=== PATIENT | male | born 1945 | race Caucasian/White ===

== ENCOUNTER 2017-07-09 19:01 | Inpatient (IN) | payer MEDICARE, MEDICAID ==
--- NOTE | 2017-07-09 19:59 | ED Physician Chart ---
ED Chief Complaint/HPI - Patient Information Date Seen:: 07/09/17 Time Seen:: 19:00 Chief Complaint:: HYPOXEMIA History of Present Illness:: THIS IS A 72 YO SENIOR CARE PATIENT SENT TO ER FOR AN EVALUATION OF HIS SOB AND LOW SATURATION. 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 HE HAS A SEIZURE DISORDER AND HAS HEART DISEASE. Allergies:: Allergies Allergy/AdvReac Type Severity Reaction Status Date / Time No Known Allergies Allergy Verified 07/09/17 19:23 Vitals:: Vital Signs - 8 hr 07/09/17 19:05 Temp 97.6 F HR 82 RR 28 BP 92/64 O2 Sat % 96 Historian:: Medical Records Review:: Nurse's Note Reviewed, Transfer documents Reviewed ED Review of Systems - Review of Systems General/Constitutional: No fever, No chills, No weight loss, Weakness, No diaphoresis, No edema, No loss of appetite Skin: No skin lesions, No rash, No bruising Head: No headache, No light-headedness Eyes: No loss of vision, No pain, No diplopia ENT: No earache, No nasal drainage, No sore throat, No tinnitus Neck: No neck pain, No swelling, No thyromegaly, No stiffness, No mass noted Cardio Vascular: No chest pain, No palpitations, No PND, No orthopnea, No edema Pulmonary: SOB, No cough, No sputum, No wheezing GI: No nausea, No vomiting, No diarrhea, No pain, No melena, No hematochezia, No constipation, No hematemesis G/U: No dysuria, No frequency, No hematuria Musculoskeletal: No bone or joint pain, No back pain, No muscle pain Endocrine: No polyuria, No polydipsia Psychiatric: No prior psych history, No depression, No anxiety, No suicidal ideation Hematopoietic: No bruising, No lymphadenopathy Allergic/Immuno: No urticaria, No angioedema Neurological: No syncope, No focal symptoms, Weakness, No paresthesia, No headache, Seizure, No dizziness, No confusion, No vertigo ED Past Medical History - Past Medical History Obtainable: Yes Past Medical History: HTN, CAD, CVA/TIA, Seizures Family History: None Social History: Non Smoker, No Alcohol, No Drug Use Family Medical History - Family Member Son History Unknown: Yes ED Physical Exam - Physical Examination General/Constitutional: Awake, Well-developed, well-nourished, Alert, No distress, GCS 15, Non-toxic appearing, Ambulatory Head: Atraumatic Eyes: Lids, conjuctiva normal, PERRL, EOMI Skin: Nl inspection, No rash, No skin lesions, No ecchymosis, Well hydrated, No lymphadenopathy ENMT: External ears, nose nl, Nasal exam nl, Lips, teeth, gums nl Neck: Nontender, Full ROM w/o pain, No JVD, No nuchal rigidity, No bruit, No mass, No stridor Respiratory: Nl effort/Exclusion, Clear to Auscultation, No Wheeze/Rhonchi/Rales Cardio Vascular: RRR, No murmur, gallop, rubs, NL S1 S2 GI: No tenderness/rebounding/guarding, No organomegaly, No hernia, Normal BS's, Nondistended, No mass/bruits, No McBurney tenderness : No CVA tenderness Extremities: No tenderness or effusion, Full ROM, normal strength in all extremities, No edema, Normal digits & nails Other Extremities comments:: MUSCLE WASTING OF ALL FOUR EXTREMITIES WITH NO EDEMA Neuro/Psych: Alert/oriented, DTR's symmetric, Normal sensory exam, Judgement/ insight normal, Mood normal, Normal gait, No focal deficits Other Neuro/Psych comments:: RIGHT SIDED WEAKNESS AND UNABLE TO SPEAK WELL Misc: Normal back, No paraspinal tenderness ED Labs/Radiology/EKG Results - Lab Results Results: Last Vital Signs Temp 98.0 F 07/10/17 05:34 Pulse 122 07/10/17 05:34 Resp 26 07/10/17 05:34 BP 96/50 07/10/17 05:34 Pulse Ox 100 07/10/17 05:34 Allergies No Known Allergies Allergy (Verified 07/09/17 19:23) Active Medications Albuterol/Ipratropium (Duoneb Neb) 3 ml HHN [id number] PRN PRN Reason: Shortness of Breath Stop: 09/08/17 06:59 Ceftriaxone Sodium 1 gm/ (Sodium Chloride) 50 mls @ 100 mls/hr IV Q24HR ARMAND Stop: 09/08/17 20:59 Azithromycin 500 mg/ Sodium (Chloride) 250 mls @ 250 mls/hr IV Q24HR ARMAND Stop: 09/08/17 20:59 Norepinephrine Bitartrate 4 mg (/ Dextrose) 254 mls @ 30.48 mls/hr IV TITR PRN ; Protocol; 8 MCG/MIN PRN Reason: BP MAINTENANCE (PER PROTOCOL) Stop: 09/08/17 02:02 Last Titration: 07/10/17 06:45 Dose: 24 mcg/min, 91.44 mls/hr Dextrose/Sodium Chloride (D5-0.9%Ns) 1,000 mls @ 125 mls/hr IV .Q8H ARMAND Stop: 09/08/17 02:14 Last Infusion: 07/10/17 06:00 Dose: 125 mls/hr Heparin Sodium/Dextrose (Heparin Drip) 25,000 units in 250 mls @ 0 mls/hr IV TITR PRN; Protocol; 0 UNITS/HR PRN Reason: PROTOCOL Stop: 09/08/17 02:36 Last Titration: 07/10/17 06:00 Dose: 850 units/hr, 8.5 mls/hr Miscellaneous (Heparin Drip Per Pharmacy) 1 ea PRN ARMAND PRN Reason: Protocol Stop: 09/08/17 00:14 Intake & Output 07/10/17 07/11/17 06:59 06:59 Intake Total 3364.083 Output Total 0 Balance 3364.083 Weight (lbs) 49.895 kg Orders 07/09/17 19:20 CHEST, 1 VIEW [RAD] Stat 07/09/17 19:21 URINALYSIS W/REFLEX Stat 07/09/17 19:45 MRSA SCREEN [facility] [place] Routine 07/09/17 19:48 KEPPRA/LEVETIRACETAM Stat 07/09/17 20:10 BLOOD CULTURE-SANTOSH Stat 07/10/17 02:39 Additional Notes for Nursing ONCE Lab Tests 07/09/17 07/09/17 07/09/17 19:20 19:48 19:48 WBC 8.7 RBC 5.94 H Hgb 16.5 Hct 51.3 MCV 86.3 MCH 27.8 MCHC Differential 32.1 RDW 14.8 Plt Count 123 L MPV 9.3 Neutrophils % Band Neutrophils % 15 H Lymphocytes % Monocytes % Neutrophils (Manual) 72 Lymphocytes 7 L Monocytes 6 Platelet Estimate SLIGHT DECREASED PT INR PTT (Actin FS) Specimen Source arterial Sample Site rr pH 7.52 H pCO2 29.0 L pO2 53.0 L HCO3 26.0 Base Excess 1.6 O2 Saturation 91.0 L Timothy Test yes Vent Rate n/a Inspired O2 21 Tidal Volume n/a PEEP n/a Pressure (ins/psv/peep) n/a Critical Value abroedel Sodium 150 H Potassium 3.1 L Chloride 116 H Carbon Dioxide 24.0 Anion Gap 13.1 BUN 88 H* Creatinine 1.6 H Est GFR ( Amer) TNP Est GFR (Non-Af Amer) TNP BUN/Creatinine Ratio 55.0 Glucose 97 Calcium 10.7 H Total Bilirubin 0.7 AST 26 ALT 18 Alkaline Phosphatase 73 Troponin I Total Protein 8.1 Albumin 3.5 L Globulin 4.6 Albumin/Globulin Ratio 0.8 L TSH 07/09/17 07/09/17 07/09/17 19:48 19:48 21:10 WBC RBC Hgb Hct MCV MCH MCHC Differential RDW Plt Count MPV Neutrophils % Band Neutrophils % Lymphocytes % Monocytes % Neutrophils (Manual) Lymphocytes Monocytes Platelet Estimate PT 11.1 INR 1.07 PTT (Actin FS) 26.9 Specimen Source Sample Site pH pCO2 pO2 HCO3 Base Excess O2 Saturation Timothy Test Vent Rate Inspired O2 Tidal Volume PEEP Pressure (ins/psv/peep) Critical Value Sodium Potassium Chloride Carbon Dioxide Anion Gap BUN Creatinine Est GFR ( Amer) Est GFR (Non-Af Amer) BUN/Creatinine Ratio Glucose Calcium Total Bilirubin AST ALT Alkaline Phosphatase Troponin I 0.03 Total Protein Albumin Globulin Albumin/Globulin Ratio TSH 1.94 07/10/17 07/10/17 00:06 04:10 WBC 6.0 D RBC 5.11 Hgb 14.3 Hct 43.6 D MCV 85.3 MCH 28.0 MCHC Differential 32.8 RDW 14.6 Plt Count 100 L MPV 11.2 Neutrophils % 97.3 H Band Neutrophils % Lymphocytes % 1.6 L Monocytes % 1.0 L Neutrophils (Manual) Lymphocytes Monocytes Platelet Estimate PT INR PTT (Actin FS) Specimen Source arterial Sample Site rr pH 7.48 H pCO2 23.0 L* pO2 88.0 HCO3 21.3 Base Excess -4.7 L O2 Saturation 97.0 Timothy Test positive Vent Rate n/a Inspired O2 100% Tidal Volume n/a PEEP N/A Pressure (ins/psv/peep) N/A Critical Value ABROEDEL Sodium Potassium Chloride Carbon Dioxide Anion Gap BUN Creatinine Est GFR ( Amer) Est GFR (Non-Af Amer) BUN/Creatinine Ratio Glucose Calcium Total Bilirubin AST ALT Alkaline Phosphatase Troponin I Total Protein Albumin Globulin Albumin/Globulin Ratio TSH - Radiology Results Results: CHEST = NAD WITH OLD FIBROTIC AREAS NOTED ED Assessment - Assessment General Assessment: HYPOXEMIA DEHYDRATION ED Septic Shock - . Is Septic Shock (SBP<90, OR Lactate>4 mmol\L) present?: No - <6hrs of presentation: Vital Signs: Vital Signs - 8 hr 07/09/17 19:05 Temp 97.6 F HR 82 RR 28 BP 92/64 O2 Sat % 96 ED Reassessment (Disposition) - Reassessment Reassessment Condition:: Improved - Diagnosis Diagnosis:: HYPOXEMIA DEHYDRATION - Aftercare/Follow up Instructions Aftercare/Follow-Up Instructions:: Counseled pt & family regarding lab results/ diagnosis & need follow up - Patient Disposition Discharge/Transfer:: Acute Care w/in this hosp Admitted to:: Telemetry Admitting Medical Physician:: Caio Castaneda ED Discharge Plan - Patient Disposition Admit/Discharge/Transfer: Acute Care w/in this hosp Condition at Disposition: Improved
[2017-07-09 20:01] LABS: HEMATOCRIT 51.3 % (41.0-60); HEMOGLOBIN 16.5 gm/dL (12-16); MEAN CELL VOLUME 86.3 fl (80-99); MEAN CORPUSCULAR HEMOGLOBIN 27.8 pg (27.0-31.0); MEAN CORPUSCULAR HGB CONC 32.1 pg (28.0-36.0); MEAN PLATELET VOLUME 9.3 fl; PLATELET COUNT 123 Th/cmm (150-400); RED BLOOD COUNT 5.94 Mil/cmm (3.80-5.80); RED CELL DISTRIBUTION WIDTH 14.8 % (11.5-20.0); WHITE BLOOD COUNT 8.7 Th/cmm (4.8-10.8)
[2017-07-09 20:03] LABS: MANUAL DIFF REQUIRED? YES
[2017-07-09 20:10] LABS: ALLEN TEST yes; pH 7.52 (7.35-7.45)
[2017-07-09] MEDS ORDERED: Sodium Chloride 0.9% 1,000 ML IV ONE (20:10)
[2017-07-09 20:17] LABS: ALB/GLOB RATIO 0.8 (1.0-1.8); ALBUMIN 3.5 gm/dL (4.2-5.5); ALKALINE PHOSPHATASE 73 U/L (34-104); ANION GAP 13.1 (7.0-16.0); BILIRUBIN,TOTAL 0.7 mg/dL (0.3-1.0); CALCIUM SERUM 10.7 mg/dL (8.6-10.3); CHLORIDE 116 mEq/L (98-107); CREATININE - SERUM 1.6 mg/dL (0.7-1.3); GLUCOSE 97 mg/dL (70-105); POTASSIUM SERUM 3.1 mEq/L (3.5-5.1); SGOT 26 U/L (13-39); SGPT/ALT 18 U/L (7-52); SODIUM SERUM 150 mEq/L (136-145); TOTAL PROTEIN,SERUM 8.1 gm/dL (6.0-8.3)
[2017-07-09 20:21] LABS: BUN - UREA NITROGEN 88 mg/dL (7-25)
[2017-07-09 20:49] LABS: BAND NEUTROPHILE 15 % (0-10); LYMPHOCYTE 7 % (20-50); MONOCYTE 6 % (2-10); NEUTROPHILS 72 % (40-80)
[2017-07-09 20:50] LABS: PLATELET ESTIMATE SLIGHT DECREASED (NORMAL)
[2017-07-09 21:16] LABS: INR 1.07 (0.5-1.4); PROTHROMBIN TIME (TEST) 11.1 SECONDS (9.5-11.5)
[2017-07-09] MEDS ORDERED: Albuterol/Ipratropium Neb 3 ML AERS HHN PRN (22:02)
[2017-07-09] MEDS ORDERED: Sodium Chloride 0.9% 1,000 ML IV SCH (22:03)
[2017-07-09] MEDS ORDERED: Azithromycin 500 MG in Sodium Chloride 0.9% 250 ML IV SCH (22:15)
[2017-07-09] MEDS ORDERED: Albuterol/Ipratropium Neb 3 ML AERS HHN ONE (23:36)
[2017-07-10] MEDS ORDERED: Sodium Chloride 0.9% 1,000 ML IV ONE (00:09)
[2017-07-10] MEDS: D5-0.9%NS 1,000 ML IV SCH ×2 (01:00→10:38)
[2017-07-10] MEDS ORDERED: SODIUM CHLORIDE 0.9% IV ONE (02:05)
[2017-07-10] MEDS ORDERED: LIDOCAINE IV ONE (02:05)
[2017-07-10] MEDS ORDERED: POTASSIUM CHLORIDE IV ONE (02:05)
[2017-07-10 02:13] LABS: pH 7.48 (7.35-7.45)
[2017-07-10 02:14] LABS: ALLEN TEST positive
[2017-07-10] MEDS ORDERED: KCL 20mEq/100mL Premix 40 MEQ/200 ML PIGGYBACK IV ONE (02:19)
[2017-07-10] MEDS ORDERED: Norepinephrine 4 mg/4mL Vial IV ONE ×3 (02:59→10:18)
[2017-07-10 04:40] VITALS: BP 91/55
[2017-07-10] MEDS: Heparin 25,000 Units In D5W 25,000 UNITS/250 ML BAG IV PRN (04:46)
[2017-07-10 05:06] LABS: LYMPHOCYTE ABSOLUTE 0.1 Th/cmm (1.5-3.0); MANUAL DIFF REQUIRED? YES; MONOCYTE ABSOLUTE 0.1 Th/cmm (0.3-1.0); NEUTROPHILE ABSOLUTE 5.8 Th/cmm (1.8-8.0)
[2017-07-10 05:13] LABS: % LYMPHOCYTES 1.6 % (20.0-50.0); % NEUTROPHILS 97.3 % (40.0-80.0); HEMOGLOBIN 14.3 gm/dL (12-16); MEAN CELL VOLUME 85.3 fl (80-99); MEAN CORPUSCULAR HGB CONC 32.8 pg (28.0-36.0); MEAN PLATELET VOLUME 11.2 fl; PLATELET COUNT 100 Th/cmm (150-400); RED BLOOD COUNT 5.11 Mil/cmm (3.80-5.80); RED CELL DISTRIBUTION WIDTH 14.6 % (11.5-20.0)
[2017-07-10 05:47] LABS: ALB/GLOB RATIO 0.7 (1.0-1.8); ALBUMIN 2.5 gm/dL (4.2-5.5); ALKALINE PHOSPHATASE 262 U/L (34-104); ANION GAP 13.8 (7.0-16.0); BILIRUBIN,TOTAL 1.2 mg/dL (0.3-1.0); CALCIUM SERUM 9.1 mg/dL (8.6-10.3); CHLORIDE 124 mEq/L (98-107); CHOLESTEROL 48 mg/dL (<200); CREATININE - SERUM 1.7 mg/dL (0.7-1.3); GLUCOSE 78 mg/dL (70-105); HDL -HIGH DENSITY LIPOPROTEIN 18 mg/dL (23-92); MAGNESIUM 1.9 mg/dL (1.9-2.7); PHOSPHOROUS 3.1 mg/dL (2.5-5.0); SGOT 477 U/L (13-39); SGPT/ALT 154 U/L (7-52); SODIUM SERUM 153 mEq/L (136-145); TOTAL PROTEIN,SERUM 5.9 gm/dL (6.0-8.3); TRIGLYCERIDES 120 mg/dL (<150); URIC ACID 7.9 mg/dL (4.4-7.6)
[2017-07-10 06:45] LABS: HEMATOCRIT 43.6 % (41.0-60)
[2017-07-10 08:33] LABS: BUN - UREA NITROGEN 85 mg/dL (7-25); POTASSIUM SERUM 2.8 mEq/L (3.5-5.1)
--- NOTE | 2017-07-10 09:40 | Diagnostic Imaging Report ---
CT scan of the chest without intravenous contrast HISTORY: Shortness of breath Total DLP equals 212 CTDI equals 5.1 Axial sections were obtained from a level above the clavicles down to level below the diaphragm. The examination demonstrates bilateral multifocal airspace infiltrate/consolidation within the right lower lobe and left lower lobes predominantly. Additional parenchymal changes also noted in the right upper and right middle lobe areas. Findings most likely related to an inflammatory etiology (pneumonia). Clinical correlation is needed. No significant free pleural fluid is seen. The heart size is normal. Coronary artery calcification noted. No abnormal mediastinal masses. No definite hilar masses. IMPRESSION: 1. Extensive multifocal bilateral infiltrates with more consolidation in the right lower lobe. Findings consistent with pneumonia possibly related to aspiration. Clinical correlation is needed. 2. Coronary artery calcification 3. Inferior vena cava filter
--- NOTE | 2017-07-10 09:41 | Diagnostic Imaging Report ---
Portable chest x-ray HISTORY: Shortness of breath The heart size is normal. There is hazy infiltrate within left lower lobe. More focal infiltrate noted in the right lower lobe. Changes suggest pneumonia. IMPRESSION: 1. Increased infiltrate in the right lower lobe since July 09, 2017. Persistent hazy infiltrate left lower lobe.
[2017-07-10 10:40] LABS: INR 1.22 (0.5-1.4); PROTHROMBIN TIME (TEST) 12.8 SECONDS (9.5-11.5)
--- NOTE | 2017-07-10 10:43 | Diagnostic Imaging Report ---
Portable chest x-ray HISTORY: Pain The heart size is normal. Accentuation of interstitial markings within the right lower lobe. Infiltrate is difficult to exclude. Clinical correlation and follow-up recommended. IMPRESSION: 1. Questionable infiltrate right lower lobe. Clinical correlation and follow-up recommended.
[2017-07-10] MEDS ORDERED: Lactated Ringer 1,000 ML IV SCH (11:23)
[2017-07-10] MEDS ORDERED: Cefepime 1 GM in Sodium Chloride 0.9% 50 ML IV SCH (11:30)
[2017-07-10] MEDS ORDERED: Sodium Bicarbonate 8.4% 50mEq PFS IVP ONE (15:11)
[2017-07-10] MEDS: Albuterol/Ipratropium Neb 3 ML AERS HHN SCH ×3 (16:00→22:55)
--- NOTE | 2017-07-10 17:34 | Consultation ---
Consult Note - Consult Note Service Date: 07/10/17 Referring Physician: Caio Castaneda Consult Note: PHYSICIAN Consultation Note: Date of Admission: 07/09/17 Purpose of Consultation: Sepsis. Chief Complaint: Patient LEONA COTTON was admitted to location Intensive Care Unit with HYPOXEMIA,RESPIRATORY DISTRESS,ARF. History of Present Illness:The patient is a 72-year-old male with a past medical history of CVA, TIA, seizure disorder, carotid disease, hypertension brought in from nursing facility for shortness of breath and hypoxia, on pulse ox. On initial evaluation, the patient's temperature was 97.6 degrees Fahrenheit and WBC count was 8700 with 15% bands. The patient was hypotensive, so fluid boluses were given as well as he was started on high dose of Levophed. The patient was admitted to ICU, initially patient had received Rocephin, Zithromax. The patient also received Solu-Medrol 125 mg IV, 1 dose. Ultimately, antibiotics were changed to vancomycin and cefepime. Cefepime was changed to Zosyn. Meanwhile, chest x-ray showed a right lower lobe infiltrate. The patient was aphasic. Follows command, but unable to give any history. Past Medical History: hypertension, coronary artery disease, CVA, TIA, seizure disorder. Allergies Allergy/AdvReac Type Severity Reaction Status Date / Time No Known Allergies Allergy Verified 07/09/17 19:23 Vital Signs Temp 99.6 F 07/10/17 12:00 Pulse 88 07/10/17 16:00 Resp 21 07/10/17 16:00 BP 116/70 07/10/17 15:00 Pulse Ox 100 07/10/17 16:00 Intake & Output 07/09/17 07/10/17 07/10/17 18:59 06:59 18:59 Intake Total 2364.083 1507.65 Output Total 0 Balance 2364.083 1507.65 Weight (lbs) 49.895 kg Intake: Intake, IV Amount 2364.083 1507.65 Azithromycin 500 mg In 250 Sodium Chloride 0.9% 250 ml @ 250 mls/hr IV Q24HR ARMAND Rx#:[id number] D5-0.9%Ns 1,000 ml @ 125 625 375 mls/hr IV .Q8H ARMAND Rx#: [id number] Heparin 25,000 Units In 10.483 72.25 D5W 25,000 units In 250 ml @ 0 UNITS/HR IV TITR PRN Rx#:[id number] Norepinephrine 4 mg In 228.60 533.4 Dextrose 5% 250 ml @ 8 MCG/MIN 30.48 mls/hr IV TITR PRN Rx#:[id number] Potassium Chloride 40 meq 277 Lidocaine 1% 20mL Vial 70 mg In Sodium Chloride 0.9% 250 ml @ 68 mls/hr IV X1 ONE Rx#:[id number] Vancomycin HCl 1 gm In 250 Sodium Chloride 0.9% 250 ml @ 165 mls/hr IV Q24H [facility] Rx#:[id number] Oral 0 Output: Urine 0 Other: # Bowel Movements 1 Stool Characteristics Soft Brown Laboratory Results - last 24 hr 07/10/17 07/10/17 07/10/17 00:06 04:10 04:10 WBC 6.0 D RBC 5.11 Hgb 14.3 Hct 43.6 D MCV 85.3 MCH 28.0 MCHC Differential 32.8 RDW 14.6 Plt Count 100 L MPV 11.2 Neutrophils % 97.3 H Lymphocytes % 1.6 L Monocytes % 1.0 L PT INR PTT (Actin FS) D-Dimer Specimen Source arterial Sample Site rr pH 7.48 H pCO2 23.0 L* pO2 88.0 HCO3 21.3 Base Excess -4.7 L O2 Saturation 97.0 Timothy Test positive Vent Rate n/a Inspired O2 100% Tidal Volume n/a PEEP N/A Pressure (ins/psv/peep) N/A Critical Value ABROEDEL Sodium 153 H Potassium 2.8 L* Chloride 124 H Carbon Dioxide 18.0 L Anion Gap 13.8 BUN 85 H* Creatinine 1.7 H Est GFR ( Amer) TNP Est GFR (Non-Af Amer) TNP BUN/Creatinine Ratio 50.0 Glucose 78 Whole Bld Lactic Acid Uric Acid 7.9 H Calcium 9.1 Phosphorus 3.1 Magnesium 1.9 Total Bilirubin 1.2 H AST 477 H ALT 154 H Alkaline Phosphatase 262 H B-Natriuretic Peptide Total Protein 5.9 L Albumin 2.5 L Globulin 3.4 Albumin/Globulin Ratio 0.7 L Triglycerides 120 Cholesterol 48 LDL Cholesterol Direct 13 L HDL Cholesterol 18 L TSH 07/10/17 07/10/17 07/10/17 04:10 04:10 04:10 WBC RBC Hgb Hct MCV MCH MCHC Differential RDW Plt Count MPV Neutrophils % Lymphocytes % Monocytes % PT INR PTT (Actin FS) D-Dimer 4700 H Specimen Source Sample Site pH pCO2 pO2 HCO3 Base Excess O2 Saturation Timothy Test Vent Rate Inspired O2 Tidal Volume PEEP Pressure (ins/psv/peep) Critical Value Sodium Potassium Chloride Carbon Dioxide Anion Gap BUN Creatinine Est GFR ( Amer) Est GFR (Non-Af Amer) BUN/Creatinine Ratio Glucose Whole Bld Lactic Acid Uric Acid Calcium Phosphorus Magnesium Total Bilirubin AST ALT Alkaline Phosphatase B-Natriuretic Peptide < 5.0 L Total Protein Albumin Globulin Albumin/Globulin Ratio Triglycerides Cholesterol LDL Cholesterol Direct HDL Cholesterol TSH 2.64 07/10/17 07/10/17 07/10/17 04:10 07:11 10:30 WBC RBC Hgb Hct MCV MCH MCHC Differential RDW Plt Count MPV Neutrophils % Lymphocytes % Monocytes % PT 12.8 H INR 1.22 PTT (Actin FS) 34.9 91.5 H* D-Dimer Specimen Source Sample Site pH pCO2 pO2 HCO3 Base Excess O2 Saturation Timothy Test Vent Rate Inspired O2 Tidal Volume PEEP Pressure (ins/psv/peep) Critical Value Sodium Potassium Chloride Carbon Dioxide Anion Gap BUN Creatinine Est GFR ( Amer) Est GFR (Non-Af Amer) BUN/Creatinine Ratio Glucose Whole Bld Lactic Acid 5.76 H* Uric Acid Calcium Phosphorus Magnesium Total Bilirubin AST ALT Alkaline Phosphatase B-Natriuretic Peptide Total Protein Albumin Globulin Albumin/Globulin Ratio Triglycerides Cholesterol LDL Cholesterol Direct HDL Cholesterol TSH 07/10/17 Unknown WBC RBC Hgb Hct MCV MCH MCHC Differential RDW Plt Count MPV Neutrophils % Lymphocytes % Monocytes % PT INR PTT (Actin FS) D-Dimer Specimen Source Sample Site pH pCO2 pO2 HCO3 Base Excess O2 Saturation Timothy Test Vent Rate Inspired O2 Tidal Volume PEEP Pressure (ins/psv/peep) Critical Value Sodium Potassium Chloride Carbon Dioxide Anion Gap BUN Creatinine Est GFR ( Amer) Est GFR (Non-Af Amer) BUN/Creatinine Ratio Glucose Whole Bld Lactic Acid 3.98 H* Uric Acid Calcium Phosphorus Magnesium Total Bilirubin AST ALT Alkaline Phosphatase B-Natriuretic Peptide Total Protein Albumin Globulin Albumin/Globulin Ratio Triglycerides Cholesterol LDL Cholesterol Direct HDL Cholesterol TSH Home Medication Medication Instructions Recorded Type Acetaminophen [Tylenol] 650 mg PO Q6HR PRN 07/09/17 History Ascorbic Acid [Vitamin C] 500 mg PO DAILY 07/09/17 History Atorvastatin Calcium [Lipitor] 20 mg PO HS 07/09/17 History Dextran 70/Hypromellose/Pf 1 each EACH EYE DAILY 07/09/17 History [Artificial Tears Drops] Docusate Sodium [Colace] 100 mg PO DAILY 07/09/17 History Levetiracetam [Keppra Xr] 750 mg PO Q12HR 07/09/17 History Magnesium Hydroxide [Milk of 30 ml PO HS PRN 07/09/17 History Magnesia] Mirtazapine 7.5 mg PO HS 07/09/17 History Multivitamin with Minerals 1 tab PO DAILY 07/09/17 History [Multivitamins with Minerals] Omeprazole 20 mg PO DAILY 07/09/17 History Sertraline [Zoloft] 25 mg PO DAILY 07/09/17 History Sucralfate [Carafate] 10 ml PO ACHS 07/09/17 History Zolpidem Tartrate [Ambien] 5 mg PO HS PRN 07/09/17 History Current Medications Generic Name Dose Route Start Last Admin Trade Name Freq PRN Reason Stop Dose Admin Albuterol/Ipratropium 3 ml 07/10/17 15:00 07/10/17 16:00 Duoneb Neb HHN 09/08/17 14:59 Not Given Q4HRT ARMAND Norepinephrine Bitartrate 4 mg 254 mls @ 30.48 mls/hr 07/10/17 02:03 15:42 / Dextrose IV 09/08/17 02:02 30 mcg/min TITR PRN 114.3 mls/hr BP MAINTENANCE (PER PROTOCOL) Administration Protocol 8 MCG/MIN Dextrose/Sodium Chloride 1,000 mls @ 125 mls/hr 07/10/17 02:15 07/10/17 10:38 D5-0.9%Ns IV 09/08/17 02:14 125 mls/hr .Q8H ARMAND Administration Heparin Sodium/Dextrose 25,000 units in 250 mls @ 0 mls/hr 07/10/17 02:37 08/24 14:30 Heparin Drip IV 09/08/17 02:36 0 units/hr TITR PRN 0 mls/hr PROTOCOL Titration Protocol 0 UNITS/HR Vancomycin HCl 1 gm/ Sodium 250 mls @ 165 mls/hr 07/10/17 11:30 07/10/17 15: 15 Chloride IV 09/08/17 11:29 Infused Q24H ARMAND Infusion Piperacillin Sod/Tazobactam 50 mls @ 100 mls/hr 07/10/17 13:00 07/10/17 15:24 Sod 2.25 gm/ Sodium Chloride IV 09/08/17 12:59 100 mls/hr Q8HR ARMAND Administration Review of Systems: A 12 point ROS was reviewed with the pertinent positive and negatives noted in the HPI. The patient unable to give any history. CONSTITUTIONAL: The patient had no fever, no chills, no weight loss, generalized weakness, no diaphoresis, no edema, no loss of appetite. HEENT: There is no diplopia, no photophobia, no sore throat. RESPIRATORY: The patient has no cough, but patient has shortness of breath and hypoxia. No wheezing. CARDIOVASCULAR: No chest pain or palpitation. GASTROINTESTINAL: No nausea, no vomiting, no diarrhea, no constipation. GENITOURINARY: No dysuria, no hematuria. NEUROLOGIC: No headache, no dizziness, no focal weakness. Social History Smoking Status Unknown if ever smoked Lives at [facility]. Family Medical History Unknown. Physical Exam: VITAL SIGNS: Shows temperature is 98.4 degrees Fahrenheit, pulse is 88, respiration 21, blood pressure 120/68, on Levophed. GENERAL: The patient is cachectic, not in acute distress. HEENT: Head is normocephalic, atraumatic. Oral cavity moist, pink tongue. Eyes: Pallor is present, no icterus. PERRLA, EOMI. NECK: Supple, no JVD, no carotid bruit. Trachea midline. CHEST: Bilateral breath sounds. No crackles or wheezing. HEART: S1, S2 within normal limits. Regular rhythm. No murmur, no gallop. ABDOMEN: Soft, nontender, nondistended. Bowel sounds present. EXTREMITIES: No cyanosis, no clubbing, no edema. SKIN: The patient's lower extremity skin is mottled. CENTRAL NERVOUS SYSTEM: Alert and awake, follows the command, but unable to communicate. Aphasic. The patient has some weakness on the left side. BACK: The patient has stage II sacral decubitus ulcer with no surrounding erythema. LABORATORY DATA: Current lab shows WBC count 6000, hemoglobin 14.3, hematocrit 43.6, platelets are 100,000, neutrophil 97.3%. INR 1.22 and PTT 91.5, D-dimer is 4700. Sodium is 153, potassium 2.8, chloride 104, bicarbonate is 18, BUN is 85, creatinine 1.7, glucose is 78 and lactic acid is 5.76, AST 477, ALT is 154, alkaline phosphatase is 262. Chest x-ray shows worsening of infiltrate on the right side. CT chest revealed extensive multifocal bilateral infiltrate, more consolidation in the right lower lobe consistent with pneumonia, possibly related to aspiration, coronary artery calcification inferior vena cava filter. IMPRESSION: 1. Severe septic shock with multiorgan failure. 2. Pneumonia, likely aspiration pneumonia versus atypical pneumonia. 3. Cerebrovascular accident. 4. Respiratory insufficiency. 5. Hepatitis. 6. Benign prostatic hypertrophy. 7. Acute renal failure, acute kidney injury. 8. Lactic acidosis. 9. History of hypertension. 10. History of chronic disease. 11. History of seizure disorder. 12. Sacral decubitus ulcer. RECOMMENDATION AND PLAN: We will continue vancomycin and Zosyn, add Levaquin. Check legionella and mycoplasma serologies. Thank you, Dr. Castaneda for involving me in taking care of this patient. I do not give IV fluid support and pressor support. Signed, Jose F Ng M.D. 07/10/[id number]
--- NOTE | 2017-07-10 20:31 | Consultation ---
DATE OF CONSULTATION: REASON FOR CONSULTATION: The patient seen in the ICU for Sena catheter placement. HISTORY OF PRESENT ILLNESS: This is a 72-year-old skilled nursing patient, who was admitted with respiratory failure and history of previous CVA, left-sided paralysis, and seizure disorder. He also has heart disease and failure to thrive. A Sena catheter was unsuccessful by the nurses. This was needed to monitor urine output as the patient did not urinate since admission. He is on Levophed drip for hypotension and sepsis with elevated lactic acid. PAST MEDICAL HISTORY: Documented as having hypertension, coronary artery disease, and stroke as well as seizures. SOCIAL HISTORY: [facility] resident. No other information available. REVIEW OF SYSTEMS: No fever or chills, but weight loss was noted. He has a sacral decubitus as well. No seizures were recorded. No chest pain, but there was shortness of breath. He requires breathing assistance. No vomiting or diarrhea noted. No dysuria or hematuria reported. PREADMISSION MEDICATIONS: Include Keppra, Lipitor, mirtazapine, omeprazole, Zoloft, Carafate, and zolpidem along with vitamins, stool softeners, etc. PHYSICAL EXAMINATION: GENERAL: He is noncommunicative, contracted, lethargic, significantly malnourished. VITAL SIGNS: Temperature 99.6 last recorded, heart rate 88, and blood pressure 114/66 on Levophed support. HEAD AND NECK: Normocephalic. Trachea central. Pupils equal and reactive. No jaundice. Thyroid and lymph nodes not palpable. Carotid bruit absent. CHEST: Loss of muscle mass. Intercostal muscles are fairly atrophic or diminished. LUNGS: Clear to auscultation. No rales. Occasional rhonchi. HEART: Heart sounds normal in sinus rhythm, no murmur. ABDOMEN: Soft, nontender, no organomegaly, mass, or hernia. GENITALIA: Normal male. Meatus exposed and normal. Penis circumcised. EXTREMITIES: Severe contractures of left leg at the hip and knee and difficulty opening up the legs to expose the perineum. Sacral decubitus ulcer. NEUROLOGIC: Unable to test. The patient does have hemiplegia. LABORATORY DATA: White count 6000, hemoglobin 14.3, and platelets 100. PT/INR 1.2. D-dimer elevated to 4700. Heparin drip was started and then stopped. PCO2 elevated to 23. Potassium down to 2.8, sodium up to 153, BUN 85, creatinine 1.7, lactic acid 5.7. Liver functions mildly elevated, AST elevated to 477, ALT to 154, and alkaline phosphatase 262. DIAGNOSTIC DATA: Chest CT showed bilateral infiltrates extensive and coronary artery calcification and vena cava filter. IMPRESSION: Septic shock from pneumonia, needs a urine output monitoring. We will attempt a Sena catheter at the bedside. Ultrasound had showed the bladder at only about 150 mL in it, but the study was inadequate due to the patient's habitus. Examining at the bedside, the patient was found to be full of urine and had urinated a large amount in the bed sheets. I attempted a Sena catheter size 16 coude to help with the monitoring and was able to get it in with minimal resistance. There was hardly any urine in the bladder at this point. IMPRESSION: Septic shock from bilateral pneumonia, possibly aspiration, history of coronary artery disease, history of stroke, failure to thrive, and history of decubitus ulcers. The patient also has severe contractures of lower extremities. History of hyperlipidemia and hypertension as well. JOB# [id number]
[2017-07-10] MEDS ORDERED: Azithromycin 500 mg in 0.9% NS 250 mL IV SCH (21:00)
[2017-07-10] MEDS ORDERED: cefTRIAXone 1 GM in Sodium Chloride 0.9% 50 ML IV SCH (21:00)
[2017-07-10] MEDS: PIPERACILLIN SODIUM IV SCH (22:05)
[2017-07-10] MEDS: TAZOBACT IV SCH (22:05)
[2017-07-10] MEDS: SODIUM CHLORIDE 0.9% IV SCH (22:05)
--- NOTE | 2017-07-11 01:20 | Consultation ---
DATE OF CONSULTATION: 07/10/2017 REFERRING PHYSICIAN: Dr. Castaneda. REASON FOR CONSULTATION: CVA. HISTORY OF PRESENT ILLNESS: The patient is a 72-year-old male with a past medical history of CVA, TIA, seizure disorder, carotid disease, hypertension brought in from nursing facility for shortness of breath and hypoxia, on pulse ox. On initial evaluation, the patient's temperature was 97.6 degrees Fahrenheit and WBC count was 8700 with 15% bands. The patient was hypotensive, so fluid boluses were given as well as he was started on high dose of Levophed. The patient was admitted to ICU, initially patient had received Rocephin, Zithromax. The patient also received Solu-Medrol 125 mg IV, 1 dose. Ultimately, antibiotics were changed to vancomycin and cefepime. Cefepime was changed to Zosyn. Meanwhile, chest x-ray showed a right lower lobe infiltrate. The patient was ___. Follows command, but unable to give any history. PAST MEDICAL HISTORY: As mentioned above, hypertension, coronary artery disease, CVA, TIA, seizure disorder. SOCIAL HISTORY: The patient lives in a shelter. No history of smoking, alcohol or drug use. FAMILY HISTORY: Not available. REVIEW OF SYSTEMS: The patient unable to give any history. The patient had no fever, no chills, no weight loss, generalized weakness, no diaphoresis, no edema, no loss of appetite. HEENT: There is no diplopia, no photophobia, no sore throat. RESPIRATORY: The patient has no cough, but patient has shortness of breath and hypoxia. No wheezing. CARDIOVASCULAR: No chest pain or palpitation. GASTROINTESTINAL: No nausea, no vomiting, no diarrhea, no constipation. GENITOURINARY: No dysuria, no hematuria. NEUROLOGIC: No headache, no dizziness, no focal weakness. PHYSICAL EXAMINATION: VITAL SIGNS: Shows temperature is 98.4 degrees Fahrenheit, pulse is 88, respiration 21, blood pressure 120/68, on Levophed. GENERAL: The patient is cachectic, not in acute distress. HEENT: Head is normocephalic, atraumatic. Oral cavity moist, pink tongue. Eyes: Pallor is present, no icterus. PERRLA, EOMI. NECK: Supple, no JVD, no carotid bruit. Trachea midline. CHEST: Bilateral breath sounds. No crackles or wheezing. HEART: S1, S2 within normal limits. Regular rhythm. No murmur, no gallop. ABDOMEN: Soft, nontender, nondistended. Bowel sounds present. EXTREMITIES: No cyanosis, no clubbing, no edema. SKIN: The patient's lower extremity skin is mottled. CENTRAL NERVOUS SYSTEM: Alert and awake, follows the command, but unable to communicate. Aphasic. The patient has ___ weakness on the left side. BACK: The patient has stage II sacral decubitus ulcer with no surrounding erythema. LABORATORY DATA: Current lab shows WBC count 6000, hemoglobin 14.3, hematocrit 43.6, platelets are 100,000, neutrophil 97.3%. INR 1.22 and PTT 91.5, D-dimer is 4700. Sodium is 153, potassium 2.8, chloride 104, bicarbonate is 18, BUN is 85, creatinine 1.7, glucose is 78 and lactic acid is 5.76, AST 477, ALT is 154, alkaline phosphatase is 262. Chest x-ray shows worsening of infiltrate on the right side. CT chest revealed extensive multifocal bilateral infiltrate, more consolidation in the right lower lobe consistent with pneumonia, possibly related to aspiration, coronary artery calcification inferior vena cava filter. IMPRESSION: 1. Severe septic shock with multiorgan failure. 2. Pneumonia, likely aspiration pneumonia versus atypical pneumonia. 3. Cerebrovascular accident. 4. Respiratory insufficiency. 5. Hepatitis. 6. Benign prostatic hypertrophy. 7. Acute renal failure, acute kidney injury. 8. Lactic acidosis. 9. History of hypertension. 10. History of chronic disease. 11. History of seizure disorder. 12. Sacral decubitus ulcer. RECOMMENDATION AND PLAN: We will continue vancomycin and Zosyn, add Levaquin. Check legionella and mycoplasma serologies. Thank you, Dr. Castaneda for involving me in taking care of this patient. I do not give IV fluid support and pressor support. JOB# [id number]
[2017-07-11] MEDS: Albuterol/Ipratropium Neb 3 ML AERS HHN SCH ×6 (02:04→22:50)
[2017-07-11 02:48] LABS: URINE MICROSCOPIC INDICATED? YES; URINE SOURCE CLEAN C
[2017-07-11] MEDS: D5-0.9%NS 1,000 ML IV SCH (03:23)
--- NOTE | 2017-07-11 04:04 | Consultation ---
DATE OF CONSULTATION: CHIEF COMPLAINT: The patient came in because of hypotension. HISTORY OF PRESENT ILLNESS: This is a 72-year-old male with past medical history of CVA, who was brought in because of hypotension. A few hours prior to admission, the patient was noted to be in respiratory distress. This was associated with hypoxemia. He was placed on 5 liters nasal cannula and his saturation improved to 95%. He was also found to be hypotensive with a blood pressure of 89/66. He was then brought to the Emergency Room. Chest x-ray revealed bilateral healthcare-acquired pneumonia. CT scan of the chest confirmed bilateral infiltrates, more on the right than on the left. White count was 8.7 with a BNP of less than 5. Labs drawn 1 month ago showed a BUN/creatinine of 23/0.67. His labs on admission were sodium of 150, BUN/creatinine of 88/1.6. He had no history of nausea and vomiting, no diarrhea. PAST MEDICAL HISTORY: 1. 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 2. Coronary artery disease. 3. Muscle atrophy. 4. Epilepsy. 5. Parkinson's disease. 6. Depression. 7. DJD. 8. Functional quadriplegia. 9. Essential hypertension. 10. Severe contractures. 11. Severe malnutrition. CURRENT MEDICATIONS: He is currently on albuterol/ipratropium, azithromycin, cefepime, ceftriaxone, methylprednisolone, vancomycin, and Zosyn. ALLERGIES: No known drug allergies. SOCIAL AND FAMILY HISTORY: I was not able to obtain directly from the patient because he is now stuporous on a Ventimask. REVIEW OF SYSTEMS: Again, I was not able to decipher directly from the patient because of his current mental status. PHYSICAL EXAMINATION: GENERAL: The patient is stuporous, on a Ventimask, mild respiratory distress. VITAL SIGNS: His blood pressure is 111/68, pulse 107, and afebrile. SKIN: Very poor turgor, warm, no rash, no jaundice appreciated. HEENT: Head normocephalic, atraumatic. Eyes: Unable to assess extraocular muscles. Pupils are equal, round, reactive to light and accommodates. Anicteric sclerae. Pale conjunctivae. Nose, midline nasal septum. Mouth very dry mucosa. Poor dentition. NECK: Supple, no adenopathy, no thyromegaly, no bruits. Trachea palpated in the midline. CHEST AND CARDIOVASCULAR: S1, S2. No rub, murmur, nor gallop appreciated. Point of maximal impulse fifth intercostal space, left midclavicular line. No abdominal or femoral bruits appreciated. LUNGS: Equal expansion. [id number] use of accessory muscles. No supraclavicular retractions. Scattered rhonchi. No wheezes, no rales appreciated. ABDOMEN: Flat, soft, positive for bowel sounds. No bruits either diastolic or systolic. RECTAL: Lax sphincter tone. GENITOURINARY: Normal appearing male genitalia. MUSCULOSKELETAL: No effusions present in his joints, but unable to assess his range of motion. EXTREMITIES: Severely contracted upper, especially lower extremities with muscle atrophy. NEUROLOGIC: The patient remains stuporous, unable to follow my neuro commands, so I was not able to pursue further my neuro exam. LABORATORY DATA: Did reveal white count 6, hemoglobin 14.3, hematocrit 43.6, platelets 100, and polys 97.3%. D-dimer 4700. Sodium 153, potassium 2.8, chloride 124, bicarbonate is 18, BUN 85, and creatinine 1.7. Lactic acid is 5.76. Uric acid 7.9, total bili 1.2, AST 477, ALT 152, and alkaline phosphatase 252. BNP of less than 5, albumin 2.5. IMPRESSION: 1. Acute kidney injury. The patient came in shock. Physical exam, which revealed dry oral mucosa, poor skin turgor was suggestive of ongoing dehydration. The patient also has not eaten or drank for the last several days. This would have enhanced his dehydration. Thus, his prerenal azotemia could have progressed to acute tubular injury. He also has overwhelming sepsis and the possibility of a urinary tract infection should also be considered due to recent history about 3 weeks ago. We also need to entertain acute interstitial nephritis. 2. Shock secondary to sepsis. 3. Sepsis secondary to bilateral healthcare-acquired pneumonia, possibly aspiration and also recurring complicated urinary tract infection. 4. Severe malnutrition. 5. Shock. 6. Anion gap metabolic acidosis. 7. Status post cerebrovascular accident secondary to subdural hematoma with left hemiplegia. 8. Coronary artery disease. 9. Muscle atrophy. 10. Epilepsy. 11. Parkinson disease. 12. Depression. 13. Degenerative joint disease. 14. Functional quadriplegia. 15. Essential hypertension. 16. Severe contraction. PLAN: 1. Continue with IV fluids D5 NS. The patient requires NS because he is currently on Levophed of 30 mcg per minute. His sodium may increase for now, but the priority is maintaining his blood pressure. 2. Urinalysis. 3. Urine culture and sensitivity. 4. Urine sodium, eosinophils, creatinine, and osmolarity. 5. Abdominal ultrasound. 6. Urine microalbumin to creatinine ratio. 7. Urology consult for possible insertion of Sena catheter. 8. Sodium bicarb. JOB# [id number]
[2017-07-11 04:23] LABS: URINE BILIRUBIN NEGATIVE (NEGATIVE); URINE BLOOD MODERATE (NEGATIVE); URINE GLUCOSE (UA) NEGATIVE (NEGATIVE); URINE KETONE NEGATIVE (NEGATIVE); URINE LEUKOCYTE ESTERASE SMALL (NEGATIVE); URINE NITRATE NEGATIVE (NEGATIVE); URINE PH 5.5 (4.6 - 8.0); URINE PROTEIN TRACE mg/dL (NEGATIVE); URINE UROBILINOGEN 0.2 E.U./dL (0.2 - 1.0)
[2017-07-11 04:30] LABS: URINE CLARITY HAZY (CLEAR); URINE COLOR YELLOW
[2017-07-11 04:31] LABS: URINE BACTERIA MODERATE /hpf (NONE SEEN); URINE EPITHELIAL CELLS FEW /lpf (FEW)
[2017-07-11 04:32] LABS: URINE AMORPHOUS SEDIMENT MODERATE PHOSPHATES (NONE SEEN)
[2017-07-11] MEDS: TAZOBACT IV SCH (05:15)
[2017-07-11] MEDS: PIPERACILLIN SODIUM IV SCH (05:15)
[2017-07-11] MEDS: SODIUM CHLORIDE 0.9% IV SCH (05:15)
[2017-07-11 05:16] LABS: HEMATOCRIT 41.1 % (41.0-60); HEMOGLOBIN 13.5 gm/dL (12-16); MANUAL DIFF REQUIRED? YES; MEAN CELL VOLUME 85.3 fl (80-99); MEAN CORPUSCULAR HEMOGLOBIN 28.1 pg (27.0-31.0); MEAN CORPUSCULAR HGB CONC 32.9 pg (28.0-36.0); MEAN PLATELET VOLUME 9.1 fl; RED BLOOD COUNT 4.82 Mil/cmm (3.80-5.80)
[2017-07-11 05:22] LABS: PLATELET COUNT 69 Th/cmm (150-400); WHITE BLOOD COUNT 29.7 Th/cmm (4.8-10.8)
[2017-07-11 05:32] LABS: ALB/GLOB RATIO 0.7 (1.0-1.8); ALBUMIN 2.4 gm/dL (4.2-5.5); ALKALINE PHOSPHATASE 127 U/L (34-104); BILIRUBIN,TOTAL 0.6 mg/dL (0.3-1.0); BUN - UREA NITROGEN 57 mg/dL (7-25); CALCIUM SERUM 8.5 mg/dL (8.6-10.3); CARBON DIOXIDE 22.7 mEq/L (21.0-31.0); CHLORIDE 125 mEq/L (98-107); CREATININE - SERUM 1.3 mg/dL (0.7-1.3); GLUCOSE 175 mg/dL (70-105); MAGNESIUM 2.1 mg/dL (1.9-2.7); PHOSPHOROUS 2.6 mg/dL (2.5-5.0); SGOT 113 U/L (13-39); SGPT/ALT 101 U/L (7-52); SODIUM SERUM 154 mEq/L (136-145); TOTAL PROTEIN,SERUM 5.7 gm/dL (6.0-8.3)
[2017-07-11 05:58] LABS: POTASSIUM SERUM 2.7 mEq/L (3.5-5.1)
--- NOTE | 2017-07-11 08:24 | Diagnostic Imaging Report ---
Bilateral lower extremity DVT study HISTORY: DVT COMPARISON: None Technique: Longitudinal and transverse sonographic images of the bilateral lower extremity veins were obtained with doppler analysis. FINDINGS: Exam is severely limited due to patient's medical condition and body habitus. The right common femoral and proximal superficial femoral veins were not imaged. The remaining veins of the right lower extremity including the remaining right superficial femoral vein, popliteal vein, posterior tibial vein, and peroneal veins are patent with no evidence of DVT formation. The left side was not able to be imaged due to patient's medical condition. IMPRESSION: Incomplete examination as the left side was not imaged and the right common femoral and proximal superficial veins were also not imaged. No DVT was visualized within the remaining veins of the bilateral lower extremity venous system. Consider repeat examination when clinically feasible.
--- NOTE | 2017-07-11 08:27 | Diagnostic Imaging Report ---
Ultrasound urinary bladder History: Elevated renal function test Comparison: None Technique/procedure: Sonography urinary bladder was performed in multiple planes. Findings: The exam is limited due to patient's medical condition. Echogenic foci are seen along the lower aspect the urinary bladder with urinary bladder wall thickening. Right urinary bladder jet is noted. IMPRESSION: Debris within the urinary bladder with possible clot or other mass lesions. Clinical correlation and follow-up is recommended. Urinary bladder wall thickening with mild irregularity which may be due to chronic infectious inflammatory or less likely neoplastic process. Clinical correlation is recommended.
[2017-07-11 08:38] LABS: BAND NEUTROPHILE 23 % (0-10); LYMPHOCYTE 2 % (20-50); MONOCYTE 2 % (2-10); NEUTROPHILS 73 % (40-80); PLATELET ESTIMATE DECREASED PLATELETS (NORMAL); TOTAL CELLS COUNTED 100
[2017-07-11] MEDS: Levofloxacin 500mg/100mL 500 MG/100 ML BAG IV SCH (08:45)
--- NOTE | 2017-07-11 09:12 | Diagnostic Imaging Report ---
CHEST X-RAY: AP view INDICATION: Pneumonia COMPARISON: 07/10/2017 FINDINGS: Chronic interstitial changes are seen with persistent left basal infiltrate and slight improvement in right basal hazy infiltrate. Bibasal pleural thickening is noted. Heart size is normal. IMPRESSION: Persistent left basal hazy infiltrate and overall slight improvement in right basal hazy infiltrate.
[2017-07-11] MEDS ORDERED: Magnesium Hydroxide (MOM) 30 mL UDC PO PRN (09:13)
--- NOTE | 2017-07-11 10:02 | Diagnostic Imaging Report ---
Ultrasound abdomen HISTORY: Liver failure COMPARISON: The chest performed on 07/10/2016 Technique: Sonography of the abdomen was performed in multiple planes. FINDINGS: Exam is limited due to patient's medical condition. The visualized portions of the pancreas are unremarkable. The visualized portions of the abdominal aorta within normal limits in size. Atherosclerosis is noted. The liver demonstrates normal echogenicity and measures 17.4 cm. No evidence of focal lesions. Distended gallbladder is noted. No evidence of gallstones. The gallbladder wall measures 3 mm. No pericholecystic fluid. The common bile duct measures 8 mm. The right kidney measures 10.5 x 4.4 cm. The left kidney measures 10.7 x 4.8 cm. The renal margins are not well-defined, however, no obvious focal lesions or evidence of hydronephrosis. There is increased echogenicity of both kidneys. The spleen measures 11.9 cm. IMPRESSION: Borderline hepatomegaly. No focal abnormalities identified. Distended gallbladder borderline prominence of the gallbladder wall. No gallstones identified. Please correlate with clinical findings. Common bile duct at the upper limits of normal for patient's age measuring 8 mm. Increased echogenicity kidneys which may be due to underlying medical renal disease. Atherosclerotic vascular disease.
[2017-07-11] MEDS: KCL 20mEq/100mL Premix 20 MEQ/100 ML PIGGYBACK IV SCH ×2 (10:30→12:25)
[2017-07-11 10:35] LABS: URINE MICROSCOPIC INDICATED? YES; URINE SOURCE FOLEY PORT
[2017-07-11 10:38] LABS: URINE BILIRUBIN NEGATIVE (NEGATIVE); URINE BLOOD SMALL (NEGATIVE); URINE GLUCOSE (UA) NEGATIVE (NEGATIVE); URINE KETONE NEGATIVE (NEGATIVE); URINE LEUKOCYTE ESTERASE TRACE (NEGATIVE); URINE NITRATE NEGATIVE (NEGATIVE); URINE PH 5.5 (4.6 - 8.0); URINE PROTEIN TRACE mg/dL (NEGATIVE); URINE UROBILINOGEN 0.2 E.U./dL (0.2 - 1.0)
[2017-07-11 10:42] LABS: URINE CLARITY HAZY (CLEAR); URINE COLOR YELLOW
[2017-07-11 11:10] LABS: URINE BACTERIA FEW /hpf (NONE SEEN); URINE EPITHELIAL CELLS FEW /lpf (FEW); URINE RBC 0-2 /hpf (0-5)
[2017-07-11 11:34] LABS: EOSINOPHIL SMEAR SOURCE URINE; EOSINOPHILS SMEAR COUNT NONE SEEN (NONE SEEN)
[2017-07-11] MEDS: metroNIDAZOLE 500mg/NS 100mL 500 MG/100 ML BAG IV SCH ×2 (12:26→20:42)
[2017-07-11] MEDS: Polyvinyl Alcohol Ophth Soln 15 mL Bottle EACH EYE SCH (12:54)
--- NOTE | 2017-07-11 13:51 | Infectious Disease Prog Note ---
Infectious Disease Subjective - Review of Systems Service Date: 07/11/17 Subjective: There is no new change, no fever. more alert today. communicating now. Infectious Disease Objective - Results Result Diagrams: 07/11/17 04:20 07/11/17 04:20 Recent Labs: Laboratory Last Values WBC 29.7 Th/cmm (4.8-10.8) H* D 07/11/17 04:20 RBC 4.82 Mil/cmm (3.80-5.80) 07/11/17 04:20 Hgb 13.5 gm/dL (12-16) 07/11/17 04:20 Hct 41.1 % (41.0-60) 07/11/17 04:20 MCV 85.3 fl (80-99) 07/11/17 04:20 MCH 28.1 pg (27.0-31.0) 07/11/17 04:20 MCHC Differential 32.9 pg (28.0-36.0) 07/11/17 04:20 RDW 15.0 % (11.5-20.0) 07/11/17 04:20 Plt Count 69 Th/cmm (150-400) L D 07/11/17 04:20 MPV 9.1 fl 07/11/17 04:20 Neutrophils % 97.3 % (40.0-80.0) H 07/10/17 04:10 Band Neutrophils % 23 % (0-10) H 07/11/17 04:20 Lymphocytes % 1.6 % (20.0-50.0) L 07/10/17 04:10 Monocytes % 1.0 % (2.0-10.0) L 07/10/17 04:10 Neutrophils (Manual) 73 % (40-80) 07/11/17 04:20 Lymphocytes 2 % (20-50) L 07/11/17 04:20 Monocytes 2 % (2-10) 07/11/17 04:20 Platelet Estimate DECREASED PLATELETS (NORMAL) 07/11/17 04:20 Eos Smear Source URINE 07/11/17 07:45 Eos Smear Total Cells NONE SEEN (NONE SEEN) 07/11/17 07:45 PT 12.8 SECONDS (9.5-11.5) H 07/10/17 10:30 INR 1.22 (0.5-1.4) 07/10/17 10:30 PTT (Actin FS) 39.5 SECONDS (26.0-38.0) H 07/11/17 08:35 D-Dimer 4700 ng/mL (100-400) H 07/10/17 04:10 Specimen Source arterial 07/10/17 00:06 Sample Site rr 07/10/17 00:06 pH 7.48 (7.35-7.45) H 07/10/17 00:06 pCO2 23.0 mmHg (35.0-45.0) L* 07/10/17 00:06 pO2 88.0 mmHg (80.0-100.0) 07/10/17 00:06 HCO3 21.3 mEq/L (20.0-26.0) 07/10/17 00:06 Base Excess -4.7 mEq/L (-3.0-3.0) L 07/10/17 00:06 O2 Saturation 97.0 % (92.0-100.0) 07/10/17 00:06 Timothy Test positive 07/10/17 00:06 Vent Rate n/a 07/10/17 00:06 Inspired O2 100% 07/10/17 00:06 Tidal Volume n/a 07/10/17 00:06 PEEP N/A 07/10/17 00:06 Pressure (ins/psv/peep) N/A 07/10/17 00:06 Critical Value ABROEDEL 07/10/17 00:06 Sodium 154 mEq/L (136-145) H 07/11/17 04:20 Potassium 2.7 mEq/L (3.5-5.1) L* 07/11/17 04:20 Chloride 125 mEq/L (98-107) H 07/11/17 04:20 Carbon Dioxide 22.7 mEq/L (21.0-31.0) 07/11/17 04:20 Anion Gap 9.0 (7.0-16.0) 07/11/17 04:20 BUN 57 mg/dL (7-25) H 07/11/17 04:20 Creatinine 1.3 mg/dL (0.7-1.3) 07/11/17 04:20 Est GFR ( Amer) TNP 07/11/17 04:20 Est GFR (Non-Af Amer) TNP 07/11/17 04:20 BUN/Creatinine Ratio 43.8 07/11/17 04:20 Glucose 175 mg/dL (70-105) H 07/11/17 04:20 Whole Bld Lactic Acid 1.75 mmol/L (0.60-1.99) 07/11/17 04:20 Uric Acid 6.0 mg/dL (4.4-7.6) 07/11/17 04:20 Calcium 8.5 mg/dL (8.6-10.3) L 07/11/17 04:20 Phosphorus 2.6 mg/dL (2.5-5.0) 07/11/17 04:20 Magnesium 2.0 mg/dL (1.9-2.7) 07/11/17 04:20 Total Bilirubin 0.6 mg/dL (0.3-1.0) 07/11/17 04:20 AST 113 U/L (13-39) H 07/11/17 04:20 ALT 101 U/L (7-52) H 07/11/17 04:20 Alkaline Phosphatase 127 U/L (34-104) H 07/11/17 04:20 Troponin I 0.03 ng/mL (0.01-0.05) 07/09/17 19:48 B-Natriuretic Peptide < 5.0 pg/mL (5.0-100.0) L 07/10/17 04:10 Total Protein 5.7 gm/dL (6.0-8.3) L 07/11/17 04:20 Albumin 2.4 gm/dL (4.2-5.5) L 07/11/17 04:20 Globulin 3.3 gm/dL 07/11/17 04:20 Albumin/Globulin Ratio 0.7 (1.0-1.8) L 07/11/17 04:20 Triglycerides 120 mg/dL (<150) 07/10/17 04:10 Cholesterol 48 mg/dL (<200) 07/10/17 04:10 LDL Cholesterol Direct 13 mg/dL (75-193) L 07/10/17 04:10 HDL Cholesterol 18 mg/dL (23-92) L 07/10/17 04:10 TSH 2.64 uIU/ml (0.34-5.60) 07/10/17 04:10 Urine Source ANSARI PORT 07/11/17 07:45 Urine Color YELLOW 07/11/17 07:45 Urine Clarity HAZY (CLEAR) 07/11/17 07:45 Urine pH 5.5 (4.6 - 8.0) 07/11/17 07:45 Ur Specific [place] 1.010 (1.005-1.030) 07/11/17 07:45 Urine Protein TRACE mg/dL (NEGATIVE) 07/11/17 07:45 Urine Glucose (UA) NEGATIVE mg/dL (NEGATIVE) 07/11/17 07:45 Urine Ketones NEGATIVE mg/dL (NEGATIVE) 07/11/17 07:45 Urine Blood SMALL (NEGATIVE) H 07/11/17 07:45 Urine Nitrate NEGATIVE (NEGATIVE) 07/11/17 07:45 Urine Bilirubin NEGATIVE (NEGATIVE) 07/11/17 07:45 Urine Urobilinogen 0.2 E.U./dL (0.2 - 1.0) 07/11/17 07:45 Ur Leukocyte Esterase TRACE (NEGATIVE) H 07/11/17 07:45 Urine RBC 0-2 /hpf (0-5) H 07/11/17 07:45 Urine WBC 2-5 /hpf (0-5) 07/11/17 07:45 Ur Epithelial Cells FEW /lpf (FEW) 07/11/17 07:45 Amorphous Sediment MODERATE PHOSPHATES (NONE SEEN) 07/11/17 02:35 Urine Bacteria FEW /hpf (NONE SEEN) 07/11/17 07:45 Fine Granular Casts 5-10 /lpf (NONE SEEN) H 07/11/17 02:35 Ur Random Sodium 88 mmol/L 07/11/17 07:45 Urine Creatinine 34.0 mg/dl (39.0-259.0) L 07/11/17 07:45 - Physical Exam Vitals and I&O: Vital Signs Temp 98.5 F 07/11/17 12:00 Pulse 87 07/11/17 12:45 Resp 18 07/11/17 12:15 BP 94/65 07/11/17 12:45 Pulse Ox 99 07/11/17 12:15 Intake & Output 07/10/17 07/11/17 07/11/17 18:59 06:59 18:59 Intake Total 2811.65 558.00 449.833 Output Total 2320 Balance 2811.65 -1762.00 449.833 Weight (lbs) 50.037 kg Intake: Intake, IV Amount 2811.65 558.00 449.833 D5-0.9%Ns 1,000 ml @ 125 1375 mls/hr IV .Q8H [facility] Rx#: [id number] Heparin 25,000 Units In 72.25 D5W 25,000 units In 250 ml @ 0 UNITS/HR IV TITR PRN Rx#:[id number] KCL 20mEq/100mL Premix 20 95.833 meq In 100 ml @ 50 mls/ hr IV Q2H [facility] Rx#: [id number] Levofloxacin 500mg/100mL 100 500 mg In 100 ml @ 100 mls/hr IV Q24HR [facility] Rx#: [id number] Norepinephrine 4 mg In 787.4 508.00 254 Dextrose 5% 250 ml @ 8 MCG/MIN 30.48 mls/hr IV TITR PRN Rx#:[id number] Piperacillin Sodium/ 50 Tazobact 4.57 gm In Sodium Chloride 0.9% 50 ml @ 100 mls/hr IV Q8HR [facility] Rx#:[id number] Potassium Chloride 40 meq 277 Lidocaine 1% 20mL Vial 70 mg In Sodium Chloride 0.9% 250 ml @ 68 mls/hr IV X1 [facility] Rx#:[id number] Vancomycin HCl 1 gm In 250 Sodium Chloride 0.9% 250 ml @ 165 mls/hr IV Q24H [facility] Rx#:[id number] Output: Urine 2320 Other: # Bowel Movements 1 Active Medications: Current Medications Acetaminophen (Tylenol) 650 mg PO Q6HR PRN PRN Reason: Pain or Fever >101 Stop: 09/09/17 09:12 Albuterol/Ipratropium (Duoneb Neb) 3 ml HHN Q4HRT [facility] Stop: 09/08/17 14:59 Last Admin: 07/11/17 12:15 Dose: 3 ml Artificial Tears (Artificial Tears Ophth Soln) 1 drop EACH EYE DAILY [facility] Stop: 09/09/17 10:59 Last Admin: 07/11/17 12:54 Dose: 1 drop Atorvastatin Calcium (Lipitor) 20 mg PO HS [facility] Stop: 09/09/17 20:59 Norepinephrine Bitartrate 4 mg (/ Dextrose) 254 mls @ 30.48 mls/hr IV TITR PRN ; Protocol; 8 MCG/MIN PRN Reason: BP MAINTENANCE (PER PROTOCOL) Stop: 09/08/17 02:02 Last Admin: 07/11/17 12:28 Dose: 7 mcg/min, 26.67 mls/hr Heparin Sodium/Dextrose (Heparin Drip) 25,000 units in 250 mls @ 0 mls/hr IV TITR PRN; Protocol; 0 UNITS/HR PRN Reason: PROTOCOL Stop: 09/08/17 02:36 Last Titration: 07/10/17 14:30 Dose: 0 units/hr, 0 mls/hr Vancomycin HCl 1 gm/ Sodium (Chloride) 250 mls @ 165 mls/hr IV Q24H [facility] Stop: 09/08/17 11:29 Last Admin: 07/11/17 10:50 Dose: 165 mls/hr Levofloxacin (Levaquin Pb) 500 mg in 100 mls @ 100 mls/hr IV Q24HR [facility] Stop: 09/09/17 07:59 Last Infusion: 07/11/17 09:45 Dose: Infused Piperacillin Sod/Tazobactam (Sod 4.5 gm/ Sodium Chloride) 50 mls @ 100 mls/hr IV Q8HR [facility] Stop: 09/08/17 17:37 Last Admin: 07/11/17 12:10 Dose: 100 mls/hr Potassium Chloride (Potassium Chloride) 20 meq in 100 mls @ 50 mls/hr IV Q2H [facility] Stop: 07/11/17 13:59 Last Admin: 07/11/17 12:25 Dose: 50 mls/hr Potassium Chloride 10 meq/ (Dextrose) 1,005 mls @ 125 mls/hr IV .Q8H3M [facility] Stop: 09/09/17 09:14 Last Admin: 07/11/17 10:00 Dose: 125 mls/hr Metronidazole (Flagyl) 500 mg in 100 mls @ 100 mls/hr IV Q8HR [facility] Stop: 09/09/17 12:59 Last Admin: 07/11/17 12:26 Dose: 100 mls/hr Levetiracetam (Keppra) 750 mg PO Q12HR [facility] Stop: 09/09/17 09:59 Last Admin: 07/11/17 10:00 Dose: Not Given Magnesium Hydroxide (Milk Of Magnesia) 30 ml PO HS PRN PRN Reason: Constipation Stop: 09/09/17 09:12 Mirtazapine (Remeron) 7.5 mg PO HS [facility] Stop: 09/09/17 20:59 Pantoprazole Sodium (Protonix) 40 mg IVP DAILY [facility] Stop: 09/09/17 09:59 Last Admin: 07/11/17 12:54 Dose: 40 mg Sertraline HCl (Zoloft) 25 mg PO DAILY [facility] PRN Reason: Protocol Stop: 09/09/17 09:14 Sucralfate (Carafate) 1 gm PO ACHS [facility] Stop: 09/09/17 11:29 Last Admin: 07/11/17 11:10 Dose: Not Given General: no acute distress, well developed, well nourished HEENT: atraumatic, normocephalic, PERRLA, EOMI Neck: supple, no thyromegaly Cardiovascular: S1S2, regular Lungs: clear to auscultation bilaterally, clear to percussion Abdomen: soft, no tender, no distended, no rebound Extremities: no cyanosis, no clubbing, no edema Neurological: awake, alert, other (confused. Communicates well.) Skin: intact Infectious Disease Assmt/Plan - Assessment Assessment: 1. Severe septic shock with multiorgan failure. Improving. although WBC count went very high, will check CBC again. 2. Pneumonia, likely aspiration pneumonia versus atypical pneumonia. 3. Cerebrovascular accident. 4. Respiratory insufficiency. 5. Hepatitis. 6. Benign prostatic hypertrophy. 7. Acute renal failure, acute kidney injury. 8. Lactic acidosis. 9. History of hypertension. 10. History of chronic disease. 11. History of seizure disorder. 12. Sacral decubitus ulcer. - Plan Plan: Will continue zosyn and levaquin.
--- NOTE | 2017-07-11 14:38 | General Progress Note ---
Subjective - Review of Systems Service Date: 07/11/17 Subjective: more alert, verbal today, comfortable Objective - Results Result Diagrams: 07/11/17 04:20 07/11/17 04:20 Recent Labs: Laboratory Last Values WBC 29.7 Th/cmm (4.8-10.8) H* D 07/11/17 04:20 RBC 4.82 Mil/cmm (3.80-5.80) 07/11/17 04:20 Hgb 13.5 gm/dL (12-16) 07/11/17 04:20 Hct 41.1 % (41.0-60) 07/11/17 04:20 MCV 85.3 fl (80-99) 07/11/17 04:20 MCH 28.1 pg (27.0-31.0) 07/11/17 04:20 MCHC Differential 32.9 pg (28.0-36.0) 07/11/17 04:20 RDW 15.0 % (11.5-20.0) 07/11/17 04:20 Plt Count 69 Th/cmm (150-400) L D 07/11/17 04:20 MPV 9.1 fl 07/11/17 04:20 Neutrophils % 97.3 % (40.0-80.0) H 07/10/17 04:10 Band Neutrophils % 23 % (0-10) H 07/11/17 04:20 Lymphocytes % 1.6 % (20.0-50.0) L 07/10/17 04:10 Monocytes % 1.0 % (2.0-10.0) L 07/10/17 04:10 Neutrophils (Manual) 73 % (40-80) 07/11/17 04:20 Lymphocytes 2 % (20-50) L 07/11/17 04:20 Monocytes 2 % (2-10) 07/11/17 04:20 Platelet Estimate DECREASED PLATELETS (NORMAL) 07/11/17 04:20 Eos Smear Source URINE 07/11/17 07:45 Eos Smear Total Cells NONE SEEN (NONE SEEN) 07/11/17 07:45 PT 12.8 SECONDS (9.5-11.5) H 07/10/17 10:30 INR 1.22 (0.5-1.4) 07/10/17 10:30 PTT (Actin FS) 39.5 SECONDS (26.0-38.0) H 07/11/17 08:35 D-Dimer 4700 ng/mL (100-400) H 07/10/17 04:10 Specimen Source arterial 07/10/17 00:06 Sample Site rr 07/10/17 00:06 pH 7.48 (7.35-7.45) H 07/10/17 00:06 pCO2 23.0 mmHg (35.0-45.0) L* 07/10/17 00:06 pO2 88.0 mmHg (80.0-100.0) 07/10/17 00:06 HCO3 21.3 mEq/L (20.0-26.0) 07/10/17 00:06 Base Excess -4.7 mEq/L (-3.0-3.0) L 07/10/17 00:06 O2 Saturation 97.0 % (92.0-100.0) 07/10/17 00:06 Timothy Test positive 07/10/17 00:06 Vent Rate n/a 07/10/17 00:06 Inspired O2 100% 07/10/17 00:06 Tidal Volume n/a 07/10/17 00:06 PEEP N/A 07/10/17 00:06 Pressure (ins/psv/peep) N/A 07/10/17 00:06 Critical Value ABROEDEL 07/10/17 00:06 Sodium 154 mEq/L (136-145) H 07/11/17 04:20 Potassium 2.7 mEq/L (3.5-5.1) L* 07/11/17 04:20 Chloride 125 mEq/L (98-107) H 07/11/17 04:20 Carbon Dioxide 22.7 mEq/L (21.0-31.0) 07/11/17 04:20 Anion Gap 9.0 (7.0-16.0) 07/11/17 04:20 BUN 57 mg/dL (7-25) H 07/11/17 04:20 Creatinine 1.3 mg/dL (0.7-1.3) 07/11/17 04:20 Est GFR ( Amer) TNP 07/11/17 04:20 Est GFR (Non-Af Amer) TNP 07/11/17 04:20 BUN/Creatinine Ratio 43.8 07/11/17 04:20 Glucose 175 mg/dL (70-105) H 07/11/17 04:20 Whole Bld Lactic Acid 1.75 mmol/L (0.60-1.99) 07/11/17 04:20 Uric Acid 6.0 mg/dL (4.4-7.6) 07/11/17 04:20 Calcium 8.5 mg/dL (8.6-10.3) L 07/11/17 04:20 Phosphorus 2.6 mg/dL (2.5-5.0) 07/11/17 04:20 Magnesium 2.0 mg/dL (1.9-2.7) 07/11/17 04:20 Total Bilirubin 0.6 mg/dL (0.3-1.0) 07/11/17 04:20 AST 113 U/L (13-39) H 07/11/17 04:20 ALT 101 U/L (7-52) H 07/11/17 04:20 Alkaline Phosphatase 127 U/L (34-104) H 07/11/17 04:20 Troponin I 0.03 ng/mL (0.01-0.05) 07/09/17 19:48 B-Natriuretic Peptide < 5.0 pg/mL (5.0-100.0) L 07/10/17 04:10 Total Protein 5.7 gm/dL (6.0-8.3) L 07/11/17 04:20 Albumin 2.4 gm/dL (4.2-5.5) L 07/11/17 04:20 Globulin 3.3 gm/dL 07/11/17 04:20 Albumin/Globulin Ratio 0.7 (1.0-1.8) L 07/11/17 04:20 Triglycerides 120 mg/dL (<150) 07/10/17 04:10 Cholesterol 48 mg/dL (<200) 07/10/17 04:10 LDL Cholesterol Direct 13 mg/dL (75-193) L 07/10/17 04:10 HDL Cholesterol 18 mg/dL (23-92) L 07/10/17 04:10 TSH 2.64 uIU/ml (0.34-5.60) 07/10/17 04:10 Urine Source ANSARI PORT 07/11/17 07:45 Urine Color YELLOW 07/11/17 07:45 Urine Clarity HAZY (CLEAR) 07/11/17 07:45 Urine pH 5.5 (4.6 - 8.0) 07/11/17 07:45 Ur Specific [place] 1.010 (1.005-1.030) 07/11/17 07:45 Urine Protein TRACE mg/dL (NEGATIVE) 07/11/17 07:45 Urine Glucose (UA) NEGATIVE mg/dL (NEGATIVE) 07/11/17 07:45 Urine Ketones NEGATIVE mg/dL (NEGATIVE) 07/11/17 07:45 Urine Blood SMALL (NEGATIVE) H 07/11/17 07:45 Urine Nitrate NEGATIVE (NEGATIVE) 07/11/17 07:45 Urine Bilirubin NEGATIVE (NEGATIVE) 07/11/17 07:45 Urine Urobilinogen 0.2 E.U./dL (0.2 - 1.0) 07/11/17 07:45 Ur Leukocyte Esterase TRACE (NEGATIVE) H 07/11/17 07:45 Urine RBC 0-2 /hpf (0-5) H 07/11/17 07:45 Urine WBC 2-5 /hpf (0-5) 07/11/17 07:45 Ur Epithelial Cells FEW /lpf (FEW) 07/11/17 07:45 Amorphous Sediment MODERATE PHOSPHATES (NONE SEEN) 07/11/17 02:35 Urine Bacteria FEW /hpf (NONE SEEN) 07/11/17 07:45 Fine Granular Casts 5-10 /lpf (NONE SEEN) H 07/11/17 02:35 Ur Random Sodium 88 mmol/L 07/11/17 07:45 Urine Creatinine 34.0 mg/dl (39.0-259.0) L 07/11/17 07:45 - Physical Exam Vitals and I&O: Vital Signs Temp 98.5 F 07/11/17 14:00 Pulse 81 07/11/17 14:15 Resp 13 07/11/17 14:00 BP 91/54 07/11/17 14:15 Pulse Ox 98 07/11/17 14:00 Intake & Output 07/10/17 07/11/17 07/11/17 18:59 06:59 18:59 Intake Total 2811.65 558.00 849.833 Output Total 2320 Balance 2811.65 -1762.00 849.833 Weight (lbs) 50.037 kg Intake: Intake, IV Amount 2811.65 558.00 849.833 D5-0.9%Ns 1,000 ml @ 125 1375 mls/hr IV .Q8H [facility] Rx#: [id number] Heparin 25,000 Units In 72.25 D5W 25,000 units In 250 ml @ 0 UNITS/HR IV TITR PRN Rx#:[id number] KCL 20mEq/100mL Premix 20 95.833 meq In 100 ml @ 50 mls/ hr IV Q2H [facility] Rx#: [id number] Levofloxacin 500mg/100mL 100 500 mg In 100 ml @ 100 mls/hr IV Q24HR [facility] Rx#: [id number] Norepinephrine 4 mg In 787.4 508.00 254 Dextrose 5% 250 ml @ 8 MCG/MIN 30.48 mls/hr IV TITR PRN Rx#:[id number] Piperacillin Sodium/ 50 Tazobact 4.5 gm In Sodium Chloride 0.9% 50 ml @ 100 mls/hr IV Q8HR [facility] Rx #:[id number] Piperacillin Sodium/ 50 Tazobact 4.57 gm In Sodium Chloride 0.9% 50 ml @ 100 mls/hr IV Q8HR [facility] Rx#:[id number] Potassium Chloride 40 meq 277 Lidocaine 1% 20mL Vial 70 mg In Sodium Chloride 0.9% 250 ml @ 68 mls/hr IV X1 [facility] Rx#:[id number] Vancomycin HCl 1 gm In 250 250 Sodium Chloride 0.9% 250 ml @ 165 mls/hr IV Q24H [facility] Rx#:[id number] metroNIDAZOLE 500mg/NS 100 100mL 500 mg In 100 ml @ 100 mls/hr IV Q8HR [facility] Rx #:[id number] Output: Urine 2320 Other: # Bowel Movements 1 Active Medications: Current Medications Acetaminophen (Tylenol) 650 mg PO Q6HR PRN PRN Reason: Pain or Fever >101 Stop: 09/09/17 09:12 Albuterol/Ipratropium (Duoneb Neb) 3 ml HHN Q4HRT [facility] Stop: 09/08/17 14:59 Last Admin: 07/11/17 12:15 Dose: 3 ml Artificial Tears (Artificial Tears Ophth Soln) 1 drop EACH EYE DAILY [facility] Stop: 09/09/17 10:59 Last Admin: 07/11/17 12:54 Dose: 1 drop Atorvastatin Calcium (Lipitor) 20 mg PO HS [facility] Stop: 09/09/17 20:59 Norepinephrine Bitartrate 4 mg (/ Dextrose) 254 mls @ 30.48 mls/hr IV TITR PRN ; Protocol; 8 MCG/MIN PRN Reason: BP MAINTENANCE (PER PROTOCOL) Stop: 09/08/17 02:02 Last Admin: 07/11/17 12:28 Dose: 7 mcg/min, 26.67 mls/hr Heparin Sodium/Dextrose (Heparin Drip) 25,000 units in 250 mls @ 0 mls/hr IV TITR PRN; Protocol; 0 UNITS/HR PRN Reason: PROTOCOL Stop: 09/08/17 02:36 Last Titration: 07/10/17 14:30 Dose: 0 units/hr, 0 mls/hr Vancomycin HCl 1 gm/ Sodium (Chloride) 250 mls @ 165 mls/hr IV Q24H [facility] Stop: 09/08/17 11:29 Last Infusion: 07/11/17 12:25 Dose: Infused Levofloxacin (Levaquin Pb) 500 mg in 100 mls @ 100 mls/hr IV Q24HR [facility] Stop: 09/09/17 07:59 Last Infusion: 07/11/17 09:45 Dose: Infused Piperacillin Sod/Tazobactam (Sod 4.5 gm/ Sodium Chloride) 50 mls @ 100 mls/hr IV Q8HR [facility] Stop: 09/08/17 17:37 Last Infusion: 07/11/17 12:40 Dose: Infused Potassium Chloride 10 meq/ (Dextrose) 1,005 mls @ 125 mls/hr IV .Q8H3M [facility] Stop: 09/09/17 09:14 Last Admin: 07/11/17 10:00 Dose: 125 mls/hr Metronidazole (Flagyl) 500 mg in 100 mls @ 100 mls/hr IV Q8HR [facility] Stop: 09/09/17 12:59 Last Infusion: 07/11/17 13:30 Dose: Infused Levetiracetam (Keppra) 750 mg PO Q12HR [facility] Stop: 09/09/17 09:59 Last Admin: 07/11/17 10:00 Dose: Not Given Magnesium Hydroxide (Milk Of Magnesia) 30 ml PO HS PRN PRN Reason: Constipation Stop: 09/09/17 09:12 Mirtazapine (Remeron) 7.5 mg PO HS [facility] Stop: 09/09/17 20:59 Pantoprazole Sodium (Protonix) 40 mg IVP DAILY [facility] Stop: 09/09/17 09:59 Last Admin: 07/11/17 12:54 Dose: 40 mg Sertraline HCl (Zoloft) 25 mg PO DAILY [facility] PRN Reason: Protocol Stop: 09/09/17 09:14 Sucralfate (Carafate) 1 gm PO ACHS [facility] Stop: 09/09/17 11:29 Last Admin: 07/11/17 11:10 Dose: Not Given General: Alert, Mild distress HEENT: Atraumatic, EOMI Neck: Supple, +2 carotid pulse wo bruit Cardiovascular: Regular rate, Normal S1, Normal S2 Lungs: Other (scattered rhonchi) Abdomen: Bowel sounds, Soft Extremities: no Edema Neurological: Sensation intact Skin: no Rash Psych/Mental Status: Mood NL Assessment/Plan - Assessment Assessment: CRHISTIAN S/P CVA Left Hemiparesis CAD Shock 2/2 Sepsis Sepsis: HAP Severe Malnutrition Severe Contractures - Plan Plan: Lab - Result Diagrams 07/11/17 04:20 07/11/17 04:20 Current Medications Acetaminophen (Tylenol) 650 mg PO Q6HR PRN PRN Reason: Pain or Fever >101 Stop: 09/09/17 09:12 Albuterol/Ipratropium (Duoneb Neb) 3 ml HHN Q4HRT [facility] Stop: 09/08/17 14:59 Last Admin: 07/11/17 12:15 Dose: 3 ml Artificial Tears (Artificial Tears Ophth Soln) 1 drop EACH EYE DAILY [facility] Stop: 09/09/17 10:59 Last Admin: 07/11/17 12:54 Dose: 1 drop Atorvastatin Calcium (Lipitor) 20 mg PO HS [facility] Stop: 09/09/17 20:59 Norepinephrine Bitartrate 4 mg (/ Dextrose) 254 mls @ 30.48 mls/hr IV TITR PRN ; Protocol; 8 MCG/MIN PRN Reason: BP MAINTENANCE (PER PROTOCOL) Stop: 09/08/17 02:02 Last Admin: 07/11/17 12:28 Dose: 7 mcg/min, 26.67 mls/hr Heparin Sodium/Dextrose (Heparin Drip) 25,000 units in 250 mls @ 0 mls/hr IV TITR PRN; Protocol; 0 UNITS/HR PRN Reason: PROTOCOL Stop: 09/08/17 02:36 Last Titration: 07/10/17 14:30 Dose: 0 units/hr, 0 mls/hr Vancomycin HCl 1 gm/ Sodium (Chloride) 250 mls @ 165 mls/hr IV Q24H [facility] Stop: 09/08/17 11:29 Last Infusion: 07/11/17 12:25 Dose: Infused Levofloxacin (Levaquin Pb) 500 mg in 100 mls @ 100 mls/hr IV Q24HR [facility] Stop: 09/09/17 07:59 Last Infusion: 07/11/17 09:45 Dose: Infused Piperacillin Sod/Tazobactam (Sod 4.5 gm/ Sodium Chloride) 50 mls @ 100 mls/hr IV Q8HR [facility] Stop: 09/08/17 17:37 Last Infusion: 07/11/17 12:40 Dose: Infused Potassium Chloride 10 meq/ (Dextrose) 1,005 mls @ 125 mls/hr IV .Q8H3M [facility] Stop: 09/09/17 09:14 Last Admin: 07/11/17 10:00 Dose: 125 mls/hr Metronidazole (Flagyl) 500 mg in 100 mls @ 100 mls/hr IV Q8HR [facility] Stop: 09/09/17 12:59 Last Infusion: 07/11/17 13:30 Dose: Infused Levetiracetam (Keppra) 750 mg PO Q12HR [facility] Stop: 09/09/17 09:59 Last Admin: 07/11/17 10:00 Dose: Not Given Magnesium Hydroxide (Milk Of Magnesia) 30 ml PO HS PRN PRN Reason: Constipation Stop: 09/09/17 09:12 Mirtazapine (Remeron) 7.5 mg PO HS [facility] Stop: 09/09/17 20:59 Pantoprazole Sodium (Protonix) 40 mg IVP DAILY [facility] Stop: 09/09/17 09:59 Last Admin: 07/11/17 12:54 Dose: 40 mg Sertraline HCl (Zoloft) 25 mg PO DAILY [facility] PRN Reason: Protocol Stop: 09/09/17 09:14 Sucralfate (Carafate) 1 gm PO ACHS [facility] Stop: 09/09/17 11:29 Last Admin: 03/05/18 11:10 Dose: Not Given Lab - Result Diagrams 07/11/17 04:20 07/11/17 04:20 Kidney fnc improved w/ BUN/CR of 57/1.3 replace K continue hydration sudden rise in WBC? on Levo 10 meq CXR still w/ b/l infiltrates continue ABx
[2017-07-11 15:05] LABS: HEMATOCRIT 38.2 % (41.0-60); HEMOGLOBIN 12.6 gm/dL (12-16); MANUAL DIFF REQUIRED? YES; MEAN CORPUSCULAR HEMOGLOBIN 28.1 pg (27.0-31.0); MEAN CORPUSCULAR HGB CONC 33.1 pg (28.0-36.0); MEAN PLATELET VOLUME 8.8 fl; RED CELL DISTRIBUTION WIDTH 15.4 % (11.5-20.0)
[2017-07-11 15:42] LABS: PLATELET COUNT 53 Th/cmm (150-400); WHITE BLOOD COUNT 22.2 Th/cmm (4.8-10.8)
[2017-07-11 16:02] LABS: BAND NEUTROPHILE 15 % (0-10); BASOPHIL 0 % (0-3); EOSINOPHIL 0 % (0-5); LYMPHOCYTE 2 % (20-50); MONOCYTE 2 % (2-10); NEUTROPHILS 81 % (40-80); TOTAL CELLS COUNTED 100
--- NOTE | 2017-07-11 17:55 | Consultation ---
DATE OF CONSULTATION: 07/10/[address] Castaneda. Thank you very much for this consultation. HISTORY OF PRESENT ILLNESS: This is a 72-year-old male, nursing facility, presented with shortness of breath, congestion, and hypoxemia. The patient has a history of CVA, left-sided hemiplegia, and has a history of seizure disorders. Part of his labs was an elevated D-dimer, he was placed on heparin, and a venous Doppler was not diagnostic. A CT chest shows multi-infiltrates in the lungs and the patient was admitted for treatment and management. The patient is unable to give any history. REVIEW OF SYSTEMS: Unable to obtain because of the patient's condition. PHYSICAL EXAMINATION: GENERAL: The patient is arousable, in some distress, shortness of breath. VITAL SIGNS: Temperature is 99.8, pulse is 112, respirations are 18, blood pressure is 111/68, and saturation is 98% on Ventimask 50%. HEENT: Atraumatic and normocephalic. Pupils are reactive to light and accommodation. Ears, nose and throat are normal. NECK: Supple. No JVD. CHEST: Diffuse rhonchi bilaterally. HEART: Regular rate and rhythm. ABDOMEN: Soft. EXTREMITIES: No edema. LABORATORY DATA: WBC 6.0, hemoglobin 14.3, hematocrit 43.6, platelets 100. D-dimer is 4700. ABGs; pH 7.48, pCO2 23, pO2 80, bicarb 21, saturation is ____%. Sodium is ____, potassium 3.8, BUN 85, creatinine 1.7. Elevated SGOT and SGPT. IMPRESSION: 1. This is a 72-year-old male with respiratory failure. 2. Sepsis. 3. Pneumonia, doubt pulmonary embolism, most likely hypoxemia secondary to aspiration pneumonia. PLAN: 1. Agree with antibiotics. 2. Zosyn and vancomycin. 3. Nebulizer treatment. 4. Oxygen supplementation. 5. Discontinue the heparin and order a V/Q scan. We will follow the patient with you. Thank you very much for this consultation. JOB# [id number]
[2017-07-11] MEDS: Atorvastatin Calcium 10 MG TAB PO SCH (20:47)
--- NOTE | 2017-07-11 23:16 | Progress Notes ---
DATE: UROLOGY PROGRESS NOTE SUBJECTIVE: The patient has steadily improved after I saw him yesterday and the Sena was placed. He has put out about 500 mL in the last 12 hours and has become more awake and alert even as far as sleeping pill and is tolerating a mechanical diet. OBJECTIVE: VITAL SIGNS: On exam, temperature 98.5, heart rate 87, blood pressure 115/69, although he still requires 10 mcg of Levophed and has not been able to wean off. He has remained afebrile for more than 24 hours. ABDOMEN: Soft, nondistended and nontender. Sena catheter, no blood. CARDIOVASCULAR: Heart sounds, sinus rhythm, no murmur. EXTREMITIES: No edema. LABORATORY DATA: White count 22.2, improved from 29.7; hemoglobin 12.6; platelets continues to be low at 53. Sodium 154, potassium 2.7, chloride 125, BUN 57, creatinine 1.3. Liver functions also abnormal and enzymes are elevated. Bilirubin is normal. Urinalysis obtained from the Sena is completely normal. Blood cultures have been negative so far. IMPRESSION: 1. Urinary retention versus incontinence unclear at this point. We will maintain Snea catheter for close monitoring of intake and output. 2. Respiratory failure with pneumonia and septic shock, improved, but still on Levophed. 3. History of stroke, no change. 4. Sacral decubitus, stable. 5. Malnutrition. 6. Contracture of lower extremities unchanged. 7. History of hyperlipidemia, stable. JOB# [id number]
[2017-07-12] MEDS: Albuterol/Ipratropium Neb 3 ML AERS HHN SCH ×6 (02:01→23:31)
[2017-07-12] MEDS: metroNIDAZOLE 500mg/NS 100mL 500 MG/100 ML BAG IV SCH ×3 (04:38→21:07)
[2017-07-12 05:34] LABS: HEMATOCRIT 37.2 % (41.0-60); HEMOGLOBIN 12.5 gm/dL (12-16); LYMPHOCYTE ABSOLUTE 0.3 Th/cmm (1.5-3.0); MEAN CELL VOLUME 84.5 fl (80-99); MEAN CORPUSCULAR HEMOGLOBIN 28.4 pg (27.0-31.0); MEAN CORPUSCULAR HGB CONC 33.7 pg (28.0-36.0); MONOCYTE ABSOLUTE 0.4 Th/cmm (0.3-1.0); NEUTROPHILE ABSOLUTE 14.7 Th/cmm (1.8-8.0); PLATELET COUNT 50 Th/cmm (150-400); RED BLOOD COUNT 4.41 Mil/cmm (3.80-5.80); RED CELL DISTRIBUTION WIDTH 15.1 % (11.5-20.0)
[2017-07-12 05:46] LABS: ALB/GLOB RATIO 0.8 (1.0-1.8); ALBUMIN 2.4 gm/dL (4.2-5.5); ALKALINE PHOSPHATASE 105 U/L (34-104); ANION GAP 7.9 (7.0-16.0); BILIRUBIN,TOTAL 0.8 mg/dL (0.3-1.0); BUN - UREA NITROGEN 39 mg/dL (7-25); CALCIUM SERUM 8.5 mg/dL (8.6-10.3); CARBON DIOXIDE 20.9 mEq/L (21.0-31.0); CHLORIDE 124 mEq/L (98-107); GLUCOSE 113 mg/dL (70-105); SGOT 52 U/L (13-39); SGPT/ALT 74 U/L (7-52); SODIUM SERUM 150 mEq/L (136-145); TOTAL PROTEIN,SERUM 5.6 gm/dL (6.0-8.3)
[2017-07-12 05:50] LABS: POTASSIUM SERUM 2.8 mEq/L (3.5-5.1)
[2017-07-12 05:51] LABS: % LYMPHOCYTES 2.1 % (20.0-50.0); % NEUTROPHILS 95.3 % (40.0-80.0); WHITE BLOOD COUNT 15.4 Th/cmm (4.8-10.8)
[2017-07-12 05:52] LABS: % EOSINOPHILS 0.1 % (0.0-5.0); % MONOCYTES 2.5 % (2.0-10.0)
[2017-07-12] MEDS: Levofloxacin 500mg/100mL 500 MG/100 ML BAG IV SCH (07:50)
--- NOTE | 2017-07-12 08:38 | Diagnostic Imaging Report ---
Portable chest x-ray HISTORY: Pneumonia Compared to prior exam of July 11, 2017, no change with persistent bilateral predominantly lower lobe infiltrates. IMPRESSION: 1. No significant change in the pulmonary status.
--- NOTE | 2017-07-12 08:48 | Diagnostic Imaging Report ---
Radionuclide perfusion/ventilation lung scan HISTORY: Shortness of breath 5.3 mCi technetium macroaggregated albumin was used in the perfusion portion of the exam. 34.0 mCi technetium DTPA aerosol was used in the ventilation portion of the exam. The exam demonstrates uniform activity throughout both lungs on ventilation and perfusion images. No focal defects. Specifically, no segmental defects. No perfusion/ventilation mismatches. IMPRESSION: Negative examination (low probability of pulmonary embolism)
[2017-07-12] MEDS: Polyvinyl Alcohol Ophth Soln 15 mL Bottle EACH EYE SCH (08:54)
[2017-07-12] MEDS: KCL 20mEq/100mL Premix 20 MEQ/100 ML PIGGYBACK IV SCH ×2 (08:55→11:20)
[2017-07-12] MEDS: D5W w/20 mEq KCL 1,000 ML IV SCH (10:10)
--- NOTE | 2017-07-12 19:16 | General Progress Note ---
Subjective - Review of Systems Service Date: 07/12/17 Subjective: more alert, verbal today, comfortable Objective - Results Result Diagrams: 07/12/17 04:40 07/12/17 04:40 Recent Labs: Laboratory Last Values WBC 15.4 Th/cmm (4.8-10.8) H D 07/12/17 04:40 RBC 4.41 Mil/cmm (3.80-5.80) 07/12/17 04:40 Hgb 12.5 gm/dL (12-16) 07/12/17 04:40 Hct 37.2 % (41.0-60) L 07/12/17 04:40 MCV 84.5 fl (80-99) 07/12/17 04:40 MCH 28.4 pg (27.0-31.0) 07/12/17 04:40 MCHC Differential 33.7 pg (28.0-36.0) 07/12/17 04:40 RDW 15.1 % (11.5-20.0) 07/12/17 04:40 Plt Count 50 Th/cmm (150-400) L 07/12/17 04:40 MPV 9.0 fl 07/12/17 04:40 Neutrophils % 95.3 % (40.0-80.0) H 07/12/17 04:40 Band Neutrophils % 15 % (0-10) H 07/11/17 14:14 Lymphocytes % 2.1 % (20.0-50.0) L 07/12/17 04:40 Monocytes % 2.5 % (2.0-10.0) 07/12/17 04:40 Eosinophils % 0.1 % (0.0-5.0) 07/12/17 04:40 Basophils % 0.0 % (0.0-2.0) 07/12/17 04:40 Neutrophils (Manual) 81 % (40-80) H 07/11/17 14:14 Lymphocytes 2 % (20-50) L 07/11/17 14:14 Monocytes 2 % (2-10) 07/11/17 14:14 Eosinophils 0 % (0-5) 07/11/17 14:14 Basophils 0 % (0-3) 07/11/17 14:14 Platelet Estimate DECREASED PLATELETS (NORMAL) 07/11/17 04:20 Eos Smear Source URINE 07/11/17 07:45 Eos Smear Total Cells NONE SEEN (NONE SEEN) 07/11/17 07:45 PT 12.8 SECONDS (9.5-11.5) H 07/10/17 10:30 INR 1.22 (0.5-1.4) 07/10/17 10:30 PTT (Actin FS) 34.9 SECONDS (26.0-38.0) 07/12/17 04:40 D-Dimer 4700 ng/mL (100-400) H 07/10/17 04:10 Specimen Source arterial 07/10/17 00:06 Sample Site rr 07/10/17 00:06 pH 7.48 (7.35-7.45) H 07/10/17 00:06 pCO2 23.0 mmHg (35.0-45.0) L* 07/10/17 00:06 pO2 88.0 mmHg (80.0-100.0) 07/10/17 00:06 HCO3 21.3 mEq/L (20.0-26.0) 07/10/17 00:06 Base Excess -4.7 mEq/L (-3.0-3.0) L 07/10/17 00:06 O2 Saturation 97.0 % (92.0-100.0) 07/10/17 00:06 Timothy Test positive 07/10/17 00:06 Vent Rate n/a 07/10/17 00:06 Inspired O2 100% 07/10/17 00:06 Tidal Volume n/a 07/10/17 00:06 PEEP N/A 07/10/17 00:06 Pressure (ins/psv/peep) N/A 07/10/17 00:06 Critical Value ABROEDEL 07/10/17 00:06 Sodium 150 mEq/L (136-145) H 07/12/17 04:40 Potassium 2.8 mEq/L (3.5-5.1) L* 07/12/17 04:40 Chloride 124 mEq/L (98-107) H 07/12/17 04:40 Carbon Dioxide 20.9 mEq/L (21.0-31.0) L 07/12/17 04:40 Anion Gap 7.9 (7.0-16.0) 07/12/17 04:40 BUN 39 mg/dL (7-25) H 07/12/17 04:40 Creatinine 1.0 mg/dL (0.7-1.3) 07/12/17 04:40 Est GFR ( Amer) TNP 07/12/17 04:40 Est GFR (Non-Af Amer) TNP 07/12/17 04:40 BUN/Creatinine Ratio 39.0 07/12/17 04:40 Glucose 113 mg/dL (70-105) H 07/12/17 04:40 Whole Bld Lactic Acid 2.18 mmol/L (0.60-1.99) H* 07/12/17 08:20 Uric Acid 6.0 mg/dL (4.4-7.6) 07/11/17 04:20 Calcium 8.5 mg/dL (8.6-10.3) L 07/12/17 04:40 Phosphorus 2.6 mg/dL (2.5-5.0) 07/11/17 04:20 Magnesium 2.0 mg/dL (1.9-2.7) 07/11/17 04:20 Total Bilirubin 0.8 mg/dL (0.3-1.0) 07/12/17 04:40 AST 52 U/L (13-39) H 07/12/17 04:40 ALT 74 U/L (7-52) H 07/12/17 04:40 Alkaline Phosphatase 105 U/L (34-104) H 07/12/17 04:40 Troponin I 0.03 ng/mL (0.01-0.05) 07/09/17 19:48 B-Natriuretic Peptide < 5.0 pg/mL (5.0-100.0) L 07/10/17 04:10 Total Protein 5.6 gm/dL (6.0-8.3) L 07/12/17 04:40 Albumin 2.4 gm/dL (4.2-5.5) L 07/12/17 04:40 Globulin 3.2 gm/dL 07/12/17 04:40 Albumin/Globulin Ratio 0.8 (1.0-1.8) L 07/12/17 04:40 Triglycerides 120 mg/dL (<150) 07/10/17 04:10 Cholesterol 48 mg/dL (<200) 07/10/17 04:10 LDL Cholesterol Direct 13 mg/dL (75-193) L 07/10/17 04:10 HDL Cholesterol 18 mg/dL (23-92) L 07/10/17 04:10 TSH 2.64 uIU/ml (0.34-5.60) 07/10/17 04:10 Urine Source ANSARI PORT 07/11/17 07:45 Urine Color YELLOW 07/11/17 07:45 Urine Clarity HAZY (CLEAR) 07/11/17 07:45 Urine pH 5.5 (4.6 - 8.0) 07/11/17 07:45 Ur Specific [place] 1.010 (1.005-1.030) 07/11/17 07:45 Urine Protein TRACE mg/dL (NEGATIVE) 07/11/17 07:45 Urine Glucose (UA) NEGATIVE mg/dL (NEGATIVE) 07/11/17 07:45 Urine Ketones NEGATIVE mg/dL (NEGATIVE) 07/11/17 07:45 Urine Blood SMALL (NEGATIVE) H 07/11/17 07:45 Urine Nitrate NEGATIVE (NEGATIVE) 07/11/17 07:45 Urine Bilirubin NEGATIVE (NEGATIVE) 07/11/17 07:45 Urine Urobilinogen 0.2 E.U./dL (0.2 - 1.0) 07/11/17 07:45 Ur Leukocyte Esterase TRACE (NEGATIVE) H 07/11/17 07:45 Urine RBC 0-2 /hpf (0-5) H 07/11/17 07:45 Urine WBC 2-5 /hpf (0-5) 07/11/17 07:45 Ur Epithelial Cells FEW /lpf (FEW) 07/11/17 07:45 Amorphous Sediment MODERATE PHOSPHATES (NONE SEEN) 07/11/17 02:35 Urine Bacteria FEW /hpf (NONE SEEN) 07/11/17 07:45 Fine Granular Casts 5-10 /lpf (NONE SEEN) H 07/11/17 02:35 Ur Random Sodium 88 mmol/L 07/11/17 07:45 Urine Creatinine 34.0 mg/dl (39.0-259.0) L 07/11/17 07:45 Random Vancomycin 22.3 ug/mL (5.0-40.0) 07/11/17 16:13 Levetiracetam 69.5 ug/mL (10.0-40.0) H 03/03/18 19:48 - Physical Exam Vitals and I&O: Vital Signs Temp 98.7 F 07/12/17 19:00 Pulse 85 07/12/17 19:00 Resp 30 07/12/17 19:00 BP 99/58 07/12/17 19:00 Pulse Ox 90 07/12/17 19:00 Intake & Output 07/12/17 07/12/17 07/13/17 06:59 18:59 06:59 Intake Total 2123.696 1358.148 Output Total 700 1100 Balance 1423.696 258.148 Weight (lbs) 51.256 kg 51.086 kg Intake: Intake, IV Amount 1973.696 978.148 Cefepime 1 gm In Dextrose 100 50 5% 50 ml @ 100 mls/hr IV Q8HR [facility] Rx#:[id number] KCL 20mEq/100mL Premix 20 100 meq In 100 ml @ 50 mls/ hr IV Q2H [facility] Rx#: [id number] Levofloxacin 500mg/100mL 100 500 mg In 100 ml @ 100 mls/hr IV Q24HR [facility] Rx#: [id number] Norepinephrine 4 mg In 360.363 107.315 Dextrose 5% 250 ml @ 8 MCG/MIN 30.48 mls/hr IV TITR PRN Rx#:[id number] Potassium Chloride 10 meq 1063.333 In Dextrose 5% 1,000 ml @ 125 mls/hr IV .Q8H3M [facility] Rx#:[id number] metroNIDAZOLE 500mg/NS 200 100 100mL 500 mg In 100 ml @ 100 mls/hr IV Q8HR [facility] Rx #:[id number] Oral 150 380 Output: Urine 700 1100 Other: # Bowel Movements 1 1 Stool Characteristics Soft Soft Brown Liquid Brown Active Medications: Current Medications Acetaminophen (Tylenol) 650 mg PO Q6HR PRN PRN Reason: Pain or Fever >101 Stop: 09/09/17 09:12 Last Admin: 07/12/17 15:35 Dose: 650 mg Albuterol/Ipratropium (Duoneb Neb) 3 ml HHN Q4HRT [facility] Stop: 09/08/17 14:59 Last Admin: 07/12/17 16:06 Dose: 3 ml Artificial Tears (Artificial Tears Ophth Soln) 1 drop EACH EYE DAILY [facility] Stop: 09/09/17 10:59 Last Admin: 07/12/17 08:54 Dose: 1 drop Atorvastatin Calcium (Lipitor) 20 mg PO HS [facility] Stop: 09/09/17 20:59 Last Admin: 07/11/17 20:47 Dose: 20 mg Norepinephrine Bitartrate 4 mg (/ Dextrose) 254 mls @ 30.48 mls/hr IV TITR PRN ; Protocol; 8 MCG/MIN PRN Reason: BP MAINTENANCE (PER PROTOCOL) Stop: 09/08/17 02:02 Last Admin: 07/12/17 11:38 Dose: 5 mcg/min, 19.05 mls/hr Levofloxacin (Levaquin Pb) 500 mg in 100 mls @ 100 mls/hr IV Q24HR [facility] Stop: 09/09/17 07:59 Last Infusion: 07/12/17 08:50 Dose: Infused Metronidazole (Flagyl) 500 mg in 100 mls @ 100 mls/hr IV Q8HR [facility] Stop: 09/09/17 12:59 Last Infusion: 07/12/17 13:15 Dose: Infused Cefepime HCl 1 gm/ Dextrose 50 mls @ 100 mls/hr IV Q8HR [facility] Stop: 09/09/17 20:59 Last Infusion: 07/12/17 13:23 Dose: Infused Potassium Chloride/Dextrose (D5w W/20 Meq Kcl) 1,000 mls @ 125 mls/hr IV .Q8H [facility] Stop: 09/10/17 09:14 Last Admin: 07/12/17 10:10 Dose: 125 mls/hr Vancomycin HCl 1 gm/ Sodium (Chloride) 250 mls @ 165 mls/hr IV Q12H [facility] Stop: 09/10/17 20:59 Levetiracetam (Keppra) 750 mg PO Q12HR [facility] Stop: 09/09/17 09:59 Last Admin: 07/12/17 08:54 Dose: 750 mg Magnesium Hydroxide (Milk Of Magnesia) 30 ml PO HS PRN PRN Reason: Constipation Stop: 09/09/17 09:12 Mirtazapine (Remeron) 7.5 mg PO HS [facility] Stop: 09/09/17 20:59 Miscellaneous (Vancomycin Iv Per Pharmacy) 1 ea MC DAILY [facility] Stop: 09/09/17 15:59 Pantoprazole Sodium (Protonix) 40 mg IVP DAILY [facility] Stop: 09/09/17 09:59 Last Admin: 07/12/17 08:54 Dose: 40 mg Sertraline HCl (Zoloft) 25 mg PO DAILY [facility] PRN Reason: Protocol Stop: 09/09/17 09:14 Sucralfate (Carafate) 1 gm PO ACHS [facility] Stop: 09/09/17 11:29 Last Admin: 07/12/17 16:24 Dose: 1 gm Zolpidem Tartrate (Ambien) 5 mg PO HS PRN PRN Reason: Insomnia Stop: 09/09/17 20:59 Last Admin: 07/11/17 20:48 Dose: 5 mg General: Alert, Mild distress HEENT: Atraumatic, EOMI Neck: Supple, +2 carotid pulse wo bruit Cardiovascular: Regular rate, Normal S1, Normal S2 Lungs: Other (scattered rhonchi) Abdomen: Bowel sounds, Soft Extremities: no Edema Neurological: Sensation intact Skin: no Rash Psych/Mental Status: Mood NL Assessment/Plan - Assessment Assessment: CHRISTIAN S/P CVA Left Hemiparesis CAD Shock 2/2 Sepsis Sepsis: HAP Severe Malnutrition Severe Contractures - Plan Plan: Lab - Result Diagrams 07/11/17 04:20 07/11/17 04:20 Current Medications Acetaminophen (Tylenol) 650 mg PO Q6HR PRN PRN Reason: Pain or Fever >101 Stop: 09/09/17 09:12 Albuterol/Ipratropium (Duoneb Neb) 3 ml HHN Q4HRT [facility] Stop: 09/08/17 14:59 Last Admin: 07/11/17 12:15 Dose: 3 ml Artificial Tears (Artificial Tears Ophth Soln) 1 drop EACH EYE DAILY [facility] Stop: 09/09/17 10:59 Last Admin: 07/11/17 12:54 Dose: 1 drop Atorvastatin Calcium (Lipitor) 20 mg PO HS [facility] Stop: 09/09/17 20:59 Norepinephrine Bitartrate 4 mg (/ Dextrose) 254 mls @ 30.48 mls/hr IV TITR PRN ; Protocol; 8 MCG/MIN PRN Reason: BP MAINTENANCE (PER PROTOCOL) Stop: 09/08/17 02:02 Last Admin: 07/11/17 12:28 Dose: 7 mcg/min, 26.67 mls/hr Heparin Sodium/Dextrose (Heparin Drip) 25,000 units in 250 mls @ 0 mls/hr IV TITR PRN; Protocol; 0 UNITS/HR PRN Reason: PROTOCOL Stop: 09/08/17 02:36 Last Titration: 07/10/17 14:30 Dose: 0 units/hr, 0 mls/hr Vancomycin HCl 1 gm/ Sodium (Chloride) 250 mls @ 165 mls/hr IV Q24H [facility] Stop: 09/08/17 11:29 Last Infusion: 07/11/17 12:25 Dose: Infused Levofloxacin (Levaquin Pb) 500 mg in 100 mls @ 100 mls/hr IV Q24HR [facility] Stop: 09/09/17 07:59 Last Infusion: 07/11/17 09:45 Dose: Infused Piperacillin Sod/Tazobactam (Sod 4.5 gm/ Sodium Chloride) 50 mls @ 100 mls/hr IV Q8HR [facility] Stop: 09/08/17 17:37 Last Infusion: 07/11/17 12:40 Dose: Infused Potassium Chloride 10 meq/ (Dextrose) 1,005 mls @ 125 mls/hr IV .Q8H3M [facility] Stop: 09/09/17 09:14 Last Admin: 07/11/17 10:00 Dose: 125 mls/hr Metronidazole (Flagyl) 500 mg in 100 mls @ 100 mls/hr IV Q8HR [facility] Stop: 09/09/17 12:59 Last Infusion: 07/11/17 13:30 Dose: Infused Levetiracetam (Keppra) 750 mg PO Q12HR [facility] Stop: 09/09/17 09:59 Last Admin: 07/11/17 10:00 Dose: Not Given Magnesium Hydroxide (Milk Of Magnesia) 30 ml PO HS PRN PRN Reason: Constipation Stop: 09/09/17 09:12 Mirtazapine (Remeron) 7.5 mg PO HS [facility] Stop: 09/09/17 20:59 Pantoprazole Sodium (Protonix) 40 mg IVP DAILY [facility] Stop: 09/09/17 09:59 Last Admin: 07/11/17 12:54 Dose: 40 mg Sertraline HCl (Zoloft) 25 mg PO DAILY [facility] PRN Reason: Protocol Stop: 09/09/17 09:14 Sucralfate (Carafate) 1 gm PO ACHS [facility] Stop: 09/09/17 11:29 Last Admin: 07/11/17 11:10 Dose: Not Given Lab - Result Diagrams 07/12/17 04:40 07/12/17 04:40 Kidney fnc improved w/ BUN/CR of 39/1 replace K continue hydration sudden improvement in WBC on Levo 10 meq CXR still w/ b/l infiltrates continue ABx Nutritional Asmnt/Malnutr-PDOC - Dietary Evaluation Malnutrition Findings (Please click <Entered> for more info): Nutritional Asmnt/Malnutrition Start: 07/11/17 14: 59 Text: Status: Complete Freq: Document 07/11/17 15:00 LCHENG (Rec: 07/11/17 15:15 LCHENG [email or web address]) Nutritional Asmnt/Malnutrition Patient General Information Nutritional Screening High Risk Diagnosis hypoxemia, respiratory disress , ARF Pertinent Medical Hx/Surgical Hx CVA, paralysis, seizure, heart disease Subjective Information Consult received on Ashish score 12. Pt seen resting in bed at time of visit, awake, on O2 mask. RN reported pt was choking on [facility] soft chopped diet, tolerating thin liquid. Current Diet Order/ Nutrition Support [facility] soft chopped, cardiac diet Pertinent Medications levaquin, remeron, protonix, piperacillin, vancomycin Pertinent Labs 3/5 Na 154, K 2.7, Cl 125, BUN 57, Cr 1.3, Glucose 175, Ca 8 .5 Nutritional Hx/Data Height 1.73 m Height (Calculated Centimeters) 172.7 Current Weight (lbs) 49.895 kg Weight (Calculated Kilograms) 49.9 Weight (Calculated Grams) 72909.2 [place] Body Weight 154 Body Mass Index (BMI) 16.7 Weight Status Underweight GI Symptoms GI Symptoms None Last BM 3/5 Difficult in: Chewing Skin Integrity/Comment: reddeded to back discoloered to right let/thigh , right hand/forearm, right upper extremity, right upper extremity and head pressure area to cyccyx/sacral and right hip Estimated Nutritional Goals Calories/Kcals/Kg 25-30 based on IBW 70kg Kcals Calculated 9025-7172 Protein g/k-1.2 monitor renal labs Protein Calculated 70-84 Fluid: ml 1750-2100ml Nutritional Problem 2. Problem Problem altered nutrition related lab values Etiology imbalanced electrolytes/fluid, CHRISTIAN, endocrine dysfunction Signs/Symptoms: Na 154, K 2.7, Cl 125, BUN 57, Glucose 175 1. Problem Problem chewing difficulty Etiology weakness Signs/Symptoms: pt choking on [facility] soft chopped diet Intervention/Recommendation Comments 1. Modify diet to [facility] soft ground cardiac diet. If PO intake low, will consider nutrition supplement. RN notified. 2. Monitor PO intake, wt, labs and skin integrity 3. F/U as high risk in 2-3 days, 07/13-07/14 Expected Outcomes/Goals Expected Outcomes/Goals 1. PO intake to meet at least 75% of nutritional needs. 2. Wt stability, skin to remain intact, labs to approach WNL.
[2017-07-12] MEDS: Atorvastatin Calcium 10 MG TAB PO SCH (21:27)
--- NOTE | 2017-07-12 21:58 | Progress Notes ---
DATE: UROLOGY FOLLOWUP SUBJECTIVE: The patient remains in ICU, but improved some more with breathing treatment and a Ventimask oxygen. He will receive BiPAP breathing after the treatment is done today. He is tolerating his diet, but eats very slowly with the help of feeding certified nursing assistant. Sena catheter is draining well and there has not been any bleeding or pain from it. OBJECTIVE: GENERAL: He is communicable. VITAL SIGNS: Temperature 98.7, heart rate 91, blood pressure 82/51. ABDOMEN: Soft, nondistended and nontender. Bladder is decompressed. Sena catheter, there is no blood. EXTREMITIES: Contracted, but no edema. LABORATORY DATA: White count is down to 15.4, much improved. Hemoglobin stable at 12.5, creatinine improved to 1.0. Lactic acid is still elevated to 2.1. Sodium elevated to 150 and potassium down to 2.8 indicating significant electrolyte imbalance and mildly elevated liver enzymes. His urine culture was negative as are the blood cultures. IMPRESSION: 1. Urinary retention with a Sena. We can give him a trial of voiding once he improves and gets a little stronger. 2. Bilateral pneumonia. Recent chest x-ray continues to show lower lobe infiltrates requiring ongoing breathing treatment and antibiotics. 3. Septic shock, improved. Past history of stroke. No change. Decubitus and contractures and malnutrition about the same. Recommend Sena catheter care. Avoid contamination and continue frequent irrigations. JOB# [id number]
[2017-07-12] MEDS ORDERED: KCL 20mEq/100mL Premix 20 MEQ/100 ML PIGGYBACK IV ONE (23:21)
[2017-07-13] MEDS: Albuterol/Ipratropium Neb 3 ML AERS HHN SCH ×6 (03:19→22:10)
[2017-07-13] MEDS: metroNIDAZOLE 500mg/NS 100mL 500 MG/100 ML BAG IV SCH ×3 (04:10→20:10)
[2017-07-13 05:18] LABS: HEMATOCRIT 37.1 % (41.0-60); HEMOGLOBIN 12.5 gm/dL (12-16); MANUAL DIFF REQUIRED? YES; MEAN CELL VOLUME 84.6 fl (80-99); MEAN CORPUSCULAR HEMOGLOBIN 28.5 pg (27.0-31.0); MEAN CORPUSCULAR HGB CONC 33.7 pg (28.0-36.0); MEAN PLATELET VOLUME 10.4 fl; PLATELET COUNT 33 Th/cmm (150-400); RED BLOOD COUNT 4.38 Mil/cmm (3.80-5.80); RED CELL DISTRIBUTION WIDTH 14.7 % (11.5-20.0)
[2017-07-13 05:25] LABS: WHITE BLOOD COUNT 14.3 Th/cmm (4.8-10.8)
[2017-07-13 05:31] LABS: ALB/GLOB RATIO 0.7 (1.0-1.8); ALBUMIN 2.2 gm/dL (4.2-5.5); ALKALINE PHOSPHATASE 90 U/L (34-104); ANION GAP 10.4 (7.0-16.0); BILIRUBIN,TOTAL 1.2 mg/dL (0.3-1.0); BUN - UREA NITROGEN 26 mg/dL (7-25); CALCIUM SERUM 8.4 mg/dL (8.6-10.3); CARBON DIOXIDE 18.3 mEq/L (21.0-31.0); CHLORIDE 119 mEq/L (98-107); CREATININE - SERUM 0.9 mg/dL (0.7-1.3); GLUCOSE 76 mg/dL (70-105); MAGNESIUM 1.6 mg/dL (1.9-2.7); SGOT 30 U/L (13-39); SGPT/ALT 50 U/L (7-52); SODIUM SERUM 145 mEq/L (136-145); TOTAL PROTEIN,SERUM 5.2 gm/dL (6.0-8.3)
[2017-07-13 05:39] LABS: POTASSIUM SERUM 2.7 mEq/L (3.5-5.1)
[2017-07-13 06:17] LABS: BAND NEUTROPHILE 12 % (0-10); LYMPHOCYTE 1 % (20-50); MONOCYTE 2 % (2-10); NEUTROPHILS 85 % (40-80); PLATELET ESTIMATE DECREASED PLATELETS (NORMAL); TOTAL CELLS COUNTED 100
[2017-07-13 07:52] LABS: INR 2.03 (0.5-1.4); PROTHROMBIN TIME (TEST) 21.9 SECONDS (9.5-11.5)
[2017-07-13] MEDS: D5W w/20 mEq KCL 1,000 ML IV SCH (07:57)
[2017-07-13] MEDS: Levofloxacin 500mg/100mL 500 MG/100 ML BAG IV SCH (08:10)
--- NOTE | 2017-07-13 08:20 | Diagnostic Imaging Report ---
Portable chest x-ray HISTORY: Shortness of breath Compared with prior exam of July 12, 2017, there appears to be an increase infiltrate within the left lower lobe. Persistent infiltrate also noted in the right lower lobe. Heart size remains normal. IMPRESSION: 1. Increased infiltrate left lower lobe persistent infiltrate in the right lower lobe.
[2017-07-13] MEDS ORDERED: KCL 20mEq/100mL Premix 20 MEQ/100 ML PIGGYBACK IV ONE (08:23)
[2017-07-13 09:21] LABS: ALLEN TEST YES
[2017-07-13] MEDS: Polyvinyl Alcohol Ophth Soln 15 mL Bottle EACH EYE SCH (09:30)
[2017-07-13] MEDS ORDERED: Mag Sulfate 2gm/50mL Premix 2 GM/50 ML BAG IV ONE (10:00)
--- NOTE | 2017-07-13 13:42 | Infectious Disease Prog Note ---
Infectious Disease Subjective - Review of Systems Service Date: 07/13/17 Subjective: There is no new change, no fever. more alert today. communicating now. on bipap. Infectious Disease Objective - Results Result Diagrams: 07/13/17 04:15 07/13/17 04:15 Recent Labs: Laboratory Last Values WBC 14.3 Th/cmm (4.8-10.8) H 07/13/17 04:15 RBC 4.38 Mil/cmm (3.80-5.80) 07/13/17 04:15 Hgb 12.5 gm/dL (12-16) 07/13/17 04:15 Hct 37.1 % (41.0-60) L 07/13/17 04:15 MCV 84.6 fl (80-99) 07/13/17 04:15 MCH 28.5 pg (27.0-31.0) 07/13/17 04:15 MCHC Differential 33.7 pg (28.0-36.0) 07/13/17 04:15 RDW 14.7 % (11.5-20.0) 07/13/17 04:15 Plt Count 33 Th/cmm (150-400) L 07/13/17 04:15 MPV 10.4 fl 07/13/17 04:15 Neutrophils % 95.3 % (40.0-80.0) H 07/12/17 04:40 Band Neutrophils % 12 % (0-10) H 07/13/17 04:15 Lymphocytes % 2.1 % (20.0-50.0) L 07/12/17 04:40 Monocytes % 2.5 % (2.0-10.0) 07/12/17 04:40 Eosinophils % 0.1 % (0.0-5.0) 07/12/17 04:40 Basophils % 0.0 % (0.0-2.0) 07/12/17 04:40 Neutrophils (Manual) 85 % (40-80) H 07/13/17 04:15 Lymphocytes 1 % (20-50) L 07/13/17 04:15 Monocytes 2 % (2-10) 07/13/17 04:15 Eosinophils 0 % (0-5) 07/11/17 14:14 Basophils 0 % (0-3) 07/11/17 14:14 Platelet Estimate DECREASED PLATELETS (NORMAL) 07/13/17 04:15 Eos Smear Source URINE 07/11/17 07:45 Eos Smear Total Cells NONE SEEN (NONE SEEN) 07/11/17 07:45 PT 21.9 SECONDS (9.5-11.5) H 07/13/17 04:15 INR 2.03 (0.5-1.4) H 07/13/17 04:15 PTT (Actin FS) 50.3 SECONDS (26.0-38.0) H 07/13/17 04:15 D-Dimer 4700 ng/mL (100-400) H 07/10/17 04:10 Specimen Source Arterial 07/13/17 09:10 Sample Site Right Radial 07/13/17 09:10 pH 7.50 (7.35-7.45) H 07/13/17 09:10 pCO2 26.0 mmHg (35.0-45.0) L 07/13/17 09:10 pO2 72.0 mmHg (80.0-100.0) L 07/13/17 09:10 HCO3 23.7 mEq/L (20.0-26.0) 07/13/17 09:10 Base Excess -1.6 mEq/L (-3.0-3.0) 07/13/17 09:10 O2 Saturation 96.0 % (92.0-100.0) 07/13/17 09:10 Timothy Test YES 07/13/17 09:10 Vent Rate NA 07/13/17 09:10 Inspired O2 70 07/13/17 09:10 Tidal Volume 12 07/13/17 09:10 PEEP NA 07/13/17 09:10 Pressure (ins/psv/peep) 6 07/13/17 09:10 Critical Value E.ROD 07/13/17 09:10 Sodium 145 mEq/L (136-145) 07/13/17 04:15 Potassium 2.7 mEq/L (3.5-5.1) L* 07/13/17 04:15 Chloride 119 mEq/L (98-107) H 07/13/17 04:15 Carbon Dioxide 18.3 mEq/L (21.0-31.0) L 07/13/17 04:15 Anion Gap 10.4 (7.0-16.0) 07/13/17 04:15 BUN 26 mg/dL (7-25) H 07/13/17 04:15 Creatinine 0.9 mg/dL (0.7-1.3) 07/13/17 04:15 Est GFR ( Amer) TNP 07/13/17 04:15 Est GFR (Non-Af Amer) TNP 07/13/17 04:15 BUN/Creatinine Ratio 28.9 07/13/17 04:15 Glucose 76 mg/dL (70-105) 07/13/17 04:15 Whole Bld Lactic Acid 2.18 mmol/L (0.60-1.99) H* 07/12/17 08:20 Uric Acid 6.0 mg/dL (4.4-7.6) 07/11/17 04:20 Calcium 8.4 mg/dL (8.6-10.3) L 07/13/17 04:15 Phosphorus 2.6 mg/dL (2.5-5.0) 07/11/17 04:20 Magnesium 1.6 mg/dL (1.9-2.7) L 07/13/17 04:15 Total Bilirubin 1.2 mg/dL (0.3-1.0) H 07/13/17 04:15 AST 30 U/L (13-39) 07/13/17 04:15 ALT 50 U/L (7-52) 07/13/17 04:15 Alkaline Phosphatase 90 U/L (34-104) 07/13/17 04:15 Troponin I 0.03 ng/mL (0.01-0.05) 07/09/17 19:48 B-Natriuretic Peptide 431.0 pg/mL (5.0-100.0) H 07/13/17 04:15 Total Protein 5.2 gm/dL (6.0-8.3) L 07/13/17 04:15 Albumin 2.2 gm/dL (4.2-5.5) L 07/13/17 04:15 Globulin 3.0 gm/dL 07/13/17 04:15 Albumin/Globulin Ratio 0.7 (1.0-1.8) L 07/13/17 04:15 Triglycerides 120 mg/dL (<150) 07/10/17 04:10 Cholesterol 48 mg/dL (<200) 07/10/17 04:10 LDL Cholesterol Direct 13 mg/dL (75-193) L 07/10/17 04:10 HDL Cholesterol 18 mg/dL (23-92) L 07/10/17 04:10 TSH 2.64 uIU/ml (0.34-5.60) 07/10/17 04:10 Urine Source ANSARI PORT 07/11/17 07:45 Urine Color YELLOW 07/11/17 07:45 Urine Clarity HAZY (CLEAR) 07/11/17 07:45 Urine pH 5.5 (4.6 - 8.0) 07/11/17 07:45 Ur Specific Roy 1.010 (1.005-1.030) 07/11/17 07:45 Urine Protein TRACE mg/dL (NEGATIVE) 07/11/17 07:45 Urine Glucose (UA) NEGATIVE mg/dL (NEGATIVE) 07/11/17 07:45 Urine Ketones NEGATIVE mg/dL (NEGATIVE) 07/11/17 07:45 Urine Blood SMALL (NEGATIVE) H 07/11/17 07:45 Urine Nitrate NEGATIVE (NEGATIVE) 07/11/17 07:45 Urine Bilirubin NEGATIVE (NEGATIVE) 07/11/17 07:45 Urine Urobilinogen 0.2 E.U./dL (0.2 - 1.0) 07/11/17 07:45 Ur Leukocyte Esterase TRACE (NEGATIVE) H 07/11/17 07:45 Urine RBC 0-2 /hpf (0-5) H 07/11/17 07:45 Urine WBC 2-5 /hpf (0-5) 07/11/17 07:45 Ur Epithelial Cells FEW /lpf (FEW) 07/11/17 07:45 Amorphous Sediment MODERATE PHOSPHATES (NONE SEEN) 07/11/17 02:35 Urine Bacteria FEW /hpf (NONE SEEN) 07/11/17 07:45 Fine Granular Casts 5-10 /lpf (NONE SEEN) H 07/11/17 02:35 Urine Osmolality 404 mOsmol/kg 07/11/17 02:35 Ur Random Sodium 88 mmol/L 07/11/17 07:45 Urine Creatinine 34.0 mg/dl (39.0-259.0) L 07/11/17 07:45 Vancomycin Trough 23.3 ug/mL (10-20) H 07/13/17 08:00 Random Vancomycin 22.3 ug/mL (5.0-40.0) 07/11/17 16:13 Levetiracetam 69.5 ug/mL (10.0-40.0) H 07/09/17 19:48 Ur L.pneumophila Ag Negative (Negative) 07/11/17 02:35 - Physical Exam Vitals and I&O: Vital Signs Temp 98.7 F 07/13/17 04:00 Pulse 100 07/13/17 07:00 Resp 28 07/13/17 11:57 BP 100/56 07/13/17 07:00 Pulse Ox 94 07/13/17 11:57 Intake & Output 07/12/17 07/13/17 07/13/17 18:59 06:59 18:59 Intake Total 2358.148 504 Output Total 1100 950 Balance 1258.148 -446 Weight (lbs) 51.086 kg 50.712 kg Intake: Intake, IV Amount 1978.148 404 Cefepime 1 gm In Dextrose 50 50 5% 50 ml @ 100 mls/hr IV Q8HR [facility] Rx#:[id number] D5W w/20 mEq KCL 1,000 ml 1000 @ 125 mls/hr IV .Q8H [facility] Rx#:[id number] KCL 20mEq/100mL Premix 20 100 meq In 100 ml @ 50 mls/ hr IV Q2H [facility] Rx#: [id number] Levofloxacin 500mg/100mL 100 500 mg In 100 ml @ 100 mls/hr IV Q24HR [facility] Rx#: [id number] Norepinephrine 4 mg In 107.315 254 Dextrose 5% 250 ml @ 8 MCG/MIN 30.48 mls/hr IV TITR PRN Rx#:[id number] metroNIDAZOLE 500mg/NS 100 100 100mL 500 mg In 100 ml @ 100 mls/hr IV Q8HR [facility] Rx #:[id number] Oral 380 100 Output: Urine 1100 950 Other: # Bowel Movements 1 1 Stool Characteristics Soft Liquid Brown Active Medications: Current Medications Acetaminophen (Tylenol) 650 mg PO Q6HR PRN PRN Reason: Pain or Fever >101 Stop: 09/09/17 09:12 Last Admin: 07/12/17 15:35 Dose: 650 mg Albuterol/Ipratropium (Duoneb Neb) 3 ml HHN Q4HRT [facility] Stop: 09/08/17 14:59 Last Admin: 07/13/17 11:57 Dose: 3 ml Artificial Tears (Artificial Tears Ophth Soln) 1 drop EACH EYE DAILY ARMAND Stop: 09/09/17 10:59 Last Admin: 07/13/17 09:30 Dose: 1 drop Atorvastatin Calcium (Lipitor) 20 mg PO HS [facility] Stop: 09/09/17 20:59 Last Admin: 07/12/17 21:27 Dose: 20 mg Levofloxacin (Levaquin Pb) 500 mg in 100 mls @ 100 mls/hr IV Q24HR [facility] Stop: 09/09/17 07:59 Last Admin: 07/13/17 08:10 Dose: 100 mls/hr Metronidazole (Flagyl) 500 mg in 100 mls @ 100 mls/hr IV Q8HR [facility] Stop: 09/09/17 12:59 Last Admin: 07/13/17 04:10 Dose: 100 mls/hr Cefepime HCl 1 gm/ Dextrose 50 mls @ 100 mls/hr IV Q8HR [facility] Stop: 09/09/17 20:59 Last Admin: 07/13/17 05:19 Dose: 100 mls/hr Norepinephrine Bitartrate 4 mg (/ Sodium Chloride) 254 mls @ 0 mls/hr IV TITR PRN; Protocol; 0 MCG/MIN PRN Reason: BP MAINTENANCE (PER PROTOCOL) Stop: 09/11/17 09:59 Last Admin: 07/13/17 11:36 Dose: 7 mcg/min, 26.67 mls/hr Potassium Chloride 40 meq/ (Dextrose) 1,020 mls @ 70 mls/hr IV .[id number] [facility] Stop: 09/11/17 08:29 Last Admin: 07/13/17 11:38 Dose: 70 mls/hr Levetiracetam (Keppra) 750 mg PO Q12HR [facility] Stop: 09/09/17 09:59 Last Admin: 07/13/17 09:30 Dose: 750 mg Magnesium Hydroxide (Milk Of Magnesia) 30 ml PO HS PRN PRN Reason: Constipation Stop: 09/09/17 09:12 Mirtazapine (Remeron) 7.5 mg PO HS [facility] Stop: 09/09/17 20:59 Pantoprazole Sodium (Protonix) 40 mg IVP DAILY [facility] Stop: 09/09/17 09:59 Last Admin: 07/13/17 09:30 Dose: 40 mg Sertraline HCl (Zoloft) 25 mg PO DAILY ARMAND PRN Reason: Protocol Stop: 09/09/17 09:14 Sucralfate (Carafate) 1 gm PO ACHS ARMAND Stop: 09/09/17 11:29 Last Admin: 07/13/17 11:32 Dose: 1 gm Zolpidem Tartrate (Ambien) 5 mg PO HS PRN PRN Reason: Insomnia Stop: 09/09/17 20:59 Last Admin: 07/11/17 20:48 Dose: 5 mg General: no acute distress, well developed, well nourished HEENT: atraumatic, normocephalic, PERRLA, EOMI Neck: supple, no thyromegaly, no lymphadenopathy Cardiovascular: S1S2, regular Lungs: clear to percussion, crackles Abdomen: soft, no tender, no distended, no mass Extremities: no cyanosis, no clubbing, no edema Neurological: awake, alert Skin: intact Infectious Disease Assmt/Plan - Assessment Assessment: 1. Severe septic shock with multiorgan failure. Improving. although WBC count went very high, will check CBC again. 2. Pneumonia, likely aspiration pneumonia versus atypical pneumonia. 3. Cerebrovascular accident. 4. Respiratory insufficiency. 5. Hepatitis. 6. Benign prostatic hypertrophy. 7. Acute renal failure, acute kidney injury. 8. Lactic acidosis. 9. History of hypertension. 10. History of chronic disease. 11. History of seizure disorder. 12. Sacral decubitus ulcer. - Plan Plan: Will continue cefepime and flagyl. and levaquin. buhmi starr. Nutritional Asmnt/Malnutr-PDOC - Dietary Evaluation Malnutrition Findings (Please click <Entered> for more info): Nutritional Asmnt/Malnutrition Start: 07/11/17 14: 59 Text: Status: Complete Freq: Document 07/11/17 15:00 RODNEY (Rec: 07/11/17 15:15 RODNEY LANGLEY-ZENOBIA) Nutritional Asmnt/Malnutrition Patient General Information Nutritional Screening High Risk Diagnosis hypoxemia, respiratory disress , ARF Pertinent Medical Hx/Surgical Hx CVA, paralysis, seizure, heart disease Subjective Information Consult received on Ashish score 12. Pt seen resting in bed at time of visit, awake, on O2 mask. RN reported pt was choking on [facility] soft chopped diet, tolerating thin liquid. Current Diet Order/ Nutrition Support [facility] soft chopped, cardiac diet Pertinent Medications levaquin, remeron, protonix, piperacillin, vancomycin Pertinent Labs 07/11 Na 154, K 2.7, Cl 125, BUN 57, Cr 1.3, Glucose 175, Ca 8 .5 Nutritional Hx/Data Height 1.73 m Height (Calculated Centimeters) 172.7 Current Weight (lbs) 49.895 kg Weight (Calculated Kilograms) 49.9 Weight (Calculated Grams) 01359.2 [place] Body Weight 154 Body Mass Index (BMI) 16.7 Weight Status Underweight GI Symptoms GI Symptoms None Last BM 3 Difficult in: Chewing Skin Integrity/Comment: reddeded to back discoloered to right let/thigh , right hand/forearm, right upper extremity, right upper extremity and head pressure area to cyccyx/sacral and right hip Estimated Nutritional Goals Calories/Kcals/Kg 25-30 based on IBW 70kg Kcals Calculated 6129-9346 Protein g/k-1.2 monitor renal labs Protein Calculated 70-84 Fluid: ml 1750-2100ml Nutritional Problem 2. Problem Problem altered nutrition related lab values Etiology imbalanced electrolytes/fluid, CHRISTIAN, endocrine dysfunction Signs/Symptoms: Na 154, K 2.7, Cl 125, BUN 57, Glucose 175 1. Problem Problem chewing difficulty Etiology weakness Signs/Symptoms: pt choking on [facility] soft chopped diet Intervention/Recommendation Comments 1. Modify diet to [facility] soft ground cardiac diet. If PO intake low, will consider nutrition supplement. RN notified. 2. Monitor PO intake, wt, labs and skin integrity 3. F/U as high risk in 2-3 days, 07/13-07/14 Expected Outcomes/Goals Expected Outcomes/Goals 1. PO intake to meet at least 75% of nutritional needs. 2. Wt stability, skin to remain intact, labs to approach WNL.
--- NOTE | 2017-07-13 14:13 | Diagnostic Imaging Report ---
CHEST X-RAY: AP view INDICATION: Right PICC line placement COMPARISON: Chest x-ray 07/13/2017 FINDINGS: Right upper extremity PICC line is in place with tip in SVC. Bilateral infiltrates are seen greatest in the right lung base. Heart size is normal. IMPRESSION: Interval new right upper extremity PICC line placement with tip in the SVC Bilateral pulmonary infiltrates, greatest within the right lung base.
--- NOTE | 2017-07-13 14:43 | General Progress Note ---
Subjective - Review of Systems Service Date: 07/13/17 Subjective: eyes barely open, on BIPAP Objective - Results Result Diagrams: 07/13/17 04:15 07/13/17 04:15 Recent Labs: Laboratory Last Values WBC 14.3 Th/cmm (4.8-10.8) H 07/13/17 04:15 RBC 4.38 Mil/cmm (3.80-5.80) 07/13/17 04:15 Hgb 12.5 gm/dL (12-16) 07/13/17 04:15 Hct 37.1 % (41.0-60) L 07/13/17 04:15 MCV 84.6 fl (80-99) 07/13/17 04:15 MCH 28.5 pg (27.0-31.0) 07/13/17 04:15 MCHC Differential 33.7 pg (28.0-36.0) 07/13/17 04:15 RDW 14.7 % (11.5-20.0) 07/13/17 04:15 Plt Count 33 Th/cmm (150-400) L 07/13/17 04:15 MPV 10.4 fl 07/13/17 04:15 Neutrophils % 95.3 % (40.0-80.0) H 07/12/17 04:40 Band Neutrophils % 12 % (0-10) H 07/13/17 04:15 Lymphocytes % 2.1 % (20.0-50.0) L 07/12/17 04:40 Monocytes % 2.5 % (2.0-10.0) 07/12/17 04:40 Eosinophils % 0.1 % (0.0-5.0) 07/12/17 04:40 Basophils % 0.0 % (0.0-2.0) 07/12/17 04:40 Neutrophils (Manual) 85 % (40-80) H 07/13/17 04:15 Lymphocytes 1 % (20-50) L 07/13/17 04:15 Monocytes 2 % (2-10) 07/13/17 04:15 Eosinophils 0 % (0-5) 07/11/17 14:14 Basophils 0 % (0-3) 07/11/17 14:14 Platelet Estimate DECREASED PLATELETS (NORMAL) 07/13/17 04:15 Eos Smear Source URINE 07/11/17 07:45 Eos Smear Total Cells NONE SEEN (NONE SEEN) 07/11/17 07:45 PT 21.9 SECONDS (9.5-11.5) H 07/13/17 04:15 INR 2.03 (0.5-1.4) H 07/13/17 04:15 PTT (Actin FS) 50.3 SECONDS (26.0-38.0) H 07/13/17 04:15 D-Dimer 4700 ng/mL (100-400) H 07/10/17 04:10 Specimen Source Arterial 07/13/17 09:10 Sample Site Right Radial 07/13/17 09:10 pH 7.50 (7.35-7.45) H 07/13/17 09:10 pCO2 26.0 mmHg (35.0-45.0) L 07/13/17 09:10 pO2 72.0 mmHg (80.0-100.0) L 07/13/17 09:10 HCO3 23.7 mEq/L (20.0-26.0) 07/13/17 09:10 Base Excess -1.6 mEq/L (-3.0-3.0) 07/13/17 09:10 O2 Saturation 96.0 % (92.0-100.0) 07/13/17 09:10 Timothy Test YES 07/13/17 09:10 Vent Rate NA 07/13/17 09:10 Inspired O2 70 07/13/17 09:10 Tidal Volume 12 07/13/17 09:10 PEEP NA 07/13/17 09:10 Pressure (ins/psv/peep) 6 07/13/17 09:10 Critical Value E.ROD 07/13/17 09:10 Sodium 145 mEq/L (136-145) 07/13/17 04:15 Potassium 2.7 mEq/L (3.5-5.1) L* 07/13/17 04:15 Chloride 119 mEq/L (98-107) H 07/13/17 04:15 Carbon Dioxide 18.3 mEq/L (21.0-31.0) L 07/13/17 04:15 Anion Gap 10.4 (7.0-16.0) 07/13/17 04:15 BUN 26 mg/dL (7-25) H 07/13/17 04:15 Creatinine 0.9 mg/dL (0.7-1.3) 07/13/17 04:15 Est GFR ( Amer) TNP 07/13/17 04:15 Est GFR (Non-Af Amer) TNP 07/13/17 04:15 BUN/Creatinine Ratio 28.9 07/13/17 04:15 Glucose 76 mg/dL (70-105) 07/13/17 04:15 Whole Bld Lactic Acid 2.18 mmol/L (0.60-1.99) H* 07/12/17 08:20 Uric Acid 6.0 mg/dL (4.4-7.6) 07/11/17 04:20 Calcium 8.4 mg/dL (8.6-10.3) L 07/13/17 04:15 Phosphorus 2.6 mg/dL (2.5-5.0) 07/11/17 04:20 Magnesium 1.6 mg/dL (1.9-2.7) L 07/13/17 04:15 Total Bilirubin 1.2 mg/dL (0.3-1.0) H 07/13/17 04:15 AST 30 U/L (13-39) 07/13/17 04:15 ALT 50 U/L (7-52) 07/13/17 04:15 Alkaline Phosphatase 90 U/L (34-104) 07/13/17 04:15 Troponin I 0.03 ng/mL (0.01-0.05) 07/09/17 19:48 B-Natriuretic Peptide 431.0 pg/mL (5.0-100.0) H 07/13/17 04:15 Total Protein 5.2 gm/dL (6.0-8.3) L 07/13/17 04:15 Albumin 2.2 gm/dL (4.2-5.5) L 07/13/17 04:15 Globulin 3.0 gm/dL 07/13/17 04:15 Albumin/Globulin Ratio 0.7 (1.0-1.8) L 07/13/17 04:15 Triglycerides 120 mg/dL (<150) 07/10/17 04:10 Cholesterol 48 mg/dL (<200) 07/10/17 04:10 LDL Cholesterol Direct 13 mg/dL (75-193) L 07/10/17 04:10 HDL Cholesterol 18 mg/dL (23-92) L 07/10/17 04:10 TSH 2.64 uIU/ml (0.34-5.60) 07/10/17 04:10 Urine Source ANSARI PORT 07/11/17 07:45 Urine Color YELLOW 07/11/17 07:45 Urine Clarity HAZY (CLEAR) 07/11/17 07:45 Urine pH 5.5 (4.6 - 8.0) 07/11/17 07:45 Ur Specific [place] 1.010 (1.005-1.030) 07/11/17 07:45 Urine Protein TRACE mg/dL (NEGATIVE) 07/11/17 07:45 Urine Glucose (UA) NEGATIVE mg/dL (NEGATIVE) 07/11/17 07:45 Urine Ketones NEGATIVE mg/dL (NEGATIVE) 07/11/17 07:45 Urine Blood SMALL (NEGATIVE) H 07/11/17 07:45 Urine Nitrate NEGATIVE (NEGATIVE) 07/11/17 07:45 Urine Bilirubin NEGATIVE (NEGATIVE) 07/11/17 07:45 Urine Urobilinogen 0.2 E.U./dL (0.2 - 1.0) 07/11/17 07:45 Ur Leukocyte Esterase TRACE (NEGATIVE) H 07/11/17 07:45 Urine RBC 0-2 /hpf (0-5) H 07/11/17 07:45 Urine WBC 2-5 /hpf (0-5) 07/11/17 07:45 Ur Epithelial Cells FEW /lpf (FEW) 07/11/17 07:45 Amorphous Sediment MODERATE PHOSPHATES (NONE SEEN) 07/11/17 02:35 Urine Bacteria FEW /hpf (NONE SEEN) 07/11/17 07:45 Fine Granular Casts 5-10 /lpf (NONE SEEN) H 07/11/17 02:35 Urine Osmolality 404 mOsmol/kg 07/11/17 02:35 Ur Random Sodium 88 mmol/L 07/11/17 07:45 Urine Creatinine 34.0 mg/dl (39.0-259.0) L 07/11/17 07:45 Vancomycin Trough 23.3 ug/mL (10-20) H 07/13/17 08:00 Random Vancomycin 22.3 ug/mL (5.0-40.0) 07/11/17 16:13 Levetiracetam 69.5 ug/mL (10.0-40.0) H 07/09/17 19:48 Ur L.pneumophila Ag Negative (Negative) 07/11/17 02:35 - Physical Exam Vitals and I&O: Vital Signs Temp 98.2 F 07/13/17 14:00 Pulse 83 07/13/17 14:00 Resp 31 07/13/17 14:00 BP 92/63 07/13/17 14:00 Pulse Ox 94 07/13/17 14:00 Intake & Output 07/12/17 07/13/17 07/13/17 18:59 06:59 18:59 Intake Total 2358.148 654 200 Output Total 1100 950 Balance 1258.148 -296 200 Weight (lbs) 51.086 kg 50.712 kg Intake: Intake, IV Amount 1978.148 554 200 Cefepime 1 gm In Dextrose 50 100 5% 50 ml @ 100 mls/hr IV Q8HR [facility] Rx#:[id number] D5W w/20 mEq KCL 1,000 ml 1000 @ 125 mls/hr IV .Q8H [facility] Rx#:[id number] KCL 20mEq/100mL Premix 20 100 meq In 100 ml @ 50 mls/ hr IV Q2H [facility] Rx#: [id number] Levofloxacin 500mg/100mL 100 100 500 mg In 100 ml @ 100 mls/hr IV Q24HR [facility] Rx#: [id number] Norepinephrine 4 mg In 107.315 254 Dextrose 5% 250 ml @ 8 MCG/MIN 30.48 mls/hr IV TITR PRN Rx#:[id number] metroNIDAZOLE 500mg/NS 100 200 100 100mL 500 mg In 100 ml @ 100 mls/hr IV Q8HR [facility] Rx #:[id number] Oral 380 100 Output: Urine 1100 950 Other: # Bowel Movements 1 1 Stool Characteristics Soft Liquid Brown Active Medications: Current Medications Acetaminophen (Tylenol) 650 mg PO Q6HR PRN PRN Reason: Pain or Fever >101 Stop: 09/09/17 09:12 Last Admin: 07/12/17 15:35 Dose: 650 mg Albuterol/Ipratropium (Duoneb Neb) 3 ml HHN Q4HRT [facility] Stop: 09/08/17 14:59 Last Admin: 07/13/17 11:57 Dose: 3 ml Artificial Tears (Artificial Tears Ophth Soln) 1 drop EACH EYE DAILY [facility] Stop: 09/09/17 10:59 Last Admin: 07/13/17 09:30 Dose: 1 drop Atorvastatin Calcium (Lipitor) 20 mg PO HS [facility] Stop: 09/09/17 20:59 Last Admin: 07/12/17 21:27 Dose: 20 mg Levofloxacin (Levaquin Pb) 500 mg in 100 mls @ 100 mls/hr IV Q24HR [facility] Stop: 09/09/17 07:59 Last Infusion: 07/13/17 09:10 Dose: Infused Metronidazole (Flagyl) 500 mg in 100 mls @ 100 mls/hr IV Q8HR [facility] Stop: 09/09/17 12:59 Last Infusion: 07/13/17 14:00 Dose: Infused Cefepime HCl 1 gm/ Dextrose 50 mls @ 100 mls/hr IV Q8HR [facility] Stop: 09/09/17 20:59 Last Admin: 07/13/17 14:00 Dose: 100 mls/hr Norepinephrine Bitartrate 4 mg (/ Sodium Chloride) 254 mls @ 0 mls/hr IV TITR PRN; Protocol; 0 MCG/MIN PRN Reason: BP MAINTENANCE (PER PROTOCOL) Stop: 09/11/17 09:59 Last Admin: 07/13/17 11:36 Dose: 7 mcg/min, 26.67 mls/hr Potassium Chloride 40 meq/ (Dextrose) 1,020 mls @ 70 mls/hr IV .[id number] [facility] Stop: 09/11/17 08:29 Last Admin: 07/13/17 11:38 Dose: 70 mls/hr Levetiracetam (Keppra) 750 mg PO Q12HR [facility] Stop: 09/09/17 09:59 Last Admin: 07/13/17 09:30 Dose: 750 mg Magnesium Hydroxide (Milk Of Magnesia) 30 ml PO HS PRN PRN Reason: Constipation Stop: 09/09/17 09:12 Mirtazapine (Remeron) 7.5 mg PO HS [facility] Stop: 09/09/17 20:59 Pantoprazole Sodium (Protonix) 40 mg IVP DAILY [facility] Stop: 09/09/17 09:59 Last Admin: 07/13/17 09:30 Dose: 40 mg Sertraline HCl (Zoloft) 25 mg PO DAILY [facility] PRN Reason: Protocol Stop: 09/09/17 09:14 Sucralfate (Carafate) 1 gm PO ACHS [facility] Stop: 09/09/17 11:29 Last Admin: 07/13/17 11:32 Dose: 1 gm Zolpidem Tartrate (Ambien) 5 mg PO HS PRN PRN Reason: Insomnia Stop: 09/09/17 20:59 Last Admin: 07/11/17 20:48 Dose: 5 mg General: Mild distress HEENT: Atraumatic, EOMI Neck: Supple, +2 carotid pulse wo bruit Cardiovascular: Regular rate, Normal S1, Normal S2 Lungs: Other (scattered rhonchi) Abdomen: Bowel sounds, Soft Extremities: Other (severely contracted), no Edema Neurological: Sensation intact Skin: no Rash Psych/Mental Status: Mood NL Assessment/Plan - Assessment Assessment: CHRISTIAN S/P CVA Left Hemiparesis CAD Shock 2/2 Sepsis Sepsis: HAP Severe Malnutrition Severe Contractures - Plan Plan: Lab - Result Diagrams 07/11/17 04:20 07/11/17 04:20 Current Medications Acetaminophen (Tylenol) 650 mg PO Q6HR PRN PRN Reason: Pain or Fever >101 Stop: 09/09/17 09:12 Albuterol/Ipratropium (Duoneb Neb) 3 ml HHN Q4HRT [facility] Stop: 09/08/17 14:59 Last Admin: 07/11/17 12:15 Dose: 3 ml Artificial Tears (Artificial Tears Ophth Soln) 1 drop EACH EYE DAILY [facility] Stop: 09/09/17 10:59 Last Admin: 07/11/17 12:54 Dose: 1 drop Atorvastatin Calcium (Lipitor) 20 mg PO HS [facility] Stop: 09/09/17 20:59 Norepinephrine Bitartrate 4 mg (/ Dextrose) 254 mls @ 30.48 mls/hr IV TITR PRN ; Protocol; 8 MCG/MIN PRN Reason: BP MAINTENANCE (PER PROTOCOL) Stop: 09/08/17 02:02 Last Admin: 07/11/17 12:28 Dose: 7 mcg/min, 26.67 mls/hr Heparin Sodium/Dextrose (Heparin Drip) 25,000 units in 250 mls @ 0 mls/hr IV TITR PRN; Protocol; 0 UNITS/HR PRN Reason: PROTOCOL Stop: 09/08/17 02:36 Last Titration: 07/10/17 14:30 Dose: 0 units/hr, 0 mls/hr Vancomycin HCl 1 gm/ Sodium (Chloride) 250 mls @ 165 mls/hr IV Q24H [facility] Stop: 09/08/17 11:29 Last Infusion: 07/11/17 12:25 Dose: Infused Levofloxacin (Levaquin Pb) 500 mg in 100 mls @ 100 mls/hr IV Q24HR [facility] Stop: 09/09/17 07:59 Last Infusion: 07/11/17 09:45 Dose: Infused Piperacillin Sod/Tazobactam (Sod 4.5 gm/ Sodium Chloride) 50 mls @ 100 mls/hr IV Q8HR [facility] Stop: 09/08/17 17:37 Last Infusion: 07/11/17 12:40 Dose: Infused Potassium Chloride 10 meq/ (Dextrose) 1,005 mls @ 125 mls/hr IV .Q8H3M [facility] Stop: 09/09/17 09:14 Last Admin: 07/11/17 10:00 Dose: 125 mls/hr Metronidazole (Flagyl) 500 mg in 100 mls @ 100 mls/hr IV Q8HR [facility] Stop: 09/09/17 12:59 Last Infusion: 07/11/17 13:30 Dose: Infused Levetiracetam (Keppra) 750 mg PO Q12HR [facility] Stop: 09/09/17 09:59 Last Admin: 07/11/17 10:00 Dose: Not Given Magnesium Hydroxide (Milk Of Magnesia) 30 ml PO HS PRN PRN Reason: Constipation Stop: 09/09/17 09:12 Mirtazapine (Remeron) 7.5 mg PO HS [facility] Stop: 09/09/17 20:59 Pantoprazole Sodium (Protonix) 40 mg IVP DAILY [facility] Stop: 09/09/17 09:59 Last Admin: 07/11/17 12:54 Dose: 40 mg Sertraline HCl (Zoloft) 25 mg PO DAILY [facility] PRN Reason: Protocol Stop: 09/09/17 09:14 Sucralfate (Carafate) 1 gm PO ACHS [facility] Stop: 09/09/17 11:29 Last Admin: 07/11/17 11:10 Dose: Not Given Lab - Result Diagrams 07/13/17 04:15 07/13/17 04:15 Kidney fnc improved w/ BUN/CR of 26/0.9 replace K, MG continue hydration D5W @ 70 ml/hr + Kcl 40 meq/hr sudden improvement in WBC on Levo 7 meq CXR still w/ b/l infiltrates continue ABx thrombocytopenia 2/2 sepsis, DIC, meds Nutritional Asmnt/Malnutr-PDOC - Dietary Evaluation Malnutrition Findings (Please click <Entered> for more info): Nutritional Asmnt/Malnutrition Start: 07/11/17 14: 59 Text: Status: Complete Freq: Document 07/11/17 15:00 HEN (Rec: 07/11/17 15:15 LCHENG [email or web address]) Nutritional Asmnt/Malnutrition Patient General Information Nutritional Screening High Risk Diagnosis hypoxemia, respiratory disress , ARF Pertinent Medical Hx/Surgical Hx CVA, paralysis, seizure, heart disease Subjective Information Consult received on Ashish score 12. Pt seen resting in bed at time of visit, awake, on O2 mask. RN reported pt was choking on [facility] soft chopped diet, tolerating thin liquid. Current Diet Order/ Nutrition Support [facility] soft chopped, cardiac diet Pertinent Medications levaquin, remeron, protonix, piperacillin, vancomycin Pertinent Labs 3/5 Na 154, K 2.7, Cl 125, BUN 57, Cr 1.3, Glucose 175, Ca 8 .5 Nutritional Hx/Data Height 1.73 m Height (Calculated Centimeters) 172.7 Current Weight (lbs) 49.895 kg Weight (Calculated Kilograms) 49.9 Weight (Calculated Grams) 46741.2 [place] Body Weight 154 Body Mass Index (BMI) 16.7 Weight Status Underweight GI Symptoms GI Symptoms None Last BM 3/5 Difficult in: Chewing Skin Integrity/Comment: reddeded to back discoloered to right let/thigh , right hand/forearm, right upper extremity, right upper extremity and head pressure area to cyccyx/sacral and right hip Estimated Nutritional Goals Calories/Kcals/Kg 25-30 based on IBW 70kg Kcals Calculated 7349-6247 Protein g/k-1.2 monitor renal labs Protein Calculated 70-84 Fluid: ml 1750-2100ml Nutritional Problem 2. Problem Problem altered nutrition related lab values Etiology imbalanced electrolytes/fluid, CHRISTIAN, endocrine dysfunction Signs/Symptoms: Na 154, K 2.7, Cl 125, BUN 57, Glucose 175 1. Problem Problem chewing difficulty Etiology weakness Signs/Symptoms: pt choking on [facility] soft chopped diet Intervention/Recommendation Comments 1. Modify diet to [facility] soft ground cardiac diet. If PO intake low, will consider nutrition supplement. RN notified. 2. Monitor PO intake, wt, labs and skin integrity 3. F/U as high risk in 2-3 days, 07/13-07/14 Expected Outcomes/Goals Expected Outcomes/Goals 1. PO intake to meet at least 75% of nutritional needs. 2. Wt stability, skin to remain intact, labs to approach WNL.
[2017-07-13] MEDS: Atorvastatin Calcium 10 MG TAB PO SCH (20:23)
--- NOTE | 2017-07-14 01:21 | Progress Notes ---
DATE: UROLOGY FOLLOWUP The patient remains in the ICU on 8 mcg of dopamine, but mentally has improved and pulmonary status has also improved. He is making plenty of urine 2 liters recorded and there is no blood. PHYSICAL EXAMINATION: VITAL SIGNS: On exam, he is on BiPAP on FIO2 of 70%, saturating quite well. Blood pressure 105/75, temperature 99, heart rate 102, respirations 31. ABDOMEN: Soft, nontender and nondistended. EXTREMITIES: Contracted with hemiplegia. Sena catheter, no blood. No edema. LABORATORY DATA: Platelets 33. Vancomycin was stopped to help with the count. White count 14.3, creatinine 0.9. Potassium 2.7, being replaced. Chest x-ray showed PICC line in satisfactory position and bilateral infiltrates, slightly improved. IMPRESSION: Septic shock secondary to bilateral pneumonia, now off the ventilator and improving slowly. He is getting antibiotics with a PICC line. Altered level of consciousness, improved, now answer simple questions. History of contractures and stroke, chronic, no change. His intake remains poor. He has significant malnutrition as well. JOB# [id number]
[2017-07-14] MEDS: Albuterol/Ipratropium Neb 3 ML AERS HHN SCH ×6 (03:10→22:23)
[2017-07-14 04:54] LABS: HEMATOCRIT 35.7 % (41.0-60); MANUAL DIFF REQUIRED? YES; MEAN CELL VOLUME 83.7 fl (80-99); MEAN CORPUSCULAR HEMOGLOBIN 28.2 pg (27.0-31.0); MEAN CORPUSCULAR HGB CONC 33.7 pg (28.0-36.0); MEAN PLATELET VOLUME 9.5 fl; PLATELET COUNT 51 Th/cmm (150-400); RED BLOOD COUNT 4.27 Mil/cmm (3.80-5.80); RED CELL DISTRIBUTION WIDTH 14.7 % (11.5-20.0)
[2017-07-14] MEDS: metroNIDAZOLE 500mg/NS 100mL 500 MG/100 ML BAG IV SCH ×3 (04:55→21:31)
[2017-07-14 05:05] LABS: WHITE BLOOD COUNT 12.4 Th/cmm (4.8-10.8)
[2017-07-14 05:09] LABS: ALB/GLOB RATIO 0.7 (1.0-1.8); ALBUMIN 2.1 gm/dL (4.2-5.5); ALKALINE PHOSPHATASE 71 U/L (34-104); ANION GAP 10.6 (7.0-16.0); BILIRUBIN,TOTAL 1.1 mg/dL (0.3-1.0); BUN - UREA NITROGEN 30 mg/dL (7-25); CALCIUM SERUM 8.5 mg/dL (8.6-10.3); CARBON DIOXIDE 19.4 mEq/L (21.0-31.0); CHLORIDE 118 mEq/L (98-107); CREATININE - SERUM 1.1 mg/dL (0.7-1.3); GLUCOSE 142 mg/dL (70-105); MAGNESIUM 1.9 mg/dL (1.9-2.7); SGOT 23 U/L (13-39); SGPT/ALT 38 U/L (7-52); SODIUM SERUM 145 mEq/L (136-145); TOTAL PROTEIN,SERUM 5.2 gm/dL (6.0-8.3)
[2017-07-14 06:57] LABS: BAND NEUTROPHILE 9 % (0-10); LYMPHOCYTE 2 % (20-50); NEUTROPHILS 89 % (40-80); TOTAL CELLS COUNTED 100
[2017-07-14 06:58] LABS: PLATELET ESTIMATE DECREASED PLATELETS (NORMAL)
--- NOTE | 2017-07-14 09:13 | Diagnostic Imaging Report ---
CHEST X-RAY: AP view INDICATION: Shortness of breath COMPARISON: 07/13/2017 FINDINGS: Right-sided PICC line is stable. Congestive changes seen with persistent bibasal infiltrates right greater left. No effusions. Heart size is normal. IMPRESSION: Congestive changes persist and bibasal infiltrates, right greater than left.
[2017-07-14] MEDS: Polyvinyl Alcohol Ophth Soln 15 mL Bottle EACH EYE SCH (09:34)
[2017-07-14 09:56] LABS: pH 7.45 (7.35-7.45)
[2017-07-14 09:57] LABS: ALLEN TEST YES
[2017-07-14] MEDS: Levofloxacin 500mg/100mL 500 MG/100 ML BAG IV SCH (10:00)
[2017-07-14] MEDS ORDERED: Sodium Bicarbonate 8.4% 50mEq PFS IVP ONE (10:22)
[2017-07-14] MEDS: KCL 20mEq/100mL Premix 20 MEQ/100 ML PIGGYBACK IV SCH ×2 (10:28→12:28)
--- NOTE | 2017-07-14 13:06 | General Progress Note ---
Subjective - Review of Systems Service Date: 07/14/17 Subjective: eyes barely open, on BIPAP Objective - Results Result Diagrams: 07/14/17 04:20 07/14/17 04:20 Recent Labs: Laboratory Last Values WBC 12.4 Th/cmm (4.8-10.8) H 07/14/17 04:20 RBC 4.27 Mil/cmm (3.80-5.80) 07/14/17 04:20 Hgb 12.0 gm/dL (12-16) 07/14/17 04:20 Hct 35.7 % (41.0-60) L 07/14/17 04:20 MCV 83.7 fl (80-99) 07/14/17 04:20 MCH 28.2 pg (27.0-31.0) 07/14/17 04:20 MCHC Differential 33.7 pg (28.0-36.0) 07/14/17 04:20 RDW 14.7 % (11.5-20.0) 07/14/17 04:20 Plt Count 51 Th/cmm (150-400) L 07/14/17 04:20 MPV 9.5 fl 07/14/17 04:20 Neutrophils % 95.3 % (40.0-80.0) H 07/12/17 04:40 Band Neutrophils % 9 % (0-10) 07/14/17 04:20 Lymphocytes % 2.1 % (20.0-50.0) L 07/12/17 04:40 Monocytes % 2.5 % (2.0-10.0) 07/12/17 04:40 Eosinophils % 0.1 % (0.0-5.0) 07/12/17 04:40 Basophils % 0.0 % (0.0-2.0) 07/12/17 04:40 Neutrophils (Manual) 89 % (40-80) H 07/14/17 04:20 Lymphocytes 2 % (20-50) L 07/14/17 04:20 Monocytes 2 % (2-10) 07/13/17 04:15 Eosinophils 0 % (0-5) 07/11/17 14:14 Basophils 0 % (0-3) 07/11/17 14:14 Platelet Estimate DECREASED PLATELETS (NORMAL) 07/14/17 04:20 Eos Smear Source URINE 07/11/17 07:45 Eos Smear Total Cells NONE SEEN (NONE SEEN) 07/11/17 07:45 PT 21.9 SECONDS (9.5-11.5) H 07/13/17 04:15 INR 2.03 (0.5-1.4) H 07/13/17 04:15 PTT (Actin FS) 47.0 SECONDS (26.0-38.0) H 07/14/17 04:20 D-Dimer 4700 ng/mL (100-400) H 07/10/17 04:10 Specimen Source Arterial 07/14/17 09:40 Sample Site Right Radial 07/14/17 09:40 pH 7.45 (7.35-7.45) 07/14/17 09:40 pCO2 26.0 mmHg (35.0-45.0) L 07/14/17 09:40 pO2 83.0 mmHg (80.0-100.0) 07/14/17 09:40 HCO3 21.4 mEq/L (20.0-26.0) 07/14/17 09:40 Base Excess -4.5 mEq/L (-3.0-3.0) L 07/14/17 09:40 O2 Saturation 97.0 % (92.0-100.0) 07/14/17 09:40 Timothy Test YES 07/14/17 09:40 Vent Rate 12 07/14/17 09:40 Inspired O2 50 07/14/17 09:40 Tidal Volume NA 07/14/17 09:40 PEEP NA 07/14/17 09:40 Pressure (ins/psv/peep) 6 07/14/17 09:40 Critical Value E.ROD 07/14/17 09:40 Sodium 145 mEq/L (136-145) 07/14/17 04:20 Potassium 3.0 mEq/L (3.5-5.1) L 07/14/17 04:20 Chloride 118 mEq/L (98-107) H 07/14/17 04:20 Carbon Dioxide 19.4 mEq/L (21.0-31.0) L 07/14/17 04:20 Anion Gap 10.6 (7.0-16.0) 07/14/17 04:20 BUN 30 mg/dL (7-25) H 07/14/17 04:20 Creatinine 1.1 mg/dL (0.7-1.3) 07/14/17 04:20 Est GFR ( Amer) TNP 07/14/17 04:20 Est GFR (Non-Af Amer) TNP 07/14/17 04:20 BUN/Creatinine Ratio 27.3 07/14/17 04:20 Glucose 142 mg/dL (70-105) H 07/14/17 04:20 Whole Bld Lactic Acid 2.18 mmol/L (0.60-1.99) H* 07/12/17 08:20 Uric Acid 6.0 mg/dL (4.4-7.6) 07/11/17 04:20 Calcium 8.5 mg/dL (8.6-10.3) L 07/14/17 04:20 Phosphorus 2.6 mg/dL (2.5-5.0) 07/11/17 04:20 Magnesium 1.9 mg/dL (1.9-2.7) 07/14/17 04:20 Total Bilirubin 1.1 mg/dL (0.3-1.0) H 07/14/17 04:20 AST 23 U/L (13-39) 07/14/17 04:20 ALT 38 U/L (7-52) 07/14/17 04:20 Alkaline Phosphatase 71 U/L (34-104) 07/14/17 04:20 Troponin I 0.03 ng/mL (0.01-0.05) 07/09/17 19:48 B-Natriuretic Peptide 431.0 pg/mL (5.0-100.0) H 07/13/17 04:15 Total Protein 5.2 gm/dL (6.0-8.3) L 07/14/17 04:20 Albumin 2.1 gm/dL (4.2-5.5) L 07/14/17 04:20 Globulin 3.1 gm/dL 07/14/17 04:20 Albumin/Globulin Ratio 0.7 (1.0-1.8) L 07/14/17 04:20 Triglycerides 120 mg/dL (<150) 07/10/17 04:10 Cholesterol 48 mg/dL (<200) 07/10/17 04:10 LDL Cholesterol Direct 13 mg/dL (75-193) L 07/10/17 04:10 HDL Cholesterol 18 mg/dL (23-92) L 07/10/17 04:10 TSH 2.64 uIU/ml (0.34-5.60) 07/10/17 04:10 Urine Source ANSARI PORT 07/11/17 07:45 Urine Color YELLOW 07/11/17 07:45 Urine Clarity HAZY (CLEAR) 07/11/17 07:45 Urine pH 5.5 (4.6 - 8.0) 07/11/17 07:45 Ur Specific [place] 1.010 (1.005-1.030) 07/11/17 07:45 Urine Protein TRACE mg/dL (NEGATIVE) 07/11/17 07:45 Urine Glucose (UA) NEGATIVE mg/dL (NEGATIVE) 07/11/17 07:45 Urine Ketones NEGATIVE mg/dL (NEGATIVE) 07/11/17 07:45 Urine Blood SMALL (NEGATIVE) H 07/11/17 07:45 Urine Nitrate NEGATIVE (NEGATIVE) 07/11/17 07:45 Urine Bilirubin NEGATIVE (NEGATIVE) 07/11/17 07:45 Urine Urobilinogen 0.2 E.U./dL (0.2 - 1.0) 07/11/17 07:45 Ur Leukocyte Esterase TRACE (NEGATIVE) H 07/11/17 07:45 Urine RBC 0-2 /hpf (0-5) H 07/11/17 07:45 Urine WBC 2-5 /hpf (0-5) 07/11/17 07:45 Ur Epithelial Cells FEW /lpf (FEW) 07/11/17 07:45 Amorphous Sediment MODERATE PHOSPHATES (NONE SEEN) 07/11/17 02:35 Urine Bacteria FEW /hpf (NONE SEEN) 07/11/17 07:45 Fine Granular Casts 5-10 /lpf (NONE SEEN) H 07/11/17 02:35 Urine Osmolality 404 mOsmol/kg 07/11/17 02:35 Ur Random Sodium 88 mmol/L 07/11/17 07:45 Urine Creatinine 34.0 mg/dl (39.0-259.0) L 07/11/17 07:45 Vancomycin Trough 23.3 ug/mL (10-20) H 07/13/17 08:00 Random Vancomycin 22.3 ug/mL (5.0-40.0) 07/11/17 16:13 Levetiracetam 69.5 ug/mL (10.0-40.0) H 07/09/17 19:48 Ur L.pneumophila Ag Negative (Negative) 07/11/17 02:35 - Physical Exam Vitals and I&O: Vital Signs Temp 97.6 F 07/14/17 08:00 Pulse 96 07/14/17 11:30 Resp 26 07/14/17 11:00 BP 122/72 07/14/17 11:30 Pulse Ox 97 07/14/17 11:00 Intake & Output 07/13/17 07/14/17 07/14/17 18:59 06:59 18:59 Intake Total 187.016 5719.000 354 Output Total 800 Balance -848.064 4453.000 354 Weight (lbs) 55.962 kg Intake: Intake, IV Amount 556.192 9067.000 354 Cefepime 1 gm In Dextrose 50 100 5% 50 ml @ 100 mls/hr IV Q8HR [facility] Rx#:[id number] KCL 20mEq/100mL Premix 20 100 meq In 100 ml @ 50 mls/ hr IV Q2H [facility] Rx#: [id number] Levofloxacin 500mg/100mL 100 500 mg In 100 ml @ 100 mls/hr IV Q24HR [facility] Rx#: [id number] Norepinephrine 4 mg In 190.246 254.000 254 Sodium Chloride 0.9% 250 ml @ 0 MCG/MIN IV TITR PRN Rx#:[id number] Potassium Chloride 40 meq 1020 In Dextrose 5% 1,000 ml @ 70 mls/hr IV .[id number] [facility] Rx#:[id number] metroNIDAZOLE 500mg/NS 100 200 100mL 500 mg In 100 ml @ 100 mls/hr IV Q8HR [facility] Rx #:[id number] Oral 150 Output: Urine 800 Other: # Bowel Movements 2 Stool Characteristics Soft Liquid Liquid Brown Brown Green Green Active Medications: Current Medications Acetaminophen (Tylenol) 650 mg PO Q6HR PRN PRN Reason: Pain or Fever >101 Stop: 09/09/17 09:12 Last Admin: 07/13/17 20:23 Dose: 650 mg Albuterol/Ipratropium (Duoneb Neb) 3 ml HHN Q4HRT [facility] Stop: 09/08/17 14:59 Last Admin: 07/14/17 08:13 Dose: 3 ml Artificial Tears (Artificial Tears Ophth Soln) 1 drop EACH EYE DAILY [facility] Stop: 09/09/17 10:59 Last Admin: 07/14/17 09:34 Dose: 1 drop Atorvastatin Calcium (Lipitor) 20 mg PO HS [facility] Stop: 09/09/17 20:59 Last Admin: 07/13/17 20:23 Dose: 20 mg Levofloxacin (Levaquin Pb) 500 mg in 100 mls @ 100 mls/hr IV Q24HR [facility] Stop: 09/09/17 07:59 Last Infusion: 07/13/17 09:10 Dose: Infused Metronidazole (Flagyl) 500 mg in 100 mls @ 100 mls/hr IV Q8HR [facility] Stop: 09/09/17 12:59 Last Infusion: 07/14/17 05:55 Dose: Infused Cefepime HCl 1 gm/ Dextrose 50 mls @ 100 mls/hr IV Q8HR [facility] Stop: 09/09/17 20:59 Last Infusion: 07/14/17 04:43 Dose: Infused Norepinephrine Bitartrate 4 mg (/ Sodium Chloride) 254 mls @ 0 mls/hr IV TITR PRN; Protocol; 0 MCG/MIN PRN Reason: BP MAINTENANCE (PER PROTOCOL) Stop: 09/11/17 09:59 Last Admin: 07/14/17 11:32 Dose: 8 mcg/min, 30.48 mls/hr Potassium Chloride (Potassium Chloride) 20 meq in 100 mls @ 50 mls/hr IV Q2H [facility] Stop: 07/14/17 13:14 Last Admin: 07/14/17 12:28 Dose: 50 mls/hr Potassium Chloride 40 meq/ (Dextrose) 1,020 mls @ 30 mls/hr IV .Q24H [facility] Stop: 09/12/17 13:01 Levetiracetam (Keppra) 750 mg PO Q12HR [facility] Stop: 09/09/17 09:59 Last Admin: 07/14/17 09:34 Dose: 750 mg Magnesium Hydroxide (Milk Of Magnesia) 30 ml PO HS PRN PRN Reason: Constipation Stop: 09/09/17 09:12 Methylprednisolone Sodium Succinate (Solu-Medrol) 40 mg IV Q6HR [facility] Stop: 09/11/17 17:59 Last Admin: 07/14/17 06:09 Dose: 40 mg Mirtazapine (Remeron) 7.5 mg PO HS [facility] Stop: 09/09/17 20:59 Pantoprazole Sodium (Protonix) 40 mg IVP DAILY [facility] Stop: 09/09/17 09:59 Last Admin: 07/14/17 09:34 Dose: 40 mg Sertraline HCl (Zoloft) 25 mg PO DAILY [facility] PRN Reason: Protocol Stop: 09/09/17 09:14 Last Admin: 07/14/17 09:33 Dose: 25 mg Sucralfate (Carafate) 1 gm PO ACHS [facility] Stop: 09/09/17 11:29 Last Admin: 07/14/17 09:34 Dose: 1 gm Zolpidem Tartrate (Ambien) 5 mg PO HS PRN PRN Reason: Insomnia Stop: 09/09/17 20:59 Last Admin: 07/11/17 20:48 Dose: 5 mg General: Mild distress HEENT: Atraumatic, EOMI Neck: Supple, +2 carotid pulse wo bruit Cardiovascular: Regular rate, Normal S1, Normal S2 Lungs: Other (scattered rhonchi) Abdomen: Bowel sounds, Soft Extremities: Other (severely contracted), no Edema Neurological: Sensation intact Skin: no Rash Psych/Mental Status: Mood NL Assessment/Plan - Assessment Assessment: CHRISTIAN S/P CVA Left Hemiparesis CAD Shock 2/2 Sepsis Sepsis: HAP Severe Malnutrition Severe Contractures acute decomp CHF - Plan Plan: Lab - Result Diagrams 07/11/17 04:20 07/11/17 04:20 Current Medications Acetaminophen (Tylenol) 650 mg PO Q6HR PRN PRN Reason: Pain or Fever >101 Stop: 09/09/17 09:12 Albuterol/Ipratropium (Duoneb Neb) 3 ml HHN Q4HRT [facility] Stop: 09/08/17 14:59 Last Admin: 07/11/17 12:15 Dose: 3 ml Artificial Tears (Artificial Tears Ophth Soln) 1 drop EACH EYE DAILY [facility] Stop: 09/09/17 10:59 Last Admin: 07/11/17 12:54 Dose: 1 drop Atorvastatin Calcium (Lipitor) 20 mg PO HS [facility] Stop: 09/09/17 20:59 Norepinephrine Bitartrate 4 mg (/ Dextrose) 254 mls @ 30.48 mls/hr IV TITR PRN ; Protocol; 8 MCG/MIN PRN Reason: BP MAINTENANCE (PER PROTOCOL) Stop: 09/08/17 02:02 Last Admin: 07/11/17 12:28 Dose: 7 mcg/min, 26.67 mls/hr Heparin Sodium/Dextrose (Heparin Drip) 25,000 units in 250 mls @ 0 mls/hr IV TITR PRN; Protocol; 0 UNITS/HR PRN Reason: PROTOCOL Stop: 09/08/17 02:36 Last Titration: 07/10/17 14:30 Dose: 0 units/hr, 0 mls/hr Vancomycin HCl 1 gm/ Sodium (Chloride) 250 mls @ 165 mls/hr IV Q24H [facility] Stop: 09/08/17 11:29 Last Infusion: 07/11/17 12:25 Dose: Infused Levofloxacin (Levaquin Pb) 500 mg in 100 mls @ 100 mls/hr IV Q24HR [facility] Stop: 09/09/17 07:59 Last Infusion: 07/11/17 09:45 Dose: Infused Piperacillin Sod/Tazobactam (Sod 4.5 gm/ Sodium Chloride) 50 mls @ 100 mls/hr IV Q8HR [facility] Stop: 09/08/17 17:37 Last Infusion: 07/11/17 12:40 Dose: Infused Potassium Chloride 10 meq/ (Dextrose) 1,005 mls @ 125 mls/hr IV .Q8H3M [facility] Stop: 09/09/17 09:14 Last Admin: 07/11/17 10:00 Dose: 125 mls/hr Metronidazole (Flagyl) 500 mg in 100 mls @ 100 mls/hr IV Q8HR [facility] Stop: 09/09/17 12:59 Last Infusion: 07/11/17 13:30 Dose: Infused Levetiracetam (Keppra) 750 mg PO Q12HR [facility] Stop: 09/09/17 09:59 Last Admin: 07/11/17 10:00 Dose: Not Given Magnesium Hydroxide (Milk Of Magnesia) 30 ml PO HS PRN PRN Reason: Constipation Stop: 09/09/17 09:12 Mirtazapine (Remeron) 7.5 mg PO HS [facility] Stop: 09/09/17 20:59 Pantoprazole Sodium (Protonix) 40 mg IVP DAILY [facility] Stop: 09/09/17 09:59 Last Admin: 03/05/18 12:54 Dose: 40 mg Sertraline HCl (Zoloft) 25 mg PO DAILY [facility] PRN Reason: Protocol Stop: 09/09/17 09:14 Sucralfate (Carafate) 1 gm PO ACHS [facility] Stop: 09/09/17 11:29 Last Admin: 07/11/17 11:10 Dose: Not Given Lab - Result Diagrams 07/14/17 04:20 07/14/17 04:20 Kidney fnc improved w/ BUN/CR of 30/1.1 replace K, MG continue hydration D5W+ Kcl 40 meq/hr but decrease to 30ml/hr due to progressive CHF sudden improvement in WBC on Levo 6 meq CXR still w/ b/l infiltrates continue ABx thrombocytopenia 2/2 sepsis, DIC, meds administer 1 dose of Kasix Nutritional Asmnt/Malnutr-PDOC - Dietary Evaluation Malnutrition Findings (Please click <Entered> for more info): Nutritional Asmnt/Malnutrition Start: 07/11/17 14: 59 Text: Status: Complete Freq: Document 07/11/17 15:00 SHIRA (Rec: 07/11/17 15:15 LCHEN [email or web address]) Nutritional Asmnt/Malnutrition Patient General Information Nutritional Screening High Risk Diagnosis hypoxemia, respiratory disress , ARF Pertinent Medical Hx/Surgical Hx CVA, paralysis, seizure, heart disease Subjective Information Consult received on Ashish score 12. Pt seen resting in bed at time of visit, awake, on O2 mask. RN reported pt was choking on [facility] soft chopped diet, tolerating thin liquid. Current Diet Order/ Nutrition Support [facility] soft chopped, cardiac diet Pertinent Medications levaquin, remeron, protonix, piperacillin, vancomycin Pertinent Labs 3/5 Na 154, K 2.7, Cl 125, BUN 57, Cr 1.3, Glucose 175, Ca 8 .5 Nutritional Hx/Data Height 1.73 m Height (Calculated Centimeters) 172.7 Current Weight (lbs) 49.895 kg Weight (Calculated Kilograms) 49.9 Weight (Calculated Grams) 31859.2 [place] Body Weight 154 Body Mass Index (BMI) 16.7 Weight Status Underweight GI Symptoms GI Symptoms None Last BM 3/5 Difficult in: Chewing Skin Integrity/Comment: reddeded to back discoloered to right let/thigh , right hand/forearm, right upper extremity, right upper extremity and head pressure area to cyccyx/sacral and right hip Estimated Nutritional Goals Calories/Kcals/Kg 25-30 based on IBW 70kg Kcals Calculated 2521-7896 Protein g/k-1.2 monitor renal labs Protein Calculated 70-84 Fluid: ml 1750-2100ml Nutritional Problem 2. Problem Problem altered nutrition related lab values Etiology imbalanced electrolytes/fluid, CHRISTIAN, endocrine dysfunction Signs/Symptoms: Na 154, K 2.7, Cl 125, BUN 57, Glucose 175 1. Problem Problem chewing difficulty Etiology weakness Signs/Symptoms: pt choking on [facility] soft chopped diet Intervention/Recommendation Comments 1. Modify diet to [facility] soft ground cardiac diet. If PO intake low, will consider nutrition supplement. RN notified. 2. Monitor PO intake, wt, labs and skin integrity 3. F/U as high risk in 2-3 days, 07/13-07/14 Expected Outcomes/Goals Expected Outcomes/Goals 1. PO intake to meet at least 75% of nutritional needs. 2. Wt stability, skin to remain intact, labs to approach WNL.
[2017-07-14 15:16] LABS: MICROALBUMIN RANDOM RUINE 61.5 ug/mL (Not Estab.)
[2017-07-14] MEDS: Atorvastatin Calcium 10 MG TAB PO SCH (20:50)
--- NOTE | 2017-07-14 22:11 | Progress Notes ---
DATE: UROLOGY FOLLOWUP SUBJECTIVE: The patient is stable with no significant change, tolerating his breathing treatments and diet as well. He remains on 8 mics of Levophed. PHYSICAL EXAMINATION: VITAL SIGNS: Temperature 98.7, heart rate 89, blood pressure 120/67. ABDOMEN: Soft, nondistended. No masses. EXTREMITIES: No edema. Sena catheter draining well with clear urine. LABORATORY DATA: White count 12.4, hemoglobin 12.0, platelets decreased to 51. Potassium 3, BUN 30, creatinine 1.1. Urine culture, no growth. Blood cultures were also negative. IMPRESSION: 1. Respiratory failure from pneumonia, now extubated, on BiPAP. 2. Urinary retention. We will get a trial of voiding when little more strong and ambulatory. 3. Septic shock, remains on Levophed, small doses. 4. History of a stroke. No change. 5. Decubitus with contractures, stable. 6. Malnutrition. 7. Hyperlipidemia, no significant improvement. [facility]# [id number]
[2017-07-15] MEDS: Albuterol/Ipratropium Neb 3 ML AERS HHN SCH ×6 (02:27→22:52)
[2017-07-15 04:46] LABS: HEMATOCRIT 33.6 % (41.0-60); HEMOGLOBIN 11.6 gm/dL (12-16); MANUAL DIFF REQUIRED? YES; MEAN CELL VOLUME 82.4 fl (80-99); MEAN CORPUSCULAR HEMOGLOBIN 28.4 pg (27.0-31.0); MEAN CORPUSCULAR HGB CONC 34.5 pg (28.0-36.0); MEAN PLATELET VOLUME 9.3 fl; PLATELET COUNT 85 Th/cmm (150-400); RED BLOOD COUNT 4.07 Mil/cmm (3.80-5.80); RED CELL DISTRIBUTION WIDTH 14.8 % (11.5-20.0); WHITE BLOOD COUNT 10.3 Th/cmm (4.8-10.8)
[2017-07-15 05:08] LABS: ALB/GLOB RATIO 0.7 (1.0-1.8); ALBUMIN 2.1 gm/dL (4.2-5.5); ALKALINE PHOSPHATASE 63 U/L (34-104); ANION GAP 8.4 (7.0-16.0); BILIRUBIN,TOTAL 0.8 mg/dL (0.3-1.0); BUN - UREA NITROGEN 43 mg/dL (7-25); CALCIUM SERUM 8.5 mg/dL (8.6-10.3); CARBON DIOXIDE 19.5 mEq/L (21.0-31.0); CHLORIDE 120 mEq/L (98-107); CREATININE - SERUM 1.1 mg/dL (0.7-1.3); GLUCOSE 112 mg/dL (70-105); MAGNESIUM 1.9 mg/dL (1.9-2.7); SGOT 21 U/L (13-39); SGPT/ALT 30 U/L (7-52); SODIUM SERUM 145 mEq/L (136-145); TOTAL PROTEIN,SERUM 5.1 gm/dL (6.0-8.3)
[2017-07-15 05:13] LABS: POTASSIUM SERUM 2.9 mEq/L (3.5-5.1)
[2017-07-15 05:16] LABS: BAND NEUTROPHILE 2 % (0-10); LYMPHOCYTE 4 % (20-50); NEUTROPHILS 94 % (40-80); TOTAL CELLS COUNTED 100
[2017-07-15 05:17] LABS: BURR CELLS 1+; PLATELET ESTIMATE SLIGHT DECREASED (NORMAL)
[2017-07-15] MEDS: metroNIDAZOLE 500mg/NS 100mL 500 MG/100 ML BAG IV SCH ×3 (05:25→20:35)
[2017-07-15] MEDS ORDERED: KCL 20mEq/100mL Premix 20 MEQ/100 ML PIGGYBACK IV ONE ×2 (08:20→13:45)
[2017-07-15] MEDS: KCL 20mEq/100mL Premix 20 MEQ/100 ML PIGGYBACK IV SCH ×2 (08:39→10:04)
--- NOTE | 2017-07-15 08:41 | Diagnostic Imaging Report ---
CHEST X-RAY: AP view INDICATION: Pneumonia respiratory failure COMPARISON: 07/14/2017 FINDINGS: Right PICC line is stable. Bibasal infiltrates are seen with slight improvement in right basal infiltrates. Heart size normal. IMPRESSION: Bibasal infiltrates with overall slight improvement in right basal infiltrate/pneumonia.
[2017-07-15] MEDS: Polyvinyl Alcohol Ophth Soln 15 mL Bottle EACH EYE SCH (09:00)
[2017-07-15] MEDS: Levofloxacin 500mg/100mL 500 MG/100 ML BAG IV SCH (10:04)
[2017-07-15] MEDS: Amino Acids 3% / Electrolytes 1,000 ML IV SCH (15:25)
[2017-07-15] MEDS: Dextrose 5% 500 ML IV SCH (15:32)
[2017-07-15] MEDS ORDERED: Sodium Bicarbonate 8.4% 50mEq PFS IVP ONE (16:04)
--- NOTE | 2017-07-15 17:01 | General Progress Note ---
Subjective - Review of Systems Service Date: 07/15/17 Subjective: eyes barely open, on BIPAP Objective - Results Result Diagrams: 07/15/17 04:39 07/15/17 04:39 Recent Labs: Laboratory Last Values WBC 10.3 Th/cmm (4.8-10.8) 07/15/17 04:39 RBC 4.07 Mil/cmm (3.80-5.80) 07/15/17 04:39 Hgb 11.6 gm/dL (12-16) L 07/15/17 04:39 Hct 33.6 % (41.0-60) L 07/15/17 04:39 MCV 82.4 fl (80-99) 07/15/17 04:39 MCH 28.4 pg (27.0-31.0) 07/15/17 04:39 MCHC Differential 34.5 pg (28.0-36.0) 07/15/17 04:39 RDW 14.8 % (11.5-20.0) 07/15/17 04:39 Plt Count 85 Th/cmm (150-400) L 07/15/17 04:39 MPV 9.3 fl 07/15/17 04:39 Neutrophils % 95.3 % (40.0-80.0) H 07/12/17 04:40 Band Neutrophils % 2 % (0-10) 07/15/17 04:39 Lymphocytes % 2.1 % (20.0-50.0) L 07/12/17 04:40 Monocytes % 2.5 % (2.0-10.0) 07/12/17 04:40 Eosinophils % 0.1 % (0.0-5.0) 07/12/17 04:40 Basophils % 0.0 % (0.0-2.0) 07/12/17 04:40 Neutrophils (Manual) 94 % (40-80) H 07/15/17 04:39 Lymphocytes 4 % (20-50) L 07/15/17 04:39 Monocytes 2 % (2-10) 07/13/17 04:15 Eosinophils 0 % (0-5) 07/11/17 14:14 Basophils 0 % (0-3) 07/11/17 14:14 Platelet Estimate SLIGHT DECREASED (NORMAL) 07/15/17 04:39 Andi Cells 1+ 07/15/17 04:39 Eos Smear Source URINE 07/11/17 07:45 Eos Smear Total Cells NONE SEEN (NONE SEEN) 07/11/17 07:45 PT 21.9 SECONDS (9.5-11.5) H 07/13/17 04:15 INR 2.03 (0.5-1.4) H 07/13/17 04:15 PTT (Actin FS) 39.4 SECONDS (26.0-38.0) H 07/15/17 04:39 D-Dimer 4700 ng/mL (100-400) H 07/10/17 04:10 Specimen Source Arterial 07/14/17 09:40 Sample Site Right Radial 07/14/17 09:40 pH 7.45 (7.35-7.45) 07/14/17 09:40 pCO2 26.0 mmHg (35.0-45.0) L 07/14/17 09:40 pO2 83.0 mmHg (80.0-100.0) 07/14/17 09:40 HCO3 21.4 mEq/L (20.0-26.0) 07/14/17 09:40 Base Excess -4.5 mEq/L (-3.0-3.0) L 07/14/17 09:40 O2 Saturation 97.0 % (92.0-100.0) 07/14/17 09:40 Timothy Test YES 07/14/17 09:40 Vent Rate 12 07/14/17 09:40 Inspired O2 50 07/14/17 09:40 Tidal Volume NA 07/14/17 09:40 PEEP NA 07/14/17 09:40 Pressure (ins/psv/peep) 6 07/14/17 09:40 Critical Value E.ROD 07/14/17 09:40 Sodium 145 mEq/L (136-145) 07/15/17 04:39 Potassium 2.9 mEq/L (3.5-5.1) L* 07/15/17 04:39 Chloride 120 mEq/L (98-107) H 07/15/17 04:39 Carbon Dioxide 19.5 mEq/L (21.0-31.0) L 07/15/17 04:39 Anion Gap 8.4 (7.0-16.0) 07/15/17 04:39 BUN 43 mg/dL (7-25) H 07/15/17 04:39 Creatinine 1.1 mg/dL (0.7-1.3) 07/15/17 04:39 Est GFR ( Amer) TNP 07/15/17 04:39 Est GFR (Non-Af Amer) TNP 07/15/17 04:39 BUN/Creatinine Ratio 39.1 07/15/17 04:39 Glucose 112 mg/dL (70-105) H 07/15/17 04:39 Whole Bld Lactic Acid 1.24 mmol/L (0.60-1.99) 07/15/17 04:39 Uric Acid 6.0 mg/dL (4.4-7.6) 07/11/17 04:20 Calcium 8.5 mg/dL (8.6-10.3) L 07/15/17 04:39 Phosphorus 2.6 mg/dL (2.5-5.0) 07/11/17 04:20 Magnesium 1.9 mg/dL (1.9-2.7) 07/15/17 04:39 Total Bilirubin 0.8 mg/dL (0.3-1.0) 07/15/17 04:39 AST 21 U/L (13-39) 07/15/17 04:39 ALT 30 U/L (7-52) 07/15/17 04:39 Alkaline Phosphatase 63 U/L (34-104) 07/15/17 04:39 Troponin I 0.03 ng/mL (0.01-0.05) 07/09/17 19:48 B-Natriuretic Peptide 431.0 pg/mL (5.0-100.0) H 07/13/17 04:15 Total Protein 5.1 gm/dL (6.0-8.3) L 07/15/17 04:39 Albumin 2.1 gm/dL (4.2-5.5) L 07/15/17 04:39 Globulin 3.0 gm/dL 07/15/17 04:39 Albumin/Globulin Ratio 0.7 (1.0-1.8) L 07/15/17 04:39 Triglycerides 120 mg/dL (<150) 07/10/17 04:10 Cholesterol 48 mg/dL (<200) 07/10/17 04:10 LDL Cholesterol Direct 13 mg/dL (75-193) L 07/10/17 04:10 HDL Cholesterol 18 mg/dL (23-92) L 07/10/17 04:10 TSH 2.64 uIU/ml (0.34-5.60) 07/10/17 04:10 Urine Source ANSARI PORT 07/11/17 07:45 Urine Color YELLOW 07/11/17 07:45 Urine Clarity HAZY (CLEAR) 07/11/17 07:45 Urine pH 5.5 (4.6 - 8.0) 07/11/17 07:45 Ur Specific [place] 1.010 (1.005-1.030) 07/11/17 07:45 Urine Protein TRACE mg/dL (NEGATIVE) 07/11/17 07:45 Urine Glucose (UA) NEGATIVE mg/dL (NEGATIVE) 07/11/17 07:45 Urine Ketones NEGATIVE mg/dL (NEGATIVE) 07/11/17 07:45 Urine Blood SMALL (NEGATIVE) H 07/11/17 07:45 Urine Nitrate NEGATIVE (NEGATIVE) 07/11/17 07:45 Urine Bilirubin NEGATIVE (NEGATIVE) 07/11/17 07:45 Urine Urobilinogen 0.2 E.U./dL (0.2 - 1.0) 07/11/17 07:45 Ur Leukocyte Esterase TRACE (NEGATIVE) H 07/11/17 07:45 Urine RBC 0-2 /hpf (0-5) H 07/11/17 07:45 Urine WBC 2-5 /hpf (0-5) 07/11/17 07:45 Ur Epithelial Cells FEW /lpf (FEW) 07/11/17 07:45 Amorphous Sediment MODERATE PHOSPHATES (NONE SEEN) 07/11/17 02:35 Urine Bacteria FEW /hpf (NONE SEEN) 07/11/17 07:45 Fine Granular Casts 5-10 /lpf (NONE SEEN) H 07/11/17 02:35 Urine Osmolality 404 mOsmol/kg 07/11/17 02:35 Ur Random Sodium 88 mmol/L 07/11/17 07:45 Urine Creatinine 34.0 mg/dl (39.0-259.0) L 07/11/17 07:45 Urine Microalbumin 61.5 ug/mL (Not Estab.) 07/11/17 02:35 Vancomycin Trough 8.3 ug/mL (10-20) L 07/15/17 08:06 Random Vancomycin 22.3 ug/mL (5.0-40.0) 07/11/17 16:13 Levetiracetam 69.5 ug/mL (10.0-40.0) H 07/09/17 19:48 Ur L.pneumophila Ag Negative (Negative) 07/11/17 02:35 - Physical Exam Vitals and I&O: Vital Signs Temp 98.5 F 07/15/17 04:00 Pulse 75 07/15/17 12:54 Resp 34 07/15/17 15:57 BP 100/60 07/15/17 06:45 Pulse Ox 94 07/15/17 15:57 Intake & Output 07/14/17 07/15/17 07/15/17 18:59 06:59 18:59 Intake Total 604 1138.036 498.684 Output Total 1250 Balance 604 -111.964 498.684 Weight (lbs) 54.431 kg Intake: Intake, IV Amount 604 1138.036 498.684 Cefepime 1 gm In Dextrose 50 100 50 5% 50 ml @ 100 mls/hr IV Q8HR [facility] Rx#:[id number] KCL 20mEq/100mL Premix 20 100 meq In 100 ml @ 50 mls/ hr IV Q2H [facility] Rx#: [id number] KCL 20mEq/100mL Premix 20 170.833 meq In 100 ml @ 50 mls/ hr IV Q2H [facility] Rx#: [id number] Levofloxacin 500mg/100mL 100 100 500 mg In 100 ml @ 100 mls/hr IV Q24HR [facility] Rx#: [id number] Norepinephrine 4 mg In 254 347.536 77.851 Sodium Chloride 0.9% 250 ml @ 0 MCG/MIN IV TITR PRN Rx#:[id number] Potassium Chloride 40 meq 490.5 In Dextrose 5% 1,000 ml @ 30 mls/hr IV .Q24H [facility] Rx#:[id number] metroNIDAZOLE 500mg/NS 100 200 100 100mL 500 mg In 100 ml @ 100 mls/hr IV Q8HR [facility] Rx #:[id number] Output: Urine 1250 Active Medications: Current Medications Acetaminophen (Tylenol 325mg Supp) 650 mg RC Q6H PRN PRN Reason: Pain or Fever >101 Stop: 09/13/17 15:58 Albuterol/Ipratropium (Duoneb Neb) 3 ml HHN Q4HRT [facility] Stop: 09/08/17 14:59 Last Admin: 07/15/17 15:57 Dose: 3 ml Artificial Tears (Artificial Tears Ophth Soln) 1 drop EACH EYE DAILY [facility] Stop: 09/09/17 10:59 Last Admin: 07/15/17 09:00 Dose: 1 drop Atorvastatin Calcium (Lipitor) 20 mg PO HS [facility] Stop: 09/09/17 20:59 Last Admin: 07/14/17 20:50 Dose: Not Given Levofloxacin (Levaquin Pb) 500 mg in 100 mls @ 100 mls/hr IV Q24HR [facility] Stop: 09/09/17 07:59 Last Infusion: 07/15/17 11:28 Dose: Infused Metronidazole (Flagyl) 500 mg in 100 mls @ 100 mls/hr IV Q8HR [facility] Stop: 09/09/17 12:59 Last Infusion: 07/15/17 15:26 Dose: Infused Cefepime HCl 1 gm/ Dextrose 50 mls @ 100 mls/hr IV Q8HR [facility] Stop: 09/09/17 20:59 Last Infusion: 07/15/17 15:27 Dose: Infused Norepinephrine Bitartrate 4 mg (/ Sodium Chloride) 254 mls @ 0 mls/hr IV TITR PRN; Protocol; 0 MCG/MIN PRN Reason: BP MAINTENANCE (PER PROTOCOL) Stop: 09/11/17 09:59 Last Titration: 07/15/17 11:28 Dose: 0 mcg/min, 0 mls/hr Amino Acids/Electrolytes (Procalamine) 1,000 mls @ 80 mls/hr IV .[id number] [facility] Stop: 09/13/17 14:59 Last Admin: 07/15/17 15:25 Dose: 80 mls/hr Dextrose (D5w) 500 mls @ 20 mls/hr IV Q24H [facility] Stop: 09/13/17 14:59 Last Admin: 07/15/17 15:32 Dose: 20 mls/hr Levetiracetam (Keppra) 750 mg PO Q12HR [facility] Stop: 09/09/17 09:59 Last Admin: 07/15/17 09:59 Dose: Not Given Magnesium Hydroxide (Milk Of Magnesia) 30 ml PO HS PRN PRN Reason: Constipation Stop: 09/09/17 09:12 Methylprednisolone Sodium Succinate (Solu-Medrol) 40 mg IV Q6HR [facility] Stop: 09/11/17 17:59 Last Admin: 07/15/17 12:51 Dose: 40 mg Mirtazapine (Remeron) 7.5 mg PO HS [facility] Stop: 09/09/17 20:59 Last Admin: 07/14/17 20:50 Dose: Not Given Miscellaneous (Tpn Per Pharmacy) 1 ea MC PRN PRN PRN Reason: PROTOCOL Stop: 09/13/17 12:33 Pantoprazole Sodium (Protonix) 40 mg IVP DAILY [facility] Stop: 09/09/17 09:59 Last Admin: 07/15/17 10:05 Dose: 40 mg Sertraline HCl (Zoloft) 25 mg PO DAILY [facility] PRN Reason: Protocol Stop: 09/09/17 09:14 Last Admin: 07/15/17 09:58 Dose: Not Given Sucralfate (Carafate) 1 gm PO ACHS [facility] Stop: 09/09/17 11:29 Last Admin: 07/15/17 14:52 Dose: Not Given Zolpidem Tartrate (Ambien) 5 mg PO HS PRN PRN Reason: Insomnia Stop: 09/09/17 20:59 Last Admin: 07/11/17 20:48 Dose: 5 mg General: Mild distress HEENT: Atraumatic, EOMI Neck: Supple, +2 carotid pulse wo bruit Cardiovascular: Regular rate, Normal S1, Normal S2 Lungs: Other (scattered rhonchi) Abdomen: Bowel sounds, Soft Extremities: Other (severely contracted), no Edema Neurological: Sensation intact Skin: no Rash Psych/Mental Status: Mood NL - Procedures Procedures: Procedures Procedure Code Date ASSISTANCE WITH RESPIRATORY VENTILATION, 24-96 HRS, CPAP [id number] 07/09/17 POS AIRWAY PRESSURE CPAP 94680 07/09/17 Assessment/Plan - Assessment Assessment: CHRISTIAN S/P CVA Left Hemiparesis CAD Shock 2/2 Sepsis Sepsis: HAP Severe Malnutrition Severe Contractures acute decomp CHF Acute Resp Failure on BIPAP - Plan Plan: Lab - Result Diagrams 07/11/17 04:20 07/11/17 04:20 Current Medications Acetaminophen (Tylenol) 650 mg PO Q6HR PRN PRN Reason: Pain or Fever >101 Stop: 09/09/17 09:12 Albuterol/Ipratropium (Duoneb Neb) 3 ml HHN Q4HRT [facility] Stop: 09/08/17 14:59 Last Admin: 07/11/17 12:15 Dose: 3 ml Artificial Tears (Artificial Tears Ophth Soln) 1 drop EACH EYE DAILY [facility] Stop: 09/09/17 10:59 Last Admin: 07/11/17 12:54 Dose: 1 drop Atorvastatin Calcium (Lipitor) 20 mg PO HS [facility] Stop: 09/09/17 20:59 Norepinephrine Bitartrate 4 mg (/ Dextrose) 254 mls @ 30.48 mls/hr IV TITR PRN ; Protocol; 8 MCG/MIN PRN Reason: BP MAINTENANCE (PER PROTOCOL) Stop: 09/08/17 02:02 Last Admin: 07/11/17 12:28 Dose: 7 mcg/min, 26.67 mls/hr Heparin Sodium/Dextrose (Heparin Drip) 25,000 units in 250 mls @ 0 mls/hr IV TITR PRN; Protocol; 0 UNITS/HR PRN Reason: PROTOCOL Stop: 09/08/17 02:36 Last Titration: 07/10/17 14:30 Dose: 0 units/hr, 0 mls/hr Vancomycin HCl 1 gm/ Sodium (Chloride) 250 mls @ 165 mls/hr IV Q24H [facility] Stop: 09/08/17 11:29 Last Infusion: 07/11/17 12:25 Dose: Infused Levofloxacin (Levaquin Pb) 500 mg in 100 mls @ 100 mls/hr IV Q24HR [facility] Stop: 09/09/17 07:59 Last Infusion: 07/11/17 09:45 Dose: Infused Piperacillin Sod/Tazobactam (Sod 4.5 gm/ Sodium Chloride) 50 mls @ 100 mls/hr IV Q8HR [facility] Stop: 09/08/17 17:37 Last Infusion: 07/11/17 12:40 Dose: Infused Potassium Chloride 10 meq/ (Dextrose) 1,005 mls @ 125 mls/hr IV .Q8H3M [facility] Stop: 09/09/17 09:14 Last Admin: 07/11/17 10:00 Dose: 125 mls/hr Metronidazole (Flagyl) 500 mg in 100 mls @ 100 mls/hr IV Q8HR [facility] Stop: 09/09/17 12:59 Last Infusion: 07/11/17 13:30 Dose: Infused Levetiracetam (Keppra) 750 mg PO Q12HR [facility] Stop: 09/09/17 09:59 Last Admin: 07/11/17 10:00 Dose: Not Given Magnesium Hydroxide (Milk Of Magnesia) 30 ml PO HS PRN PRN Reason: Constipation Stop: 09/09/17 09:12 Mirtazapine (Remeron) 7.5 mg PO HS [facility] Stop: 09/09/17 20:59 Pantoprazole Sodium (Protonix) 40 mg IVP DAILY [facility] Stop: 09/09/17 09:59 Last Admin: 07/11/17 12:54 Dose: 40 mg Sertraline HCl (Zoloft) 25 mg PO DAILY [facility] PRN Reason: Protocol Stop: 09/09/17 09:14 Sucralfate (Carafate) 1 gm PO ACHS [facility] Stop: 09/09/17 11:29 Last Admin: 07/11/17 11:10 Dose: Not Given Lab - Result Diagrams 07/15/17 04:39 07/15/17 04:39 Kidney fnc improved w/ BUN/CR of 43/1.1 replace K, MG decrease hydration @ 20 ml/hr ; Clinimix @ 50 ml/hr due to persistent CHF sudden improvement in WBC off Levo CXR still w/ b/l infiltrates continue ABx thrombocytopenia 2/2 sepsis, DIC, meds administer 1 dose of lasix Nutritional Asmnt/Malnutr-PDOC - Dietary Evaluation Malnutrition Findings (Please click <Entered> for more info): Nutritional Asmnt/Malnutrition Start: 07/11/17 14: 59 Text: Status: Complete Freq: Document 07/11/17 15:00 HENG (Rec: 07/11/17 15:15 [email or web address] [email or web address]) Nutritional Asmnt/Malnutrition Patient General Information Nutritional Screening High Risk Diagnosis hypoxemia, respiratory disress , ARF Pertinent Medical Hx/Surgical Hx CVA, paralysis, seizure, heart disease Subjective Information Consult received on Ashish score 12. Pt seen resting in bed at time of visit, awake, on O2 mask. RN reported pt was choking on [facility] soft chopped diet, tolerating thin liquid. Current Diet Order/ Nutrition Support [facility] soft chopped, cardiac diet Pertinent Medications levaquin, remeron, protonix, piperacillin, vancomycin Pertinent Labs 3/ Na 154, K 2.7, Cl 125, BUN 57, Cr 1.3, Glucose 175, Ca 8 .5 Nutritional Hx/Data Height 1.73 m Height (Calculated Centimeters) 172.7 Current Weight (lbs) 49.895 kg Weight (Calculated Kilograms) 49.9 Weight (Calculated Grams) 51235.2 [place] Body Weight 154 Body Mass Index (BMI) 16.7 Weight Status Underweight GI Symptoms GI Symptoms None Last BM 3/5 Difficult in: Chewing Skin Integrity/Comment: reddeded to back discoloered to right let/thigh , right hand/forearm, right upper extremity, right upper extremity and head pressure area to cyccyx/sacral and right hip Estimated Nutritional Goals Calories/Kcals/Kg 25-30 based on IBW 70kg Kcals Calculated [id number] Protein g/k-1.2 monitor renal labs Protein Calculated 70-84 Fluid: ml 1750-2100ml Nutritional Problem 2. Problem Problem altered nutrition related lab values Etiology imbalanced electrolytes/fluid, CHRISTIAN, endocrine dysfunction Signs/Symptoms: Na 154, K 2.7, Cl 125, BUN 57, Glucose 175 1. Problem Problem chewing difficulty Etiology weakness Signs/Symptoms: pt choking on [facility] soft chopped diet Intervention/Recommendation Comments 1. Modify diet to [facility] soft ground cardiac diet. If PO intake low, will consider nutrition supplement. RN notified. 2. Monitor PO intake, wt, labs and skin integrity 3. F/U as high risk in 2-3 days, 07/13-07/14 Expected Outcomes/Goals Expected Outcomes/Goals 1. PO intake to meet at least 75% of nutritional needs. 2. Wt stability, skin to remain intact, labs to approach WNL.
[2017-07-15] MEDS ORDERED: Amino Acids 3% / Electrolytes 1,000 ML IV SCH (17:11)
--- NOTE | 2017-07-15 20:21 | Progress Notes ---
DATE: ADDENDUM LABORATORY DATA: His white count today is 10.3 and hemoglobin is 11.1, both are stable. Potassium is low at 2.9, which will need placement, BUN 43, creatinine 1.1, also, it is stable. His vancomycin level is low at 8.3. Rest of the dictation is accurate. JOB# [id number]
[2017-07-15] MEDS: Atorvastatin Calcium 10 MG TAB PO SCH (20:37)
[2017-07-16] MEDS: Albuterol/Ipratropium Neb 3 ML AERS HHN SCH ×6 (02:36→22:48)
[2017-07-16] MEDS: metroNIDAZOLE 500mg/NS 100mL 500 MG/100 ML BAG IV SCH ×3 (04:52→21:14)
[2017-07-16 05:07] LABS: HEMOGLOBIN 10.6 gm/dL (12-16); MANUAL DIFF REQUIRED? YES; MEAN CELL VOLUME 82.5 fl (80-99); MEAN CORPUSCULAR HEMOGLOBIN 28.3 pg (27.0-31.0); MEAN CORPUSCULAR HGB CONC 34.2 pg (28.0-36.0); MEAN PLATELET VOLUME 9.4 fl; PLATELET COUNT 38 Th/cmm (150-400); RED BLOOD COUNT 3.75 Mil/cmm (3.80-5.80); RED CELL DISTRIBUTION WIDTH 14.9 % (11.5-20.0); WHITE BLOOD COUNT 7.4 Th/cmm (4.8-10.8)
[2017-07-16 05:16] LABS: ALB/GLOB RATIO 0.7 (1.0-1.8); ALKALINE PHOSPHATASE 55 U/L (34-104); ANION GAP 11.9 (7.0-16.0); BILIRUBIN,TOTAL 0.8 mg/dL (0.3-1.0); BUN - UREA NITROGEN 55 mg/dL (7-25); CALCIUM SERUM 8.4 mg/dL (8.6-10.3); CARBON DIOXIDE 18.5 mEq/L (21.0-31.0); CHLORIDE 122 mEq/L (98-107); GLUCOSE 118 mg/dL (70-105); MAGNESIUM 2.5 mg/dL (1.9-2.7); PHOSPHOROUS 3.8 mg/dL (2.5-5.0); POTASSIUM SERUM 3.4 mEq/L (3.5-5.1); SGOT 22 U/L (13-39); SGPT/ALT 25 U/L (7-52); SODIUM SERUM 149 mEq/L (136-145); TOTAL PROTEIN,SERUM 4.8 gm/dL (6.0-8.3); TRIGLYCERIDES 100 mg/dL (<150)
[2017-07-16 06:46] LABS: BAND NEUTROPHILE 5 % (0-10); LYMPHOCYTE 2 % (20-50); MONOCYTE 1 % (2-10); NEUTROPHILS 92 % (40-80); PLATELET ESTIMATE DECREASED PLATELETS (NORMAL); TOTAL CELLS COUNTED 100
[2017-07-16] MEDS: Levofloxacin 500mg/100mL 500 MG/100 ML BAG IV SCH (07:00)
[2017-07-16] MEDS: Polyvinyl Alcohol Ophth Soln 15 mL Bottle EACH EYE SCH (09:02)
[2017-07-16] MEDS: Amino Acids 3% / Electrolytes 1,000 ML IV SCH (09:35)
--- NOTE | 2017-07-16 11:33 | Infectious Disease Prog Note ---
Infectious Disease Subjective - Review of Systems Service Date: 07/16/17 Subjective: There is no new change, no fever. more alert today. communicating now. on bipap. developed watery diarrhea. C diff ordered. Infectious Disease Objective - Results Result Diagrams: 07/17/17 04:19 07/17/17 04:19 Recent Labs: Laboratory Last Values WBC 7.4 Th/cmm (4.8-10.8) 07/16/17 04:36 RBC 3.75 Mil/cmm (3.80-5.80) L 07/16/17 04:36 Hgb 10.6 gm/dL (12-16) L 07/16/17 04:36 Hct 31.0 % (41.0-60) L 07/16/17 04:36 MCV 82.5 fl (80-99) 07/16/17 04:36 MCH 28.3 pg (27.0-31.0) 07/16/17 04:36 MCHC Differential 34.2 pg (28.0-36.0) 07/16/17 04:36 RDW 14.9 % (11.5-20.0) 07/16/17 04:36 Plt Count 38 Th/cmm (150-400) L 07/16/17 04:36 MPV 9.4 fl 07/16/17 04:36 Neutrophils % 95.3 % (40.0-80.0) H 07/12/17 04:40 Band Neutrophils % 5 % (0-10) 07/16/17 04:36 Lymphocytes % 2.1 % (20.0-50.0) L 07/12/17 04:40 Monocytes % 2.5 % (2.0-10.0) 07/12/17 04:40 Eosinophils % 0.1 % (0.0-5.0) 07/12/17 04:40 Basophils % 0.0 % (0.0-2.0) 07/12/17 04:40 Neutrophils (Manual) 92 % (40-80) H 07/16/17 04:36 Lymphocytes 2 % (20-50) L 07/16/17 04:36 Monocytes 1 % (2-10) L 07/16/17 04:36 Eosinophils 0 % (0-5) 07/11/17 14:14 Basophils 0 % (0-3) 07/11/17 14:14 Platelet Estimate DECREASED PLATELETS (NORMAL) 07/16/17 04:36 Assumption Cells 1+ 07/15/17 04:39 Eos Smear Source URINE 07/11/17 07:45 Eos Smear Total Cells NONE SEEN (NONE SEEN) 07/11/17 07:45 PT 21.9 SECONDS (9.5-11.5) H 07/13/17 04:15 INR 2.03 (0.5-1.4) H 07/13/17 04:15 PTT (Actin FS) 34.1 SECONDS (26.0-38.0) 07/16/17 04:36 D-Dimer 4700 ng/mL (100-400) H 07/10/17 04:10 Specimen Source Arterial 07/14/17 09:40 Sample Site Right Radial 07/14/17 09:40 pH 7.45 (7.35-7.45) 07/14/17 09:40 pCO2 26.0 mmHg (35.0-45.0) L 07/14/17 09:40 pO2 83.0 mmHg (80.0-100.0) 07/14/17 09:40 HCO3 21.4 mEq/L (20.0-26.0) 07/14/17 09:40 Base Excess -4.5 mEq/L (-3.0-3.0) L 07/14/17 09:40 O2 Saturation 97.0 % (92.0-100.0) 07/14/17 09:40 Timothy Test YES 07/14/17 09:40 Vent Rate 12 07/14/17 09:40 Inspired O2 50 07/14/17 09:40 Tidal Volume NA 07/14/17 09:40 PEEP NA 07/14/17 09:40 Pressure (ins/psv/peep) 6 07/14/17 09:40 Critical Value E.ROD 07/14/17 09:40 Sodium 149 mEq/L (136-145) H 07/16/17 04:36 Potassium 3.4 mEq/L (3.5-5.1) L 07/16/17 04:36 Chloride 122 mEq/L (98-107) H 07/16/17 04:36 Carbon Dioxide 18.5 mEq/L (21.0-31.0) L 07/16/17 04:36 Anion Gap 11.9 (7.0-16.0) 07/16/17 04:36 BUN 55 mg/dL (7-25) H 07/16/17 04:36 Creatinine 1.0 mg/dL (0.7-1.3) 07/16/17 04:36 Est GFR ( Amer) TNP 07/16/17 04:36 Est GFR (Non-Af Amer) TNP 07/16/17 04:36 BUN/Creatinine Ratio 55.0 07/16/17 04:36 Glucose 118 mg/dL (70-105) H 07/16/17 04:36 Whole Bld Lactic Acid 1.24 mmol/L (0.60-1.99) 07/15/17 04:39 Uric Acid 6.0 mg/dL (4.4-7.6) 07/11/17 04:20 Calcium 8.4 mg/dL (8.6-10.3) L 07/16/17 04:36 Phosphorus 3.8 mg/dL (2.5-5.0) 07/16/17 04:36 Magnesium 2.5 mg/dL (1.9-2.7) 07/16/17 04:36 Total Bilirubin 0.8 mg/dL (0.3-1.0) 07/16/17 04:36 AST 22 U/L (13-39) 07/16/17 04:36 ALT 25 U/L (7-52) 07/16/17 04:36 Alkaline Phosphatase 55 U/L (34-104) 07/16/17 04:36 Troponin I 0.03 ng/mL (0.01-0.05) 07/09/17 19:48 B-Natriuretic Peptide 19.8 pg/mL (5.0-100.0) 07/16/17 04:36 Total Protein 4.8 gm/dL (6.0-8.3) L 07/16/17 04:36 Albumin 2.0 gm/dL (4.2-5.5) L 07/16/17 04:36 Globulin 2.8 gm/dL 07/16/17 04:36 Albumin/Globulin Ratio 0.7 (1.0-1.8) L 07/16/17 04:36 Triglycerides 100 mg/dL (<150) 07/16/17 04:36 Cholesterol 48 mg/dL (<200) 07/10/17 04:10 LDL Cholesterol Direct 13 mg/dL (75-193) L 07/10/17 04:10 HDL Cholesterol 18 mg/dL (23-92) L 07/10/17 04:10 TSH 2.64 uIU/ml (0.34-5.60) 07/10/17 04:10 Urine Source ANSARI PORT 07/11/17 07:45 Urine Color YELLOW 07/11/17 07:45 Urine Clarity HAZY (CLEAR) 07/11/17 07:45 Urine pH 5.5 (4.6 - 8.0) 07/11/17 07:45 Ur Specific [place] 1.010 (1.005-1.030) 07/11/17 07:45 Urine Protein TRACE mg/dL (NEGATIVE) 07/11/17 07:45 Urine Glucose (UA) NEGATIVE mg/dL (NEGATIVE) 07/11/17 07:45 Urine Ketones NEGATIVE mg/dL (NEGATIVE) 07/11/17 07:45 Urine Blood SMALL (NEGATIVE) H 07/11/17 07:45 Urine Nitrate NEGATIVE (NEGATIVE) 07/11/17 07:45 Urine Bilirubin NEGATIVE (NEGATIVE) 07/11/17 07:45 Urine Urobilinogen 0.2 E.U./dL (0.2 - 1.0) 07/11/17 07:45 Ur Leukocyte Esterase TRACE (NEGATIVE) H 07/11/17 07:45 Urine RBC 0-2 /hpf (0-5) H 07/11/17 07:45 Urine WBC 2-5 /hpf (0-5) 07/11/17 07:45 Ur Epithelial Cells FEW /lpf (FEW) 07/11/17 07:45 Amorphous Sediment MODERATE PHOSPHATES (NONE SEEN) 07/11/17 02:35 Urine Bacteria FEW /hpf (NONE SEEN) 07/11/17 07:45 Fine Granular Casts 5-10 /lpf (NONE SEEN) H 07/11/17 02:35 Urine Osmolality 404 mOsmol/kg 07/11/17 02:35 Ur Random Sodium 88 mmol/L 07/11/17 07:45 Urine Creatinine 34.0 mg/dl (39.0-259.0) L 07/11/17 07:45 Urine Microalbumin 61.5 ug/mL (Not Estab.) 07/11/17 02:35 Vancomycin Trough 8.3 ug/mL (10-20) L 07/15/17 08:06 Random Vancomycin 22.3 ug/mL (5.0-40.0) 07/11/17 16:13 Levetiracetam 69.5 ug/mL (10.0-40.0) H 07/09/17 19:48 Ur L.pneumophila Ag Negative (Negative) 07/11/17 02:35 - Physical Exam Vitals and I&O: Vital Signs Temp 97.4 F 07/16/17 11:00 Pulse 77 07/16/17 11:00 Resp 22 07/16/17 11:20 BP 108/65 07/16/17 11:00 Pulse Ox 97 07/16/17 11:20 Intake & Output 07/15/17 07/16/17 07/16/17 18:59 06:59 18:59 Intake Total 369.355 5758.500 100 Output Total 402 351 Balance 111.871 3452.500 100 Weight (lbs) 54.431 kg 54.431 kg Intake: Intake, IV Amount 224.917 9108.500 100 Amino Acids 3% / 539.167 Electrolytes 1,000 ml @ 50 mls/hr IV .Q20H [facility] Rx #:[id number] Cefepime 1 gm In Dextrose 50 50 5% 50 ml @ 100 mls/hr IV Q8HR [facility] Rx#:[id number] Dextrose 5% 500 ml @ 20 289.333 mls/hr IV Q24H [facility] Rx#: [id number] KCL 20mEq/100mL Premix 20 100 meq In 100 ml @ 50 mls/ hr IV ONCE ONE Rx#: [id number] KCL 20mEq/100mL Premix 20 170.833 meq In 100 ml @ 50 mls/ hr IV Q2H [facility] Rx#: [id number] Levofloxacin 500mg/100mL 100 100 500 mg In 100 ml @ 100 mls/hr IV Q24HR [facility] Rx#: [id number] Norepinephrine 4 mg In 77.851 Sodium Chloride 0.9% 250 ml @ 0 MCG/MIN IV TITR PRN Rx#:[id number] metroNIDAZOLE 500mg/NS 100 200 100mL 500 mg In 100 ml @ 100 mls/hr IV Q8HR [facility] Rx #:[id number] Output: Urine 400 350 Stool 2 1 Active Medications: Current Medications Acetaminophen (Tylenol 325mg Supp) 650 mg RC Q6H PRN PRN Reason: Pain or Fever >101 Stop: 09/13/17 15:58 Last Admin: 07/15/17 17:00 Dose: 650 mg Albuterol/Ipratropium (Duoneb Neb) 3 ml HHN Q4HRT [facility] Stop: 09/08/17 14:59 Last Admin: 07/16/17 11:20 Dose: 3 ml Artificial Tears (Artificial Tears Ophth Soln) 1 drop EACH EYE DAILY [facility] Stop: 09/09/17 10:59 Last Admin: 07/16/17 09:02 Dose: 1 drop Atorvastatin Calcium (Lipitor) 20 mg PO HS [facility] Stop: 09/09/17 20:59 Last Admin: 07/15/17 20:37 Dose: Not Given Levofloxacin (Levaquin Pb) 500 mg in 100 mls @ 100 mls/hr IV Q24HR [facility] Stop: 09/09/17 07:59 Last Infusion: 07/16/17 08:00 Dose: Infused Metronidazole (Flagyl) 500 mg in 100 mls @ 100 mls/hr IV Q8HR [facility] Stop: 09/09/17 12:59 Last Infusion: 07/16/17 05:52 Dose: Infused Cefepime HCl 1 gm/ Dextrose 50 mls @ 100 mls/hr IV Q8HR [facility] Stop: 09/09/17 20:59 Last Admin: 07/16/17 06:00 Dose: 100 mls/hr Norepinephrine Bitartrate 4 mg (/ Sodium Chloride) 254 mls @ 0 mls/hr IV TITR PRN; Protocol; 0 MCG/MIN PRN Reason: BP MAINTENANCE (PER PROTOCOL) Stop: 09/11/17 09:59 Last Titration: 07/15/17 11:28 Dose: 0 mcg/min, 0 mls/hr Dextrose (D5w) 500 mls @ 20 mls/hr IV Q24H [facility] Stop: 09/13/17 14:59 Last Infusion: 07/16/17 06:00 Dose: 20 mls/hr Amino Acids/Electrolytes (Procalamine) 1,000 mls @ 50 mls/hr IV .Q20H [facility] Stop: 07/16/17 15:00 Last Infusion: 07/16/17 06:00 Dose: 50 mls/hr Levetiracetam 750 mg/ Sodium (Chloride) 107.5 mls @ 400 mls/hr IV Q12H [facility] Stop: 09/14/17 10:59 Magnesium Hydroxide (Milk Of Magnesia) 30 ml PO HS PRN PRN Reason: Constipation Stop: 09/09/17 09:12 Methylprednisolone Sodium Succinate (Solu-Medrol) 40 mg IV Q6HR [facility] Stop: 09/11/17 17:59 Last Admin: 07/16/17 06:14 Dose: 40 mg Mirtazapine (Remeron) 7.5 mg PO HS [facility] Stop: 09/09/17 20:59 Last Admin: 07/15/17 20:37 Dose: Not Given Miscellaneous (Tpn Per Pharmacy) 1 ea MC PRN PRN PRN Reason: PROTOCOL Stop: 09/13/17 12:33 Pantoprazole Sodium (Protonix) 40 mg IVP DAILY [facility] Stop: 09/09/17 09:59 Last Admin: 07/16/17 09:00 Dose: 40 mg Sertraline HCl (Zoloft) 25 mg PO DAILY [facility] PRN Reason: Protocol Stop: 09/09/17 09:14 Last Admin: 07/16/17 09:02 Dose: Not Given Sucralfate (Carafate) 1 gm PO ACHS [facility] Stop: 09/09/17 11:29 Last Admin: 07/16/17 07:39 Dose: Not Given Zolpidem Tartrate (Ambien) 5 mg PO HS PRN PRN Reason: Insomnia Stop: 09/09/17 20:59 Last Admin: 07/11/17 20:48 Dose: 5 mg General: no acute distress, well developed, well nourished HEENT: atraumatic, normocephalic, PERRLA, EOMI, moist mucous membrane Neck: supple, no thyromegaly, no lymphadenopathy Cardiovascular: S1S2, regular Lungs: clear to percussion, crackles Abdomen: soft, no tender, no distended Extremities: no cyanosis, no clubbing, no edema Neurological: awake, alert, oriented Skin: intact - Procedures Procedures: Procedures Procedure Code Date ASSISTANCE WITH RESPIRATORY VENTILATION, 24-96 HRS, CPAP [id number] 07/09/17 POS AIRWAY PRESSURE CPAP 02084 07/09/17 Infectious Disease Assmt/Plan - Assessment Assessment: 1. Severe septic shock with multiorgan failure. Improving. although WBC count went very high, will check CBC again. 2. Pneumonia, likely aspiration pneumonia versus atypical pneumonia. 3. Cerebrovascular accident. 4. Respiratory insufficiency. 5. Hepatitis. 6. Benign prostatic hypertrophy. 7. Acute renal failure, acute kidney injury. 8. Lactic acidosis. 9. History of hypertension. 10. History of chronic disease. 11. History of seizure disorder. 12. Sacral decubitus ulcer. - Plan Plan: Will continue cefepime and flagyl. and levaquin. Nutritional Asmnt/Malnutr-PDOC - Dietary Evaluation Malnutrition Findings (Please click <Entered> for more info): Nutritional Asmnt/Malnutrition Start: 07/11/17 14: 59 Text: Status: Complete Freq: Document 07/11/17 15:00 [facility] (Rec: 07/11/17 15:15 [email or web address]) Nutritional Asmnt/Malnutrition Patient General Information Nutritional Screening High Risk Diagnosis hypoxemia, respiratory disress , ARF Pertinent Medical Hx/Surgical Hx CVA, paralysis, seizure, heart disease Subjective Information Consult received on Ashish score 12. Pt seen resting in bed at time of visit, awake, on O2 mask. RN reported pt was choking on [facility] soft chopped diet, tolerating thin liquid. Current Diet Order/ Nutrition Support [facility] soft chopped, cardiac diet Pertinent Medications levaquin, remeron, protonix, piperacillin, vancomycin Pertinent Labs 3/5 Na 154, K 2.7, Cl 125, BUN 57, Cr 1.3, Glucose 175, Ca 8 .5 Nutritional Hx/Data Height 1.73 m Height (Calculated Centimeters) 172.7 Current Weight (lbs) 49.895 kg Weight (Calculated Kilograms) 49.9 Weight (Calculated Grams) 96479.2 [place] Body Weight 154 Body Mass Index (BMI) 16.7 Weight Status Underweight GI Symptoms GI Symptoms None Last BM 3/5 Difficult in: Chewing Skin Integrity/Comment: reddeded to back discoloered to right let/thigh , right hand/forearm, right upper extremity, right upper extremity and head pressure area to cyccyx/sacral and right hip Estimated Nutritional Goals Calories/Kcals/Kg 25-30 based on IBW 70kg Kcals Calculated 0782-2970 Protein g/k-1.2 monitor renal labs Protein Calculated 70-84 Fluid: ml 1750-2100ml Nutritional Problem 2. Problem Problem altered nutrition related lab values Etiology imbalanced electrolytes/fluid, CHRISTIAN, endocrine dysfunction Signs/Symptoms: Na 154, K 2.7, Cl 125, BUN 57, Glucose 175 1. Problem Problem chewing difficulty Etiology weakness Signs/Symptoms: pt choking on [facility] soft chopped diet Intervention/Recommendation Comments 1. Modify diet to [facility] soft ground cardiac diet. If PO intake low, will consider nutrition supplement. RN notified. 2. Monitor PO intake, wt, labs and skin integrity 3. F/U as high risk in 2-3 days, 07/13-07/14 Expected Outcomes/Goals Expected Outcomes/Goals 1. PO intake to meet at least 75% of nutritional needs. 2. Wt stability, skin to remain intact, labs to approach WNL.
[2017-07-16] MEDS: INSULIN ASPART SLIDING SCALE 100 UNITS/ML UNIT SUBQ SCH ×2 (12:02→17:34)
[2017-07-16] MEDS ORDERED: Sodium Bicarbonate 8.4% 50mEq PFS IVP ONE (14:17)
[2017-07-16] MEDS: DEXT 10% IV SCH (16:00)
[2017-07-16] MEDS: INTRALIPIDS IV SCH (16:00)
[2017-07-16] MEDS: AMINO ACIDS IV SCH (16:00)
[2017-07-16] MEDS: MULTIVITAMIN IV SCH (16:00)
[2017-07-16] MEDS: Dextrose 5% 500 ML IV SCH (17:29)
[2017-07-16] MEDS: Atorvastatin Calcium 10 MG TAB PO SCH (21:00)
--- NOTE | 2017-07-17 00:20 | Cardiology ---
07/15/2017 M-MODE ECHOCARDIOGRAM: Mitral valve, anterior leaflet of mitral valve shows normal excursion, EF velocity. Posterior leaflet of the mitral valve shows normal excursion. Left ventricle posterior shows increased thickness, normal excursion. Interventricular septum shows increased thickness, normal excursion, hypertrophy of the left ventricle, ejection fraction 55%. Left atrium normal. Aortic root shows normal dimension, normal excursion of aortic leaflets. CONCLUSION: Hypertrophy of the left ventricle, ejection fraction 55%. 2D ECHO: Long axis view show normal size left ventricle with hypertrophy of the left ventricle. Left atrium normal. Aortic root shows normal dimension, normal excursion of aortic leaflets. Short axis view of mitral valve normal. Short axis view of aortic valve normal. Apical four chamber view showed normal sized left ventricle with hypertrophy of the left ventricle. Left atrium, normal right ventricular cavity, right atrium normal, no pericardial effusion. CONCLUSION: Hypertrophy of the left ventricle, ejection fraction 55%. Doppler study shows trace mitral regurgitation, trace mild tricuspid regurgitation, mild to moderate aortic regurgitation. [facility]# [id number]
[2017-07-17] MEDS: INSULIN ASPART SLIDING SCALE 100 UNITS/ML UNIT SUBQ SCH ×4 (00:27→17:48)
[2017-07-17] MEDS: Albuterol/Ipratropium Neb 3 ML AERS HHN SCH ×6 (03:26→23:06)
[2017-07-17 04:46] LABS: HEMOGLOBIN 9.9 gm/dL (12-16); LYMPHOCYTE ABSOLUTE 0.1 Th/cmm (1.5-3.0); MANUAL DIFF REQUIRED? YES; MONOCYTE ABSOLUTE 0.2 Th/cmm (0.3-1.0)
[2017-07-17 04:57] LABS: HEMATOCRIT 29.5 % (41.0-60); MEAN CELL VOLUME 84.4 fl (80-99); MEAN CORPUSCULAR HEMOGLOBIN 28.5 pg (27.0-31.0); MEAN CORPUSCULAR HGB CONC 33.7 pg (28.0-36.0); MEAN PLATELET VOLUME 9.5 fl; NEUTROPHILE ABSOLUTE 6.6 Th/cmm (1.8-8.0); PLATELET COUNT 47 Th/cmm (150-400); RED BLOOD COUNT 3.49 Mil/cmm (3.80-5.80); RED CELL DISTRIBUTION WIDTH 14.3 % (11.5-20.0); WHITE BLOOD COUNT 6.9 Th/cmm (4.8-10.8)
[2017-07-17 05:10] LABS: ALB/GLOB RATIO 0.7 (1.0-1.8); ALBUMIN 1.9 gm/dL (4.2-5.5); ALKALINE PHOSPHATASE 47 U/L (34-104); ANION GAP 9.1 (7.0-16.0); BILIRUBIN,TOTAL 0.6 mg/dL (0.3-1.0); BUN - UREA NITROGEN 54 mg/dL (7-25); CALCIUM SERUM 8.2 mg/dL (8.6-10.3); CARBON DIOXIDE 22.9 mEq/L (21.0-31.0); CHLORIDE 120 mEq/L (98-107); CREATININE - SERUM 0.8 mg/dL (0.7-1.3); GLUCOSE 159 mg/dL (70-105); MAGNESIUM 2.4 mg/dL (1.9-2.7); PHOSPHOROUS 3.4 mg/dL (2.5-5.0); SGOT 19 U/L (13-39); SGPT/ALT 24 U/L (7-52); SODIUM SERUM 149 mEq/L (136-145); TOTAL PROTEIN,SERUM 4.5 gm/dL (6.0-8.3)
[2017-07-17] MEDS: metroNIDAZOLE 500mg/NS 100mL 500 MG/100 ML BAG IV SCH ×3 (05:31→20:10)
[2017-07-17] MEDS: Levofloxacin 500mg/100mL 500 MG/100 ML BAG IV SCH (08:00)
[2017-07-17 08:01] LABS: LYMPHOCYTE 3 % (20-50); MONOCYTE 2 % (2-10); NEUTROPHILS 95 % (40-80); TOTAL CELLS COUNTED 100
[2017-07-17 08:02] LABS: PLATELET ESTIMATE DECREASED PLATELETS (NORMAL)
[2017-07-17] MEDS: Polyvinyl Alcohol Ophth Soln 15 mL Bottle EACH EYE SCH (08:50)
[2017-07-17 09:05] LABS: pH 7.53 (7.35-7.45)
--- NOTE | 2017-07-17 09:39 | Diagnostic Imaging Report ---
CHEST X-RAY: AP view INDICATION: Shortness of breath COMPARISON: 07/15/2017 FINDINGS: Right PICC line is seen with tip in SVC. Bilateral diffuse infiltrates are noted greatest in the lower lung zones. Small left effusion is noted. Heart size is normal. IMPRESSION: Bilateral diffuse infiltrates greatest along the lower lung zones. Findings suggest multifocal pneumonia.
[2017-07-17] MEDS: KCL 20mEq/100mL Premix 20 MEQ/100 ML PIGGYBACK IV ONE (14:35)
[2017-07-17] MEDS ORDERED: Probiotic Screen MC PRN (16:06)
[2017-07-17] MEDS: DEXT 10% IV SCH (16:13)
[2017-07-17] MEDS: MULTIVITAMIN IV SCH (16:13)
[2017-07-17] MEDS: AMINO ACIDS IV SCH (16:13)
[2017-07-17] MEDS: INTRALIPIDS IV SCH (16:13)
[2017-07-17] MEDS: Dextrose 5% 500 ML IV SCH (16:24)
[2017-07-17] MEDS: Albumin 25% 25gm/100mL 25 GM/100 ML BTL IV SCH (17:01)
[2017-07-17] MEDS: Atorvastatin Calcium 10 MG TAB PO SCH (20:10)
--- NOTE | 2017-07-17 23:29 | Infectious Disease Prog Note ---
Infectious Disease Subjective - Review of Systems Service Date: 07/17/17 Subjective: There is no new change, no fever. more alert today. communicating now. on bipap. developed watery diarrhea. C diff ordered. Infectious Disease Objective - Results Result Diagrams: 07/17/17 04:19 07/17/17 04:19 Recent Labs: Laboratory Last Values WBC 6.9 Th/cmm (4.8-10.8) 07/17/17 04:19 RBC 3.49 Mil/cmm (3.80-5.80) L 07/17/17 04:19 Hgb 9.9 gm/dL (12-16) L 07/17/17 04:19 Hct 29.5 % (41.0-60) L 07/17/17 04:19 MCV 84.4 fl (80-99) 07/17/17 04:19 MCH 28.5 pg (27.0-31.0) 07/17/17 04:19 MCHC Differential 33.7 pg (28.0-36.0) 07/17/17 04:19 RDW 14.3 % (11.5-20.0) 07/17/17 04:19 Plt Count 47 Th/cmm (150-400) L 07/17/17 04:19 MPV 9.5 fl 07/17/17 04:19 Neutrophils % GEOSPATIAL SYSTEMS INTEGRATOR 07/17/17 04:19 Band Neutrophils % 5 % (0-10) 07/16/17 04:36 Lymphocytes % GEOSPATIAL SYSTEMS INTEGRATOR 07/17/17 04:19 Monocytes % GEOSPATIAL SYSTEMS INTEGRATOR 07/17/17 04:19 Eosinophils % 0.1 % (0.0-5.0) 07/12/17 04:40 Basophils % 0.0 % (0.0-2.0) 07/12/17 04:40 Neutrophils (Manual) 95 % (40-80) H 07/17/17 04:19 Lymphocytes 3 % (20-50) L 07/17/17 04:19 Monocytes 2 % (2-10) 07/17/17 04:19 Eosinophils 0 % (0-5) 07/11/17 14:14 Basophils 0 % (0-3) 07/11/17 14:14 Platelet Estimate DECREASED PLATELETS (NORMAL) 07/17/17 04:19 [place] Cells 1+ 07/15/17 04:39 Eos Smear Source URINE 07/11/17 07:45 Eos Smear Total Cells NONE SEEN (NONE SEEN) 07/11/17 07:45 PT 21.9 SECONDS (9.5-11.5) H 07/13/17 04:15 INR 2.03 (0.5-1.4) H 07/13/17 04:15 PTT (Actin FS) 33.9 SECONDS (26.0-38.0) 07/17/17 04:19 D-Dimer 4700 ng/mL (100-400) H 07/10/17 04:10 Specimen Source Arterial 07/17/17 09:00 Sample Site RB 07/17/17 09:00 pH 7.53 (7.35-7.45) H 07/17/17 09:00 pCO2 27.0 mmHg (35.0-45.0) L 07/17/17 09:00 pO2 81.0 mmHg (80.0-100.0) 07/17/17 09:00 HCO3 25.6 mEq/L (20.0-26.0) 07/17/17 09:00 Base Excess 0.9 mEq/L (-3.0-3.0) 07/17/17 09:00 O2 Saturation 97.0 % (92.0-100.0) 07/17/17 09:00 [place] Test NA 07/17/17 09:00 Vent Rate 12 07/17/17 09:00 Inspired O2 55 07/17/17 09:00 Tidal Volume 650 07/17/17 09:00 PEEP 6 07/17/17 09:00 Pressure (ins/psv/peep) 6 07/17/17 09:00 Critical Value SH 07/17/17 09:00 Sodium 149 mEq/L (136-145) H 07/17/17 04:19 Potassium 3.0 mEq/L (3.5-5.1) L 07/17/17 04:19 Chloride 120 mEq/L (98-107) H 07/17/17 04:19 Carbon Dioxide 22.9 mEq/L (21.0-31.0) 07/17/17 04:19 Anion Gap 9.1 (7.0-16.0) 07/17/17 04:19 BUN 54 mg/dL (7-25) H 07/17/17 04:19 Creatinine 0.8 mg/dL (0.7-1.3) 07/17/17 04:19 Est GFR ( Amer) TNP 07/17/17 04:19 Est GFR (Non-Af Amer) TNP 07/17/17 04:19 BUN/Creatinine Ratio 67.5 07/17/17 04:19 Glucose 159 mg/dL (70-105) H 07/17/17 04:19 POC Glucose 153 MG/DL (70 - 105) H 07/17/17 17:47 Whole Bld Lactic Acid 1.24 mmol/L (0.60-1.99) 07/15/17 04:39 Uric Acid 6.0 mg/dL (4.4-7.6) 07/11/17 04:20 Calcium 8.2 mg/dL (8.6-10.3) L 07/17/17 04:19 Phosphorus 3.4 mg/dL (2.5-5.0) 07/17/17 04:19 Magnesium 2.4 mg/dL (1.9-2.7) 07/17/17 04:19 Total Bilirubin 0.6 mg/dL (0.3-1.0) 07/17/17 04:19 AST 19 U/L (13-39) 07/17/17 04:19 ALT 24 U/L (7-52) 07/17/17 04:19 Alkaline Phosphatase 47 U/L (34-104) 07/17/17 04:19 Troponin I 0.03 ng/mL (0.01-0.05) 07/09/17 19:48 B-Natriuretic Peptide 19.8 pg/mL (5.0-100.0) 07/16/17 04:36 Total Protein 4.5 gm/dL (6.0-8.3) L 07/17/17 04:19 Albumin 1.9 gm/dL (4.2-5.5) L 07/17/17 04:19 Globulin 2.6 gm/dL 07/17/17 04:19 Albumin/Globulin Ratio 0.7 (1.0-1.8) L 07/17/17 04:19 Prealbumin 7 mg/dL (9-32) L 07/16/17 04:36 Triglycerides 100 mg/dL (<150) 07/16/17 04:36 Cholesterol 48 mg/dL (<200) 07/10/17 04:10 LDL Cholesterol Direct 13 mg/dL (75-193) L 07/10/17 04:10 HDL Cholesterol 18 mg/dL (23-92) L 07/10/17 04:10 TSH 2.64 uIU/ml (0.34-5.60) 07/10/17 04:10 Urine Source ANSARI [place] 07/11/17 07:45 Urine Color YELLOW 07/11/17 07:45 Urine Clarity HAZY (CLEAR) 07/11/17 07:45 Urine pH 5.5 (4.6 - 8.0) 07/11/17 07:45 Ur Specific [place] 1.010 (1.005-1.030) 07/11/17 07:45 Urine Protein TRACE mg/dL (NEGATIVE) 07/11/17 07:45 Urine Glucose (UA) NEGATIVE mg/dL (NEGATIVE) 07/11/17 07:45 Urine Ketones NEGATIVE mg/dL (NEGATIVE) 07/11/17 07:45 Urine Blood SMALL (NEGATIVE) H 07/11/17 07:45 Urine Nitrate NEGATIVE (NEGATIVE) 07/11/17 07:45 Urine Bilirubin NEGATIVE (NEGATIVE) 07/11/17 07:45 Urine Urobilinogen 0.2 E.U./dL (0.2 - 1.0) 07/11/17 07:45 Ur Leukocyte Esterase TRACE (NEGATIVE) H 07/11/17 07:45 Urine RBC 0-2 /hpf (0-5) H 07/11/17 07:45 Urine WBC 2-5 /hpf (0-5) 07/11/17 07:45 Ur Epithelial Cells FEW /lpf (FEW) 07/11/17 07:45 Amorphous Sediment MODERATE PHOSPHATES (NONE SEEN) 07/11/17 02:35 Urine Bacteria FEW /hpf (NONE SEEN) 07/11/17 07:45 Fine Granular Casts 5-10 /lpf (NONE SEEN) H 07/11/17 02:35 Urine Osmolality 404 mOsmol/kg 07/11/17 02:35 Ur Random Sodium 88 mmol/L 07/11/17 07:45 Urine Creatinine 34.0 mg/dl (39.0-259.0) L 07/11/17 07:45 Urine Microalbumin 61.5 ug/mL (Not Estab.) 03/05/18 02:35 Vancomycin Trough 8.3 ug/mL (10-20) L 07/15/17 08:06 Random Vancomycin 22.3 ug/mL (5.0-40.0) 07/11/17 16:13 Levetiracetam 69.5 ug/mL (10.0-40.0) H 07/09/17 19:48 Ur L.pneumophila Ag Negative (Negative) 07/11/17 02:35 - Physical Exam Vitals and I&O: Vital Signs Temp 96.4 F 07/17/17 22:00 Pulse 105 07/17/17 22:00 Resp 29 07/17/17 23:06 BP 117/57 07/17/17 22:00 Pulse Ox 97 07/17/17 23:06 Intake & Output 07/17/17 07/17/17 07/18/17 06:59 18:59 06:59 Intake Total 1076.333 250 Output Total 520 Balance 556.333 250 Weight (lbs) 53.099 kg Intake: Intake, IV Amount 1076.333 250 Albumin 25% 25gm/100mL 25 100 gm In 100 ml @ 50 mls/hr IV Q8HR [facility] Rx#: [id number] Cefepime 1 gm In Dextrose 50 50 5% 50 ml @ 100 mls/hr IV Q8HR [facility] Rx#:[id number] Dextrose 5% 500 ml @ 20 208 mls/hr IV Q24H [facility] Rx#: [id number] Levetiracetam 750 mg In 107.5 Sodium Chloride 0.9% 100 ml @ 400 mls/hr IV Q12H [facility] Rx#:[id number] Levofloxacin 500mg/100mL 100 500 mg In 100 ml @ 100 mls/hr IV Q24HR [facility] Rx#: [id number] Multivitamin Inj 10 ml In 510.833 Amino Acids 4.25% /Dext 10% 1,140 ml In Intralipids 20% 50 ml @ 50 mls/hr IV .Q24H [facility] Rx #:[id number] metroNIDAZOLE 500mg/NS 100 100 100mL 500 mg In 100 ml @ 100 mls/hr IV Q8HR [facility] Rx #:[id number] Oral 0 Output: Urine 520 Other: # Bowel Movements 1 Stool Characteristics Soft Liquid Brown Active Medications: Current Medications Acetaminophen (Tylenol 325mg Supp) 650 mg RC Q6H PRN PRN Reason: Pain or Fever >101 Stop: 09/13/17 15:58 Last Admin: 07/15/17 17:00 Dose: 650 mg Albuterol/Ipratropium (Duoneb Neb) 3 ml HHN Q4HRT [facility] Stop: 09/08/17 14:59 Last Admin: 07/17/17 23:06 Dose: 3 ml Artificial Tears (Artificial Tears Ophth Soln) 1 drop EACH EYE DAILY [facility] Stop: 09/09/17 10:59 Last Admin: 07/17/17 08:50 Dose: 1 drop Atorvastatin Calcium (Lipitor) 20 mg PO HS [facility] Stop: 09/09/17 20:59 Last Admin: 07/17/17 20:10 Dose: Not Given Levofloxacin (Levaquin Pb) 500 mg in 100 mls @ 100 mls/hr IV Q24HR [facility] Stop: 09/09/17 07:59 Last Infusion: 07/17/17 10:00 Dose: Infused Metronidazole (Flagyl) 500 mg in 100 mls @ 100 mls/hr IV Q8HR [facility] Stop: 09/09/17 12:59 Last Infusion: 07/17/17 21:10 Dose: Infused Cefepime HCl 1 gm/ Dextrose 50 mls @ 100 mls/hr IV Q8HR [facility] Stop: 09/09/17 20:59 Last Infusion: 07/17/17 20:30 Dose: Infused Norepinephrine Bitartrate 4 mg (/ Sodium Chloride) 254 mls @ 0 mls/hr IV TITR PRN; Protocol; 0 MCG/MIN PRN Reason: BP MAINTENANCE (PER PROTOCOL) Stop: 09/11/17 09:59 Last Titration: 07/15/17 11:28 Dose: 0 mcg/min, 0 mls/hr Dextrose (D5w) 500 mls @ 20 mls/hr IV Q24H [facility] Stop: 09/13/17 14:59 Last Admin: 07/17/17 16:24 Dose: 20 mls/hr Levetiracetam 750 mg/ Sodium (Chloride) 107.5 mls @ 400 mls/hr IV Q12H [facility] Stop: 09/14/17 10:59 Last Admin: 07/17/17 22:20 Dose: 400 mls/hr Multivitamins/Minerals 10 ml/Amino Acids/ Fat Emulsion Intravenous 1,200 mls @ 50 mls/hr IV .Q24H [facility] Stop: 09/14/17 15:59 Last Admin: 07/17/17 16:13 Dose: 50 mls/hr Albumin Human (Albuminar 25%) 25 gm in 100 mls @ 50 mls/hr IV Q8HR [facility] Stop: 07/18/17 06:59 Last Infusion: 07/17/17 19:05 Dose: Infused Insulin Aspart (Novolog Insulin Sliding Scale) 0 units SUBQ Q6HR [facility] PRN Reason: Protocol Stop: 09/14/17 11:59 Last Admin: 07/17/17 17:48 Dose: 2 units Magnesium Hydroxide (Milk Of Magnesia) 30 ml PO HS PRN PRN Reason: Constipation Stop: 09/09/17 09:12 Methylprednisolone Sodium Succinate (Solu-Medrol) 40 mg IV Q6HR [facility] Stop: 09/11/17 17:59 Last Admin: 07/17/17 17:43 Dose: 40 mg Mirtazapine (Remeron) 7.5 mg PO HS [facility] Stop: 09/09/17 20:59 Last Admin: 07/17/17 20:11 Dose: Not Given Miscellaneous (Tpn Per Pharmacy) 1 ea PRN PRN PRN Reason: PROTOCOL Stop: 09/13/17 12:33 Miscellaneous (Probiotic Screen) 1 ea PRN PRN PRN Reason: PROTOCOL Stop: 09/15/17 16:05 Pantoprazole Sodium (Protonix) 40 mg IVP DAILY [facility] Stop: 09/09/17 09:59 Last Admin: 07/17/17 08:50 Dose: 40 mg Sertraline HCl (Zoloft) 25 mg PO DAILY [facility] PRN Reason: Protocol Stop: 09/09/17 09:14 Last Admin: 07/17/17 08:49 Dose: Not Given Sucralfate (Carafate) 1 gm PO ACHS [facility] Stop: 09/09/17 11:29 Last Admin: 07/17/17 20:11 Dose: Not Given Zolpidem Tartrate (Ambien) 5 mg PO HS PRN PRN Reason: Insomnia Stop: 09/09/17 20:59 Last Admin: 07/11/17 20:48 Dose: 5 mg General: no acute distress, well developed, well nourished HEENT: atraumatic, normocephalic, PERRLA Neck: supple, no thyromegaly Cardiovascular: S1S2, regular Lungs: clear to auscultation bilaterally, clear to percussion, crackles Abdomen: soft, no tender, no distended Extremities: no cyanosis, no clubbing Neurological: awake, other (confused.) Skin: intact - Procedures Procedures: Procedures Procedure Code Date ASSISTANCE WITH RESPIRATORY VENTILATION, 24-96 HRS, CPAP [id number] 07/09/17 POS AIRWAY PRESSURE CPAP [id number] 07/09/17 Infectious Disease Assmt/Plan - Assessment Assessment: 1. Severe septic shock with multiorgan failure. Improving. although WBC count went very high, will check CBC again. 2. Pneumonia, likely aspiration pneumonia versus atypical pneumonia. 3. Cerebrovascular accident. 4. Respiratory insufficiency. 5. Hepatitis. 6. Benign prostatic hypertrophy. 7. Acute renal failure, acute kidney injury. 8. Lactic acidosis. 9. History of hypertension. 10. History of chronic disease. 11. History of seizure disorder. 12. Sacral decubitus ulcer. - Plan Plan: Will continue cefepime and flagyl. and levaquin. Nutritional Asmnt/Malnutr-PDOC - Dietary Evaluation Malnutrition Findings (Please click <Entered> for more info): Nutritional Asmnt/Malnutrition Start: 07/11/17 14: 59 Text: Status: Complete Freq: Document 07/11/17 15:00 SHIRA (Rec: 07/11/17 15:15 [email or web address]) Nutritional Asmnt/Malnutrition Patient General Information Nutritional Screening High Risk Diagnosis hypoxemia, respiratory disress , ARF Pertinent Medical Hx/Surgical Hx CVA, paralysis, seizure, heart disease Subjective Information Consult received on Ashish score 12. Pt seen resting in bed at time of visit, awake, on O2 mask. RN reported pt was choking on [facility] soft chopped diet, tolerating thin liquid. Current Diet Order/ Nutrition Support [facility] soft chopped, cardiac diet Pertinent Medications levaquin, remeron, protonix, piperacillin, vancomycin Pertinent Labs 3/5 Na 154, K 2.7, Cl 125, BUN 57, Cr 1.3, Glucose 175, Ca 8 .5 Nutritional Hx/Data Height 1.73 m Height (Calculated Centimeters) 172.7 Current Weight (lbs) 49.895 kg Weight (Calculated Kilograms) 49.9 Weight (Calculated Grams) 80988.2 [place] Body Weight 154 Body Mass Index (BMI) 16.7 Weight Status Underweight GI Symptoms GI Symptoms None Last BM 3/5 Difficult in: Chewing Skin Integrity/Comment: reddeded to back discoloered to right let/thigh , right hand/forearm, right upper extremity, right upper extremity and head pressure area to cyccyx/sacral and right hip Estimated Nutritional Goals Calories/Kcals/Kg 25-30 based on IBW 70kg Kcals Calculated 8044-8553 Protein g/k-1.2 monitor renal labs Protein Calculated 70-84 Fluid: ml 1750-2100ml Nutritional Problem 2. Problem Problem altered nutrition related lab values Etiology imbalanced electrolytes/fluid, CHRISTIAN, endocrine dysfunction Signs/Symptoms: Na 154, K 2.7, Cl 125, BUN 57, Glucose 175 1. Problem Problem chewing difficulty Etiology weakness Signs/Symptoms: pt choking on mech soft chopped diet Intervention/Recommendation Comments 1. Modify diet to [facility] soft ground cardiac diet. If PO intake low, will consider nutrition supplement. RN notified. 2. Monitor PO intake, wt, labs and skin integrity 3. F/U as high risk in 2-3 days, 07/13-07/14 Expected Outcomes/Goals Expected Outcomes/Goals 1. PO intake to meet at least 75% of nutritional needs. 2. Wt stability, skin to remain intact, labs to approach WNL.
[2017-07-18] MEDS: INSULIN ASPART SLIDING SCALE 100 UNITS/ML UNIT SUBQ SCH ×4 (00:02→19:47)
[2017-07-18] MEDS: Albumin 25% 25gm/100mL 25 GM/100 ML BTL IV SCH ×2 (00:06→12:38)
[2017-07-18] MEDS: Albuterol/Ipratropium Neb 3 ML AERS HHN SCH ×6 (03:00→22:42)
[2017-07-18 04:21] LABS: HEMATOCRIT 25.8 % (41.0-60); HEMOGLOBIN 8.6 gm/dL (12-16); MANUAL DIFF REQUIRED? YES
[2017-07-18 04:28] LABS: MEAN CELL VOLUME 84.4 fl (80-99); MEAN CORPUSCULAR HEMOGLOBIN 28.2 pg (27.0-31.0); MEAN CORPUSCULAR HGB CONC 33.5 pg (28.0-36.0); MEAN PLATELET VOLUME 9.7 fl; PLATELET COUNT 48 Th/cmm (150-400); RED BLOOD COUNT 3.06 Mil/cmm (3.80-5.80); RED CELL DISTRIBUTION WIDTH 14.6 % (11.5-20.0); WHITE BLOOD COUNT 5.6 Th/cmm (4.8-10.8)
[2017-07-18 04:41] LABS: ALB/GLOB RATIO 1.2 (1.0-1.8); ALBUMIN 2.7 gm/dL (4.2-5.5); ALKALINE PHOSPHATASE 37 U/L (34-104); ANION GAP 7.8 (7.0-16.0); BILIRUBIN,TOTAL 0.8 mg/dL (0.3-1.0); BUN - UREA NITROGEN 46 mg/dL (7-25); CALCIUM SERUM 8.5 mg/dL (8.6-10.3); CARBON DIOXIDE 23.6 mEq/L (21.0-31.0); CHLORIDE 121 mEq/L (98-107); CREATININE - SERUM 0.8 mg/dL (0.7-1.3); GLUCOSE 190 mg/dL (70-105); MAGNESIUM 2.3 mg/dL (1.9-2.7); POTASSIUM SERUM 3.4 mEq/L (3.5-5.1); SGOT 15 U/L (13-39); SGPT/ALT 18 U/L (7-52); SODIUM SERUM 149 mEq/L (136-145)
[2017-07-18 04:59] LABS: BAND NEUTROPHILE 1 % (0-10); LYMPHOCYTE 3 % (20-50); MONOCYTE 1 % (2-10); NEUTROPHILS 95 % (40-80); TOTAL CELLS COUNTED 100
[2017-07-18 05:00] LABS: PLATELET ESTIMATE SLIGHT DECREASED (NORMAL)
[2017-07-18] MEDS: metroNIDAZOLE 500mg/NS 100mL 500 MG/100 ML BAG IV SCH ×3 (05:50→21:44)
[2017-07-18] MEDS: Levofloxacin 500mg/100mL 500 MG/100 ML BAG IV SCH (08:12)
[2017-07-18] MEDS: Polyvinyl Alcohol Ophth Soln 15 mL Bottle EACH EYE SCH (09:36)
[2017-07-18] MEDS ORDERED: Albumin 25% 25gm/100mL 25 GM/100 ML BTL IV ONE (12:37)
[2017-07-18] MEDS: KCL 20mEq/100mL Premix 20 MEQ/100 ML PIGGYBACK IV SCH ×2 (12:41→18:13)
--- NOTE | 2017-07-18 13:30 | General Progress Note ---
Subjective - Review of Systems Service Date: 07/18/17 Subjective: eyes barely open, on NRB Objective - Results Result Diagrams: 07/18/17 04:10 07/18/17 04:10 Recent Labs: Laboratory Last Values WBC 5.6 Th/cmm (4.8-10.8) 07/18/17 04:10 RBC 3.06 Mil/cmm (3.80-5.80) L 07/18/17 04:10 Hgb 8.6 gm/dL (12-16) L 07/18/17 04:10 Hct 25.8 % (41.0-60) L 07/18/17 04:10 MCV 84.4 fl (80-99) 07/18/17 04:10 MCH 28.2 pg (27.0-31.0) 07/18/17 04:10 MCHC Differential 33.5 pg (28.0-36.0) 07/18/17 04:10 RDW 14.6 % (11.5-20.0) 07/18/17 04:10 Plt Count 48 Th/cmm (150-400) L 07/18/17 04:10 MPV 9.7 fl 07/18/17 04:10 Neutrophils % MODEL AND DYE PERSON 07/17/17 04:19 Band Neutrophils % 1 % (0-10) 07/18/17 04:10 Lymphocytes % MODEL AND DYE PERSON 07/17/17 04:19 Monocytes % MODEL AND DYE PERSON 07/17/17 04:19 Eosinophils % 0.1 % (0.0-5.0) 07/12/17 04:40 Basophils % 0.0 % (0.0-2.0) 07/12/17 04:40 Neutrophils (Manual) 95 % (40-80) H 07/18/17 04:10 Lymphocytes 3 % (20-50) L 07/18/17 04:10 Monocytes 1 % (2-10) L 07/18/17 04:10 Eosinophils 0 % (0-5) 07/11/17 14:14 Basophils 0 % (0-3) 07/11/17 14:14 Platelet Estimate SLIGHT DECREASED (NORMAL) 07/18/17 04:10 [place] Cells 1+ 07/15/17 04:39 Eos Smear Source URINE 07/11/17 07:45 Eos Smear Total Cells NONE SEEN (NONE SEEN) 07/11/17 07:45 PT 21.9 SECONDS (9.5-11.5) H 07/13/17 04:15 INR 2.03 (0.5-1.4) H 07/13/17 04:15 PTT (Actin FS) 33.9 SECONDS (26.0-38.0) 07/17/17 04:19 D-Dimer 4700 ng/mL (100-400) H 07/10/17 04:10 Specimen Source Arterial 07/17/17 09:00 Sample Site RB 07/17/17 09:00 pH 7.53 (7.35-7.45) H 07/17/17 09:00 pCO2 27.0 mmHg (35.0-45.0) L 07/17/17 09:00 pO2 81.0 mmHg (80.0-100.0) 07/17/17 09:00 HCO3 25.6 mEq/L (20.0-26.0) 07/17/17 09:00 Base Excess 0.9 mEq/L (-3.0-3.0) 07/17/17 09:00 O2 Saturation 97.0 % (92.0-100.0) 07/17/17 09:00 Timothy Test NA 07/17/17 09:00 Vent Rate 12 07/17/17 09:00 Inspired O2 55 07/17/17 09:00 Tidal Volume 650 07/17/17 09:00 PEEP 6 07/17/17 09:00 Pressure (ins/psv/peep) 6 07/17/17 09:00 Critical Value SH 07/17/17 09:00 Sodium 149 mEq/L (136-145) H 07/18/17 04:10 Potassium 3.4 mEq/L (3.5-5.1) L 07/18/17 04:10 Chloride 121 mEq/L (98-107) H 07/18/17 04:10 Carbon Dioxide 23.6 mEq/L (21.0-31.0) 07/18/17 04:10 Anion Gap 7.8 (7.0-16.0) 07/18/17 04:10 BUN 46 mg/dL (7-25) H 07/18/17 04:10 Creatinine 0.8 mg/dL (0.7-1.3) 07/18/17 04:10 Est GFR ( Amer) TNP 07/18/17 04:10 Est GFR (Non-Af Amer) TNP 07/18/17 04:10 BUN/Creatinine Ratio 57.5 07/18/17 04:10 Glucose 190 mg/dL (70-105) H 07/18/17 04:10 POC Glucose 167 MG/DL (70 - 105) H 07/18/17 05:40 Whole Bld Lactic Acid 1.24 mmol/L (0.60-1.99) 07/15/17 04:39 Uric Acid 6.0 mg/dL (4.4-7.6) 07/11/17 04:20 Calcium 8.5 mg/dL (8.6-10.3) L 07/18/17 04:10 Phosphorus 3.0 mg/dL (2.5-5.0) 07/18/17 04:10 Magnesium 2.3 mg/dL (1.9-2.7) 07/18/17 04:10 Total Bilirubin 0.8 mg/dL (0.3-1.0) 07/18/17 04:10 AST 15 U/L (13-39) 07/18/17 04:10 ALT 18 U/L (7-52) 07/18/17 04:10 Alkaline Phosphatase 37 U/L (34-104) 07/18/17 04:10 Troponin I 0.03 ng/mL (0.01-0.05) 07/09/17 19:48 B-Natriuretic Peptide 19.8 pg/mL (5.0-100.0) 07/16/17 04:36 Total Protein 5.0 gm/dL (6.0-8.3) L 07/18/17 04:10 Albumin 2.7 gm/dL (4.2-5.5) L 07/18/17 04:10 Globulin 2.3 gm/dL 07/18/17 04:10 Albumin/Globulin Ratio 1.2 (1.0-1.8) 07/18/17 04:10 Prealbumin 7 mg/dL (9-32) L 07/16/17 04:36 Triglycerides 100 mg/dL (<150) 07/16/17 04:36 Cholesterol 48 mg/dL (<200) 07/10/17 04:10 LDL Cholesterol Direct 13 mg/dL (75-193) L 07/10/17 04:10 HDL Cholesterol 18 mg/dL (23-92) L 07/10/17 04:10 TSH 2.64 uIU/ml (0.34-5.60) 07/10/17 04:10 Urine Source ANSARI PORT 07/11/17 07:45 Urine Color YELLOW 07/11/17 07:45 Urine Clarity HAZY (CLEAR) 07/11/17 07:45 Urine pH 5.5 (4.6 - 8.0) 07/11/17 07:45 Ur Specific [place] 1.010 (1.005-1.030) 07/11/17 07:45 Urine Protein TRACE mg/dL (NEGATIVE) 07/11/17 07:45 Urine Glucose (UA) NEGATIVE mg/dL (NEGATIVE) 07/11/17 07:45 Urine Ketones NEGATIVE mg/dL (NEGATIVE) 07/11/17 07:45 Urine Blood SMALL (NEGATIVE) H 07/11/17 07:45 Urine Nitrate NEGATIVE (NEGATIVE) 07/11/17 07:45 Urine Bilirubin NEGATIVE (NEGATIVE) 07/11/17 07:45 Urine Urobilinogen 0.2 E.U./dL (0.2 - 1.0) 07/11/17 07:45 Ur Leukocyte Esterase TRACE (NEGATIVE) H 07/11/17 07:45 Urine RBC 0-2 /hpf (0-5) H 07/11/17 07:45 Urine WBC 2-5 /hpf (0-5) 07/11/17 07:45 Ur Epithelial Cells FEW /lpf (FEW) 07/11/17 07:45 Amorphous Sediment MODERATE PHOSPHATES (NONE SEEN) 07/11/17 02:35 Urine Bacteria FEW /hpf (NONE SEEN) 07/11/17 07:45 Fine Granular Casts 5-10 /lpf (NONE SEEN) H 07/11/17 02:35 Urine Osmolality 404 mOsmol/kg 07/11/17 02:35 Ur Random Sodium 88 mmol/L 07/11/17 07:45 Urine Creatinine 34.0 mg/dl (39.0-259.0) L 07/11/17 07:45 Urine Microalbumin 61.5 ug/mL (Not Estab.) 07/11/17 02:35 Vancomycin Trough 8.3 ug/mL (10-20) L 07/15/17 08:06 Random Vancomycin 22.3 ug/mL (5.0-40.0) 07/11/17 16:13 Levetiracetam 69.5 ug/mL (10.0-40.0) H 07/09/17 19:48 Ur L.pneumophila Ag Negative (Negative) 07/11/17 02:35 - Physical Exam Vitals and I&O: Vital Signs Temp 99.2 F 07/18/17 04:00 Pulse 100 07/18/17 11:28 Resp 27 07/18/17 11:28 BP 121/58 07/18/17 06:00 Pulse Ox 99 07/18/17 11:28 Intake & Output 07/17/17 07/18/17 07/18/17 18:59 06:59 18:59 Intake Total 1076.333 557.5 Output Total 520 Balance 556.333 557.5 Weight (lbs) 53.099 kg Intake: Intake, IV Amount 1076.333 557.5 Albumin 25% 25gm/100mL 25 200 gm In 100 ml @ 50 mls/hr IV Q8HR [facility] Rx#: [id number] Cefepime 1 gm In Dextrose 50 50 5% 50 ml @ 100 mls/hr IV Q8HR [facility] Rx#:[id number] Dextrose 5% 500 ml @ 20 208 mls/hr IV Q24H [facility] Rx#: [id number] Levetiracetam 750 mg In 107.5 107.5 Sodium Chloride 0.9% 100 ml @ 400 mls/hr IV Q12H [facility] Rx#:[id number] Levofloxacin 500mg/100mL 100 500 mg In 100 ml @ 100 mls/hr IV Q24HR [facility] Rx#: [id number] Multivitamin Inj 10 ml In 510.833 Amino Acids 4.25% /Dext 10% 1,140 ml In Intralipids 20% 50 ml @ 50 mls/hr IV .Q24H [facility] Rx #:[id number] metroNIDAZOLE 500mg/NS 100 200 100mL 500 mg In 100 ml @ 100 mls/hr IV Q8HR [facility] Rx #:[id number] Oral 0 Output: Urine 520 Other: # Bowel Movements 1 Stool Characteristics Soft Soft Liquid Liquid Brown Brown Active Medications: Current Medications Acetaminophen (Tylenol 325mg Supp) 650 mg RC Q6H PRN PRN Reason: Pain or Fever >101 Stop: 09/13/17 15:58 Last Admin: 07/15/17 17:00 Dose: 650 mg Albuterol/Ipratropium (Duoneb Neb) 3 ml HHN Q4HRT [facility] Stop: 09/08/17 14:59 Last Admin: 07/18/17 11:28 Dose: 3 ml Artificial Tears (Artificial Tears Ophth Soln) 1 drop EACH EYE DAILY [facility] Stop: 09/09/17 10:59 Last Admin: 07/18/17 09:36 Dose: 1 drop Atorvastatin Calcium (Lipitor) 20 mg PO HS [facility] Stop: 09/09/17 20:59 Last Admin: 07/17/17 20:10 Dose: Not Given Levofloxacin (Levaquin Pb) 500 mg in 100 mls @ 100 mls/hr IV Q24HR [facility] Stop: 09/09/17 07:59 Last Admin: 07/18/17 08:12 Dose: 100 mls/hr Metronidazole (Flagyl) 500 mg in 100 mls @ 100 mls/hr IV Q8HR [facility] Stop: 09/09/17 12:59 Last Admin: 07/18/17 12:41 Dose: 100 mls/hr Cefepime HCl 1 gm/ Dextrose 50 mls @ 100 mls/hr IV Q8HR [facility] Stop: 09/09/17 20:59 Last Admin: 07/18/17 04:00 Dose: 100 mls/hr Norepinephrine Bitartrate 4 mg (/ Sodium Chloride) 254 mls @ 0 mls/hr IV TITR PRN; Protocol; 0 MCG/MIN PRN Reason: BP MAINTENANCE (PER PROTOCOL) Stop: 09/11/17 09:59 Last Titration: 07/15/17 11:28 Dose: 0 mcg/min, 0 mls/hr Dextrose (D5w) 500 mls @ 20 mls/hr IV Q24H [facility] Stop: 09/13/17 14:59 Last Admin: 07/17/17 16:24 Dose: 20 mls/hr Levetiracetam 750 mg/ Sodium (Chloride) 107.5 mls @ 400 mls/hr IV Q12H [facility] Stop: 09/14/17 10:59 Last Infusion: 07/17/17 22:40 Dose: Infused Multivitamins/Minerals 10 ml/Amino Acids/ Fat Emulsion Intravenous 1,200 mls @ 50 mls/hr IV .Q24H [facility] Stop: 09/14/17 15:59 Last Admin: 07/17/17 16:13 Dose: 50 mls/hr Insulin Aspart (Novolog Insulin Sliding Scale) 0 units SUBQ Q6HR [facility] PRN Reason: Protocol Stop: 09/14/17 11:59 Last Admin: 07/18/17 05:51 Dose: 2 units Magnesium Hydroxide (Milk Of Magnesia) 30 ml PO HS PRN PRN Reason: Constipation Stop: 09/09/17 09:12 Methylprednisolone Sodium Succinate (Solu-Medrol) 40 mg IV Q6HR [facility] Stop: 09/11/17 17:59 Last Admin: 07/18/17 12:40 Dose: 40 mg Mirtazapine (Remeron) 7.5 mg PO HS [facility] Stop: 09/09/17 20:59 Last Admin: 07/17/17 20:11 Dose: Not Given Miscellaneous (Tpn Per Pharmacy) 1 [facility] PRN PRN PRN Reason: PROTOCOL Stop: 09/13/17 12:33 Miscellaneous (Probiotic Screen) 1 [facility] PRN PRN PRN Reason: PROTOCOL Stop: 09/15/17 16:05 Pantoprazole Sodium (Protonix) 40 mg IVP DAILY [facility] Stop: 09/09/17 09:59 Last Admin: 07/18/17 09:31 Dose: 40 mg Sertraline HCl (Zoloft) 25 mg PO DAILY [facility] PRN Reason: Protocol Stop: 09/09/17 09:14 Last Admin: 07/18/17 10:05 Dose: Not Given Sucralfate (Carafate) 1 gm PO ACHS [facility] Stop: 09/09/17 11:29 Last Admin: 07/18/17 09:34 Dose: 1 gm Zolpidem Tartrate (Ambien) 5 mg PO HS PRN PRN Reason: Insomnia Stop: 09/09/17 20:59 Last Admin: 07/11/17 20:48 Dose: 5 mg General: Mild distress HEENT: Atraumatic, EOMI Neck: Supple, +2 carotid pulse wo bruit Cardiovascular: Regular rate, Normal S1, Normal S2 Lungs: Other (scattered rhonchi) Abdomen: Bowel sounds, Soft Extremities: Other (severely contracted), no Edema Neurological: Sensation intact Skin: no Rash Psych/Mental Status: Mood NL - Procedures Procedures: Procedures Procedure Code Date ASSISTANCE WITH RESPIRATORY VENTILATION, 24-96 HRS, CPAP [id number] 07/09/17 POS AIRWAY PRESSURE CPAP 46201 07/09/17 Assessment/Plan - Assessment Assessment: CHRISTIAN S/P CVA Left Hemiparesis CAD Shock 2/2 Sepsis Sepsis: HAP Severe Malnutrition Severe Contractures acute decomp CHF Acute Resp Failure on BIPAP - Plan Plan: Lab - Result Diagrams 07/11/17 04:20 07/11/17 04:20 Current Medications Acetaminophen (Tylenol) 650 mg PO Q6HR PRN PRN Reason: Pain or Fever >101 Stop: 09/09/17 09:12 Albuterol/Ipratropium (Duoneb Neb) 3 ml HHN Q4HRT [facility] Stop: 09/08/17 14:59 Last Admin: 07/11/17 12:15 Dose: 3 ml Artificial Tears (Artificial Tears Ophth Soln) 1 drop EACH EYE DAILY [facility] Stop: 09/09/17 10:59 Last Admin: 07/11/17 12:54 Dose: 1 drop Atorvastatin Calcium (Lipitor) 20 mg PO HS [facility] Stop: 09/09/17 20:59 Norepinephrine Bitartrate 4 mg (/ Dextrose) 254 mls @ 30.48 mls/hr IV TITR PRN ; Protocol; 8 MCG/MIN PRN Reason: BP MAINTENANCE (PER PROTOCOL) Stop: 09/08/17 02:02 Last Admin: 07/11/17 12:28 Dose: 7 mcg/min, 26.67 mls/hr Heparin Sodium/Dextrose (Heparin Drip) 25,000 units in 250 mls @ 0 mls/hr IV TITR PRN; Protocol; 0 UNITS/HR PRN Reason: PROTOCOL Stop: 09/08/17 02:36 Last Titration: 07/10/17 14:30 Dose: 0 units/hr, 0 mls/hr Vancomycin HCl 1 gm/ Sodium (Chloride) 250 mls @ 165 mls/hr IV Q24H [facility] Stop: 09/08/17 11:29 Last Infusion: 07/11/17 12:25 Dose: Infused Levofloxacin (Levaquin Pb) 500 mg in 100 mls @ 100 mls/hr IV Q24HR [facility] Stop: 09/09/17 07:59 Last Infusion: 07/11/17 09:45 Dose: Infused Piperacillin Sod/Tazobactam (Sod 4.5 gm/ Sodium Chloride) 50 mls @ 100 mls/hr IV Q8HR [facility] Stop: 09/08/17 17:37 Last Infusion: 07/11/17 12:40 Dose: Infused Potassium Chloride 10 meq/ (Dextrose) 1,005 mls @ 125 mls/hr IV .Q8H3M [facility] Stop: 09/09/17 09:14 Last Admin: 07/11/17 10:00 Dose: 125 mls/hr Metronidazole (Flagyl) 500 mg in 100 mls @ 100 mls/hr IV Q8HR [facility] Stop: 09/09/17 12:59 Last Infusion: 07/11/17 13:30 Dose: Infused Levetiracetam (Keppra) 750 mg PO Q12HR [facility] Stop: 09/09/17 09:59 Last Admin: 07/11/17 10:00 Dose: Not Given Magnesium Hydroxide (Milk Of Magnesia) 30 ml PO HS PRN PRN Reason: Constipation Stop: 09/09/17 09:12 Mirtazapine (Remeron) 7.5 mg PO HS [facility] Stop: 09/09/17 20:59 Pantoprazole Sodium (Protonix) 40 mg IVP DAILY [facility] Stop: 09/09/17 09:59 Last Admin: 07/11/17 12:54 Dose: 40 mg Sertraline HCl (Zoloft) 25 mg PO DAILY [facility] PRN Reason: Protocol Stop: 09/09/17 09:14 Sucralfate (Carafate) 1 gm PO ACHS [facility] Stop: 09/09/17 11:29 Last Admin: 07/11/17 11:10 Dose: Not Given Kidney fnc improved w/ BUN/CR of 46/1.1 replace K, MG decrease hydration @ 20 ml/hr ; Clinimix @ 50 ml/hr due to persistent CHF sudden improvement in WBC off Levo CXR still w/ b/l infiltrates likely HAP continue ABx thrombocytopenia 2/2 sepsis, DIC, meds administer 1 dose of lasix Lab - Result Diagrams 07/18/17 04:10 07/18/17 04:10 Nutritional Asmnt/Malnutr-PDOC - Dietary Evaluation Malnutrition Findings (Please click <Entered> for more info): Nutritional Asmnt/Malnutrition Start: 07/11/17 14: 59 Text: Status: Complete Freq: Document 07/11/17 15:00 LCHENG (Rec: 07/11/17 15:15 [facility]-[email or web address]) Nutritional Asmnt/Malnutrition Patient General Information Nutritional Screening High Risk Diagnosis hypoxemia, respiratory disress , ARF Pertinent Medical Hx/Surgical Hx CVA, paralysis, seizure, heart disease Subjective Information Consult received on Ashish score 12. Pt seen resting in bed at time of visit, awake, on O2 mask. RN reported pt was choking on [facility] soft chopped diet, tolerating thin liquid. Current Diet Order/ Nutrition Support [facility] soft chopped, cardiac diet Pertinent Medications levaquin, remeron, protonix, piperacillin, vancomycin Pertinent Labs 3 Na 154, K 2.7, Cl 125, BUN 57, Cr 1.3, Glucose 175, Ca 8 .5 Nutritional Hx/Data Height 1.73 m Height (Calculated Centimeters) 172.7 Current Weight (lbs) 49.895 kg Weight (Calculated Kilograms) 49.9 Weight (Calculated Grams) 11441.2 [place] Body Weight 154 Body Mass Index (BMI) 16.7 Weight Status Underweight GI Symptoms GI Symptoms None Last BM 3/5 Difficult in: Chewing Skin Integrity/Comment: reddeded to back discoloered to right let/thigh , right hand/forearm, right upper extremity, right upper extremity and head pressure area to cyccyx/sacral and right hip Estimated Nutritional Goals Calories/Kcals/Kg 25-30 based on IBW 70kg Kcals Calculated 0494-8824 Protein g/k-1.2 monitor renal labs Protein Calculated 70-84 Fluid: ml 1750-2100ml Nutritional Problem 2. Problem Problem altered nutrition related lab values Etiology imbalanced electrolytes/fluid, CHRISTIAN, endocrine dysfunction Signs/Symptoms: Na 154, K 2.7, Cl 125, BUN 57, Glucose 175 1. Problem Problem chewing difficulty Etiology weakness Signs/Symptoms: pt choking on [facility] soft chopped diet Intervention/Recommendation Comments 1. Modify diet to [facility] soft ground cardiac diet. If PO intake low, will consider nutrition supplement. RN notified. 2. Monitor PO intake, wt, labs and skin integrity 3. F/U as high risk in 2-3 days, 07/13-07/14 Expected Outcomes/Goals Expected Outcomes/Goals 1. PO intake to meet at least 75% of nutritional needs. 2. Wt stability, skin to remain intact, labs to approach WNL.
--- NOTE | 2017-07-18 14:23 | Infectious Disease Prog Note ---
Infectious Disease Subjective - Review of Systems Service Date: 07/18/17 Subjective: There is no new change, no fever. more alert today. communicating now. on bipap. developed watery diarrhea. C diff ordered. Infectious Disease Objective - Results Result Diagrams: 07/18/17 04:10 07/18/17 04:10 Recent Labs: Laboratory Last Values WBC 5.6 Th/cmm (4.8-10.8) 07/18/17 04:10 RBC 3.06 Mil/cmm (3.80-5.80) L 07/18/17 04:10 Hgb 8.6 gm/dL (12-16) L 07/18/17 04:10 Hct 25.8 % (41.0-60) L 07/18/17 04:10 MCV 84.4 fl (80-99) 07/18/17 04:10 MCH 28.2 pg (27.0-31.0) 07/18/17 04:10 MCHC Differential 33.5 pg (28.0-36.0) 07/18/17 04:10 RDW 14.6 % (11.5-20.0) 07/18/17 04:10 Plt Count 48 Th/cmm (150-400) L 07/18/17 04:10 MPV 9.7 fl 07/18/17 04:10 Neutrophils % MACERATOR OPERATOR 07/17/17 04:19 Band Neutrophils % 1 % (0-10) 07/18/17 04:10 Lymphocytes % MACERATOR OPERATOR 07/17/17 04:19 Monocytes % MACERATOR OPERATOR 07/17/17 04:19 Eosinophils % 0.1 % (0.0-5.0) 07/12/17 04:40 Basophils % 0.0 % (0.0-2.0) 07/12/17 04:40 Neutrophils (Manual) 95 % (40-80) H 07/18/17 04:10 Lymphocytes 3 % (20-50) L 07/18/17 04:10 Monocytes 1 % (2-10) L 07/18/17 04:10 Eosinophils 0 % (0-5) 07/11/17 14:14 Basophils 0 % (0-3) 07/11/17 14:14 Platelet Estimate SLIGHT DECREASED (NORMAL) 07/18/17 04:10 [place] Cells 1+ 07/15/17 04:39 Eos Smear Source URINE 07/11/17 07:45 Eos Smear Total Cells NONE SEEN (NONE SEEN) 07/11/17 07:45 PT 21.9 SECONDS (9.5-11.5) H 07/13/17 04:15 INR 2.03 (0.5-1.4) H 07/13/17 04:15 PTT (Actin FS) 33.9 SECONDS (26.0-38.0) 07/17/17 04:19 D-Dimer 4700 ng/mL (100-400) H 07/10/17 04:10 Specimen Source Arterial 07/17/17 09:00 Sample Site RB 07/17/17 09:00 pH 7.53 (7.35-7.45) H 07/17/17 09:00 pCO2 27.0 mmHg (35.0-45.0) L 07/17/17 09:00 pO2 81.0 mmHg (80.0-100.0) 07/17/17 09:00 HCO3 25.6 mEq/L (20.0-26.0) 07/17/17 09:00 Base Excess 0.9 mEq/L (-3.0-3.0) 07/17/17 09:00 O2 Saturation 97.0 % (92.0-100.0) 07/17/17 09:00 Timothy Test NA 07/17/17 09:00 Vent Rate 12 07/17/17 09:00 Inspired O2 55 07/17/17 09:00 Tidal Volume 650 07/17/17 09:00 PEEP 6 07/17/17 09:00 Pressure (ins/psv/peep) 6 07/17/17 09:00 Critical Value SH 07/17/17 09:00 Sodium 149 mEq/L (136-145) H 07/18/17 04:10 Potassium 3.4 mEq/L (3.5-5.1) L 07/18/17 04:10 Chloride 121 mEq/L (98-107) H 07/18/17 04:10 Carbon Dioxide 23.6 mEq/L (21.0-31.0) 07/18/17 04:10 Anion Gap 7.8 (7.0-16.0) 07/18/17 04:10 BUN 46 mg/dL (7-25) H 07/18/17 04:10 Creatinine 0.8 mg/dL (0.7-1.3) 07/18/17 04:10 Est GFR ( Amer) TNP 07/18/17 04:10 Est GFR (Non-Af Amer) TNP 07/18/17 04:10 BUN/Creatinine Ratio 57.5 07/18/17 04:10 Glucose 190 mg/dL (70-105) H 07/18/17 04:10 POC Glucose 167 MG/DL (70 - 105) H 07/18/17 05:40 Whole Bld Lactic Acid 1.24 mmol/L (0.60-1.99) 07/15/17 04:39 Uric Acid 6.0 mg/dL (4.4-7.6) 07/11/17 04:20 Calcium 8.5 mg/dL (8.6-10.3) L 07/18/17 04:10 Phosphorus 3.0 mg/dL (2.5-5.0) 07/18/17 04:10 Magnesium 2.3 mg/dL (1.9-2.7) 07/18/17 04:10 Total Bilirubin 0.8 mg/dL (0.3-1.0) 07/18/17 04:10 AST 15 U/L (13-39) 07/18/17 04:10 ALT 18 U/L (7-52) 07/18/17 04:10 Alkaline Phosphatase 37 U/L (34-104) 07/18/17 04:10 Troponin I 0.03 ng/mL (0.01-0.05) 07/09/17 19:48 B-Natriuretic Peptide 19.8 pg/mL (5.0-100.0) 07/16/17 04:36 Total Protein 5.0 gm/dL (6.0-8.3) L 07/18/17 04:10 Albumin 2.7 gm/dL (4.2-5.5) L 07/18/17 04:10 Globulin 2.3 gm/dL 07/18/17 04:10 Albumin/Globulin Ratio 1.2 (1.0-1.8) 07/18/17 04:10 Prealbumin 7 mg/dL (9-32) L 07/16/17 04:36 Triglycerides 100 mg/dL (<150) 07/16/17 04:36 Cholesterol 48 mg/dL (<200) 07/10/17 04:10 LDL Cholesterol Direct 13 mg/dL (75-193) L 07/10/17 04:10 HDL Cholesterol 18 mg/dL (23-92) L 07/10/17 04:10 TSH 2.64 uIU/ml (0.34-5.60) 07/10/17 04:10 Urine Source ANSARI PORT 07/11/17 07:45 Urine Color YELLOW 07/11/17 07:45 Urine Clarity HAZY (CLEAR) 07/11/17 07:45 Urine pH 5.5 (4.6 - 8.0) 07/11/17 07:45 Ur Specific [place] 1.010 (1.005-1.030) 07/11/17 07:45 Urine Protein TRACE mg/dL (NEGATIVE) 07/11/17 07:45 Urine Glucose (UA) NEGATIVE mg/dL (NEGATIVE) 07/11/17 07:45 Urine Ketones NEGATIVE mg/dL (NEGATIVE) 07/11/17 07:45 Urine Blood SMALL (NEGATIVE) H 07/11/17 07:45 Urine Nitrate NEGATIVE (NEGATIVE) 07/11/17 07:45 Urine Bilirubin NEGATIVE (NEGATIVE) 07/11/17 07:45 Urine Urobilinogen 0.2 E.U./dL (0.2 - 1.0) 07/11/17 07:45 Ur Leukocyte Esterase TRACE (NEGATIVE) H 07/11/17 07:45 Urine RBC 0-2 /hpf (0-5) H 07/11/17 07:45 Urine WBC 2-5 /hpf (0-5) 07/11/17 07:45 Ur Epithelial Cells FEW /lpf (FEW) 07/11/17 07:45 Amorphous Sediment MODERATE PHOSPHATES (NONE SEEN) 07/11/17 02:35 Urine Bacteria FEW /hpf (NONE SEEN) 07/11/17 07:45 Fine Granular Casts 5-10 /lpf (NONE SEEN) H 07/11/17 02:35 Urine Osmolality 404 mOsmol/kg 07/11/17 02:35 Ur Random Sodium 88 mmol/L 07/11/17 07:45 Urine Creatinine 34.0 mg/dl (39.0-259.0) L 07/11/17 07:45 Urine Microalbumin 61.5 ug/mL (Not Estab.) 03/05/18 02:35 Vancomycin Trough 8.3 ug/mL (10-20) L 07/15/17 08:06 Random Vancomycin 22.3 ug/mL (5.0-40.0) 07/11/17 16:13 Levetiracetam 69.5 ug/mL (10.0-40.0) H 07/09/17 19:48 Ur L.pneumophila Ag Negative (Negative) 07/11/17 02:35 - Physical Exam Vitals and I&O: Vital Signs Temp 99.2 F 07/18/17 04:00 Pulse 100 07/18/17 11:28 Resp 27 07/18/17 11:28 BP 121/58 07/18/17 06:00 Pulse Ox 99 07/18/17 11:28 Intake & Output 07/17/17 07/18/17 07/18/17 18:59 06:59 18:59 Intake Total 1076.333 607.5 Output Total 520 Balance 556.333 607.5 Weight (lbs) 53.099 kg Intake: Intake, IV Amount 1076.333 607.5 Albumin 25% 25gm/100mL 25 200 gm In 100 ml @ 50 mls/hr IV Q8HR [facility] Rx#: [id number] Cefepime 1 gm In Dextrose 50 100 5% 50 ml @ 100 mls/hr IV Q8HR [facility] Rx#:[id number] Dextrose 5% 500 ml @ 20 208 mls/hr IV Q24H [facility] Rx#: [id number] Levetiracetam 750 mg In 107.5 107.5 Sodium Chloride 0.9% 100 ml @ 400 mls/hr IV Q12H [facility] Rx#:[id number] Levofloxacin 500mg/100mL 100 500 mg In 100 ml @ 100 mls/hr IV Q24HR [facility] Rx#: [id number] Multivitamin Inj 10 ml In 510.833 Amino Acids 4.25% /Dext 10% 1,140 ml In Intralipids 20% 50 ml @ 50 mls/hr IV .Q24H [facility] Rx #:[id number] metroNIDAZOLE 500mg/NS 100 200 100mL 500 mg In 100 ml @ 100 mls/hr IV Q8HR [facility] Rx #:[id number] Oral 0 Output: Urine 520 Other: # Bowel Movements 1 Stool Characteristics Soft Soft Liquid Liquid Brown Brown Active Medications: Current Medications Acetaminophen (Tylenol 325mg Supp) 650 mg RC Q6H PRN PRN Reason: Pain or Fever >101 Stop: 09/13/17 15:58 Last Admin: 07/15/17 17:00 Dose: 650 mg Albuterol/Ipratropium (Duoneb Neb) 3 ml HHN Q4HRT [facility] Stop: 09/08/17 14:59 Last Admin: 07/18/17 11:28 Dose: 3 ml Artificial Tears (Artificial Tears Ophth Soln) 1 drop EACH EYE DAILY [facility] Stop: 09/09/17 10:59 Last Admin: 07/18/17 09:36 Dose: 1 drop Atorvastatin Calcium (Lipitor) 20 mg PO HS [facility] Stop: 09/09/17 20:59 Last Admin: 07/17/17 20:10 Dose: Not Given Levofloxacin (Levaquin Pb) 500 mg in 100 mls @ 100 mls/hr IV Q24HR [facility] Stop: 09/09/17 07:59 Last Admin: 07/18/17 08:12 Dose: 100 mls/hr Metronidazole (Flagyl) 500 mg in 100 mls @ 100 mls/hr IV Q8HR [facility] Stop: 09/09/17 12:59 Last Admin: 07/18/17 12:41 Dose: 100 mls/hr Cefepime HCl 1 gm/ Dextrose 50 mls @ 100 mls/hr IV Q8HR [facility] Stop: 09/09/17 20:59 Last Admin: 07/18/17 13:35 Dose: 100 mls/hr Norepinephrine Bitartrate 4 mg (/ Sodium Chloride) 254 mls @ 0 mls/hr IV TITR PRN; Protocol; 0 MCG/MIN PRN Reason: BP MAINTENANCE (PER PROTOCOL) Stop: 09/11/17 09:59 Last Titration: 07/15/17 11:28 Dose: 0 mcg/min, 0 mls/hr Dextrose (D5w) 500 mls @ 20 mls/hr IV Q24H [facility] Stop: 09/13/17 14:59 Last Admin: 07/17/17 16:24 Dose: 20 mls/hr Levetiracetam 750 mg/ Sodium (Chloride) 107.5 mls @ 400 mls/hr IV Q12H [facility] Stop: 09/14/17 10:59 Last Admin: 07/18/17 13:35 Dose: 100 mls/hr Multivitamins/Minerals 10 ml/Amino Acids/ Fat Emulsion Intravenous 1,200 mls @ 50 mls/hr IV .Q24H [facility] Stop: 09/14/17 15:59 Last Admin: 07/17/17 16:13 Dose: 50 mls/hr Insulin Aspart (Novolog Insulin Sliding Scale) 0 units SUBQ Q6HR [facility] PRN Reason: Protocol Stop: 09/14/17 11:59 Last Admin: 07/18/17 13:30 Dose: Not Given Magnesium Hydroxide (Milk Of Magnesia) 30 ml PO HS PRN PRN Reason: Constipation Stop: 09/09/17 09:12 Methylprednisolone Sodium Succinate (Solu-Medrol) 40 mg IVP Q6HR [facility] Stop: 09/16/17 17:59 Mirtazapine (Remeron) 7.5 mg PO HS [facility] Stop: 09/09/17 20:59 Last Admin: 07/17/17 20:11 Dose: Not Given Miscellaneous (Tpn Per Pharmacy) 1 ea PRN PRN PRN Reason: PROTOCOL Stop: 09/13/17 12:33 Miscellaneous (Probiotic Screen) 1 [facility] PRN PRN PRN Reason: PROTOCOL Stop: 09/15/17 16:05 Pantoprazole Sodium (Protonix) 40 mg IVP DAILY [facility] Stop: 09/09/17 09:59 Last Admin: 07/18/17 09:31 Dose: 40 mg Sertraline HCl (Zoloft) 25 mg PO DAILY [facility] PRN Reason: Protocol Stop: 09/09/17 09:14 Last Admin: 07/18/17 10:05 Dose: Not Given Sucralfate (Carafate) 1 gm PO ACHS [facility] Stop: 09/09/17 11:29 Last Admin: 07/18/17 13:39 Dose: Not Given Zolpidem Tartrate (Ambien) 5 mg PO HS PRN PRN Reason: Insomnia Stop: 09/09/17 20:59 Last Admin: 07/11/17 20:48 Dose: 5 mg General: no acute distress, well developed, well nourished HEENT: atraumatic, normocephalic Neck: supple, no thyromegaly Cardiovascular: S1S2, regular Lungs: clear to percussion, rhonchi Abdomen: soft, no tender, no distended, no rebound Extremities: no cyanosis, no clubbing, no edema Neurological: other (obtunded.) Skin: intact - Procedures Procedures: Procedures Procedure Code Date ASSISTANCE WITH RESPIRATORY VENTILATION, 24-96 HRS, CPAP 4U06344 07/09/17 POS AIRWAY PRESSURE CPAP 23142 07/09/17 Infectious Disease Assmt/Plan - Assessment Assessment: 1. Severe septic shock with multiorgan failure. Improved. 2. Pneumonia, likely aspiration pneumonia versus atypical pneumonia. 3. Cerebrovascular accident. 4. Respiratory insufficiency. 5. Hepatitis. 6. Benign prostatic hypertrophy. 7. Acute renal failure, acute kidney injury. 8. Lactic acidosis. improved 9. History of hypertension. 10. History of chronic disease. 11. History of seizure disorder. 12. Sacral decubitus ulcer. - Plan Plan: Will continue levaquin, cefepime and flagyl. Nutritional Asmnt/Malnutr-PDOC - Dietary Evaluation Malnutrition Findings (Please click <Entered> for more info): Nutritional Asmnt/Malnutrition Start: 07/11/17 14: 59 Text: Status: Complete Freq: Document 07/11/17 15:00 LCHENG (Rec: 07/11/17 15:15 LCHENG [email or web address]) Nutritional Asmnt/Malnutrition Patient General Information Nutritional Screening High Risk Diagnosis hypoxemia, respiratory disress , ARF Pertinent Medical Hx/Surgical Hx CVA, paralysis, seizure, heart disease Subjective Information Consult received on Ashish score 12. Pt seen resting in bed at time of visit, awake, on O2 mask. RN reported pt was choking on [facility] soft chopped diet, tolerating thin liquid. Current Diet Order/ Nutrition Support [facility] soft chopped, cardiac diet Pertinent Medications levaquin, remeron, protonix, piperacillin, vancomycin Pertinent Labs 3/5 Na 154, K 2.7, Cl 125, BUN 57, Cr 1.3, Glucose 175, Ca 8 .5 Nutritional Hx/Data Height 1.73 m Height (Calculated Centimeters) 172.7 Current Weight (lbs) 49.895 kg Weight (Calculated Kilograms) 49.9 Weight (Calculated Grams) 17807.2 [place] Body Weight 154 Body Mass Index (BMI) 16.7 Weight Status Underweight GI Symptoms GI Symptoms None Last BM 3/5 Difficult in: Chewing Skin Integrity/Comment: reddeded to back discoloered to right let/thigh , right hand/forearm, right upper extremity, right upper extremity and head pressure area to cyccyx/sacral and right hip Estimated Nutritional Goals Calories/Kcals/Kg 25-30 based on IBW 70kg Kcals Calculated 1417-1142 Protein g/k-1.2 monitor renal labs Protein Calculated 70-84 Fluid: ml 1750-2100ml Nutritional Problem 2. Problem Problem altered nutrition related lab values Etiology imbalanced electrolytes/fluid, CHRISTIAN, endocrine dysfunction Signs/Symptoms: Na 154, K 2.7, Cl 125, BUN 57, Glucose 175 1. Problem Problem chewing difficulty Etiology weakness Signs/Symptoms: pt choking on [facility] soft chopped diet Intervention/Recommendation Comments 1. Modify diet to [facility] soft ground cardiac diet. If PO intake low, will consider nutrition supplement. RN notified. 2. Monitor PO intake, wt, labs and skin integrity 3. F/U as high risk in 2-3 days, 07/13-07/14 Expected Outcomes/Goals Expected Outcomes/Goals 1. PO intake to meet at least 75% of nutritional needs. 2. Wt stability, skin to remain intact, labs to approach WNL.
[2017-07-18] MEDS ORDERED: KCL 20mEq/100mL Premix 20 MEQ/100 ML PIGGYBACK IV ONE (15:31)
[2017-07-18] MEDS: KCL 20mEq/100mL Premix 20 MEQ/100 ML PIGGYBACK IV ONE (15:37)
[2017-07-18] MEDS: Dextrose 5% 500 ML IV SCH (18:11)
[2017-07-18] MEDS: DEXT 10% IV SCH (18:14)
[2017-07-18] MEDS: MULTIVITAMIN IV SCH (18:14)
[2017-07-18] MEDS: INTRALIPIDS IV SCH (18:14)
[2017-07-18] MEDS: AMINO ACIDS IV SCH (18:14)
[2017-07-18] MEDS: methylPREDNISolone SS 40 mg Vial IVP SCH (19:48)
[2017-07-18] MEDS: Atorvastatin Calcium 10 MG TAB PO SCH (20:30)
[2017-07-19] MEDS: methylPREDNISolone SS 40 mg Vial IVP SCH ×3 (00:30→11:18)
[2017-07-19] MEDS: INSULIN ASPART SLIDING SCALE 100 UNITS/ML UNIT SUBQ SCH ×3 (00:30→12:43)
[2017-07-19] MEDS: Albuterol/Ipratropium Neb 3 ML AERS HHN SCH ×4 (02:48→15:12)
[2017-07-19] MEDS: metroNIDAZOLE 500mg/NS 100mL 500 MG/100 ML BAG IV SCH ×2 (05:19→12:46)
[2017-07-19 05:27] LABS: % EOSINOPHILS 0.1 % (0.0-5.0); % LYMPHOCYTES 1.9 % (20.0-50.0); % MONOCYTES 21.3 % (2.0-10.0); % NEUTROPHILS 76.7 % (40.0-80.0); HEMATOCRIT 24.7 % (41.0-60); HEMOGLOBIN 8.2 gm/dL (12-16); LYMPHOCYTE ABSOLUTE 0.1 Th/cmm (1.5-3.0); MEAN CELL VOLUME 84.5 fl (80-99); MEAN CORPUSCULAR HGB CONC 33.2 pg (28.0-36.0); MEAN PLATELET VOLUME 8.8 fl; MONOCYTE ABSOLUTE 1.4 Th/cmm (0.3-1.0); PLATELET COUNT 66 Th/cmm (150-400); RED BLOOD COUNT 2.93 Mil/cmm (3.80-5.80); RED CELL DISTRIBUTION WIDTH 14.2 % (11.5-20.0); WHITE BLOOD COUNT 6.5 Th/cmm (4.8-10.8)
[2017-07-19 05:47] LABS: ALB/GLOB RATIO 1.1 (1.0-1.8); ALBUMIN 2.5 gm/dL (4.2-5.5); ANION GAP 6.3 (7.0-16.0); BILIRUBIN,TOTAL 0.8 mg/dL (0.3-1.0); BUN - UREA NITROGEN 41 mg/dL (7-25); CALCIUM SERUM 8.4 mg/dL (8.6-10.3); CARBON DIOXIDE 23.5 mEq/L (21.0-31.0); CHLORIDE 118 mEq/L (98-107); CREATININE - SERUM 0.6 mg/dL (0.7-1.3); GLUCOSE 173 mg/dL (70-105); POTASSIUM SERUM 3.8 mEq/L (3.5-5.1); SGOT 13 U/L (13-39); SGPT/ALT 17 U/L (7-52); SODIUM SERUM 144 mEq/L (136-145); TOTAL PROTEIN,SERUM 4.8 gm/dL (6.0-8.3)
[2017-07-19 05:48] LABS: ALKALINE PHOSPHATASE 33 U/L (34-104); MAGNESIUM 2.3 mg/dL (1.9-2.7); PHOSPHOROUS 3.1 mg/dL (2.5-5.0)
--- NOTE | 2017-07-19 08:22 | Diagnostic Imaging Report ---
Portable chest x-ray HISTORY: Pneumonia Compared with prior exam of July 17, 2017, no change in severe bilateral predominantly lower lobe pulmonary infiltrates. The heart size is normal. Patient markedly rotated. IMPRESSION: 1. No change in relatively severe predominantly lower lobe bilateral pulmonary infiltrates.
[2017-07-19] MEDS: Levofloxacin 500mg/100mL 500 MG/100 ML BAG IV SCH (08:42)
[2017-07-19] MEDS: Polyvinyl Alcohol Ophth Soln 15 mL Bottle EACH EYE SCH (08:45)
--- NOTE | 2017-07-19 10:48 | Discharge Summary ---
DATE OF DISCHARGE: 07/19/2017 DATE OF DISCHARGE: 07/19/2017 ADMITTING DIAGNOSES: 1. Acute respiratory failure. 2. Hypoxemia. 3. Pneumonia. 4. Sepsis. 5. Dehydration. 6. Hypernatremia. 7. Acute renal insufficiency. SECONDARY DIAGNOSES: 1. History of cerebrovascular accident. 2. History of hyperlipidemia. 3. History of seizure disorder. 4. History of acid reflux disease. DISCHARGE DIAGNOSES: 1. Acute respiratory failure-clinically stable-on 100% nonrebreather mask. 2. Bilateral complex pneumonia with effusions. 3. Sepsis, hemodynamically stable. 4. Leukocytosis, resolved. 5. Acute renal insufficiency, improved. 6. Thrombocytopenia, likely secondary to disseminated intravascular coagulation, stable. 7. Electrolyte imbalance. 8. Malnutrition, on TPN. CONSULTANTS: 1. Fausto Steinberg MD, Pulmonary Critical Care. 2. Philip Troncoso MD, Nephrology. 3. Jose F Ng MD, ID. 4. Sonja Suarez MD, Urology. MAJOR PROCEDURES: Duplex venous ultrasound done on 07/10 shows no evidence of DVT. A bladder ultrasound done on the showed debris within the urinary bladder with possible clot or other mass lesions, urinary bladder wall thickening with mild irregularity which may be due to chronic infectious inflammatory or less likely neoplastic process. Abdominal ultrasound on the showed borderline hepatomegaly. No focal abnormalities identified. Borderline distention of the gallbladder. No gallstones identified. V/Q scan done on the , it was a low probability of pulmonary embolus. MEDICATIONS ON DISCHARGE: Tylenol 650 per rectum q. 6 hours p.r.n. for fever of 101, DuoNeb q. 4 hours, atorvastatin 20 at bedtime, cefepime 1 g q.8., insulin sliding scale per protocol, Keppra 750 IV q.12., Levaquin 500 mg q.24., mag oxide 30 mL at bedtime p.r.n. for constipation, Solu-Medrol 40 mg IV q.6., Flagyl 500 mg IV q.8., Remeron 7.5 at bedtime, TPN per pharmacy, Protonix 40 daily IV push, Zoloft 25 daily, Carafate 1 g q.a.c. and at bedtime, and Ambien 5 mg at bedtime p.r.n. for insomnia. BRIEF HOSPITAL COURSE: This is a 72-year-old gentleman who presented from [facility] with respiratory distress and lethargy. In the ER, pertinent findings included a pH of 7.52, a pCO2 of 29 with a pO2 of 53, and sats of 91%. He also had a sodium level of 150, a potassium of 3.1, a BUN of 88, and a creatinine of 1.6. Initial x-rays showed a questionable right lower lobe infiltrate. The patient was admitted to the ICU and placed on BiPAP as well as a heparin drip given his acute hypoxic event. The heparin drip was discontinued by hospital day #2 given that duplex venous ultrasound and the left lung nuclear scans were both negative. He was eventually taken off the BiPAP, but has remained on high oxygen levels, i.e. 100% nonrebreather mask. He was also placed on broad-spectrum IV antibiotics, IV steroids, and consultations were asked for critical care/pulmonary as well as ID. Given his renal insufficiency and electrolyte imbalance, a Nephrology consult was also placed. The patient was given IV fluids with improvement of his renal insufficiency and hypernatremia. A followup x-ray done on 07/11 shows persistent left basilar hazy infiltrates and overall slight improvement in the right basilar hazy infiltrate. Clinically speaking, the patient appears to be comfortable, but remains extremely weak and lethargic. He was started on TPN given the above findings. Of note, he was also noted to have low urine output on admission, which improved after a Sena was placed by Urology managing consultant. Currently, the patient remains at the ICU on 100% FiO2, broad spectrum antibiotics (cefepime, Levaquin, and Flagyl), and is still getting TPN for nutritional support. Given his current findings, the patient's family was agreeable for the patient to be transferred to LTAC. DISPOSITION: The patient was transferred to [facility] with ICU care. JOB# [id number] RONAK
--- NOTE | 2017-07-19 14:33 | General Progress Note ---
Subjective - Review of Systems Service Date: 07/19/17 Subjective: eyes barely open, on NRB Objective - Results Result Diagrams: 07/19/17 05:00 07/19/17 05:00 Recent Labs: Laboratory Last Values WBC 6.5 Th/cmm (4.8-10.8) 07/19/17 05:00 RBC 2.93 Mil/cmm (3.80-5.80) L 07/19/17 05:00 Hgb 8.2 gm/dL (12-16) L 07/19/17 05:00 Hct 24.7 % (41.0-60) L 07/19/17 05:00 MCV 84.5 fl (80-99) 07/19/17 05:00 MCH 28.0 pg (27.0-31.0) 07/19/17 05:00 MCHC Differential 33.2 pg (28.0-36.0) 07/19/17 05:00 RDW 14.2 % (11.5-20.0) 07/19/17 05:00 Plt Count 66 Th/cmm (150-400) L 07/19/17 05:00 MPV 8.8 fl 07/19/17 05:00 Neutrophils % 76.7 % (40.0-80.0) 07/19/17 05:00 Band Neutrophils % 1 % (0-10) 07/18/17 04:10 Lymphocytes % 1.9 % (20.0-50.0) L 07/19/17 05:00 Monocytes % 21.3 % (2.0-10.0) H 07/19/17 05:00 Eosinophils % 0.1 % (0.0-5.0) 07/19/17 05:00 Basophils % 0.0 % (0.0-2.0) 07/19/17 05:00 Neutrophils (Manual) 95 % (40-80) H 07/18/17 04:10 Lymphocytes 3 % (20-50) L 07/18/17 04:10 Monocytes 1 % (2-10) L 07/18/17 04:10 Eosinophils 0 % (0-5) 07/11/17 14:14 Basophils 0 % (0-3) 07/11/17 14:14 Platelet Estimate SLIGHT DECREASED (NORMAL) 07/18/17 04:10 Andi Cells 1+ 07/15/17 04:39 Eos Smear Source URINE 07/11/17 07:45 Eos Smear Total Cells NONE SEEN (NONE SEEN) 07/11/17 07:45 PT 21.9 SECONDS (9.5-11.5) H 07/13/17 04:15 INR 2.03 (0.5-1.4) H 07/13/17 04:15 PTT (Actin FS) 33.9 SECONDS (26.0-38.0) 07/17/17 04:19 D-Dimer 4700 ng/mL (100-400) H 07/10/17 04:10 Specimen Source Arterial 07/17/17 09:00 Sample Site RB 07/17/17 09:00 pH 7.53 (7.35-7.45) H 07/17/17 09:00 pCO2 27.0 mmHg (35.0-45.0) L 07/17/17 09:00 pO2 81.0 mmHg (80.0-100.0) 07/17/17 09:00 HCO3 25.6 mEq/L (20.0-26.0) 07/17/17 09:00 Base Excess 0.9 mEq/L (-3.0-3.0) 07/17/17 09:00 O2 Saturation 97.0 % (92.0-100.0) 07/17/17 09:00 Timothy Test NA 07/17/17 09:00 Vent Rate 12 07/17/17 09:00 Inspired O2 55 07/17/17 09:00 Tidal Volume 650 07/17/17 09:00 PEEP 6 07/17/17 09:00 Pressure (ins/psv/peep) 6 07/17/17 09:00 Critical Value SH 07/17/17 09:00 Sodium 144 mEq/L (136-145) 07/19/17 05:00 Potassium 3.8 mEq/L (3.5-5.1) 07/19/17 05:00 Chloride 118 mEq/L (98-107) H 07/19/17 05:00 Carbon Dioxide 23.5 mEq/L (21.0-31.0) 07/19/17 05:00 Anion Gap 6.3 (7.0-16.0) L 07/19/17 05:00 BUN 41 mg/dL (7-25) H 07/19/17 05:00 Creatinine 0.6 mg/dL (0.7-1.3) L 07/19/17 05:00 Est GFR ( Amer) TNP 07/19/17 05:00 Est GFR (Non-Af Amer) TNP 07/19/17 05:00 BUN/Creatinine Ratio 68.3 07/19/17 05:00 Glucose 173 mg/dL (70-105) H 07/19/17 05:00 POC Glucose 136 MG/DL (70 - 105) H 07/19/17 12:35 Hemoglobin A1c % 5.0 % (4.0-6.0) 07/18/17 04:10 Whole Bld Lactic Acid 1.24 mmol/L (0.60-1.99) 07/15/17 04:39 Uric Acid 6.0 mg/dL (4.4-7.6) 07/11/17 04:20 Calcium 8.4 mg/dL (8.6-10.3) L 07/19/17 05:00 Phosphorus 3.1 mg/dL (2.5-5.0) 07/19/17 05:00 Magnesium 2.3 mg/dL (1.9-2.7) 07/19/17 05:00 Total Bilirubin 0.8 mg/dL (0.3-1.0) 07/19/17 05:00 AST 13 U/L (13-39) 07/19/17 05:00 ALT 17 U/L (7-52) 07/19/17 05:00 Alkaline Phosphatase 33 U/L (34-104) L 07/19/17 05:00 Troponin I 0.03 ng/mL (0.01-0.05) 07/09/17 19:48 B-Natriuretic Peptide 19.8 pg/mL (5.0-100.0) 07/16/17 04:36 Total Protein 4.8 gm/dL (6.0-8.3) L 07/19/17 05:00 Albumin 2.5 gm/dL (4.2-5.5) L 07/19/17 05:00 Globulin 2.3 gm/dL 07/19/17 05:00 Albumin/Globulin Ratio 1.1 (1.0-1.8) 07/19/17 05:00 Prealbumin 7 mg/dL (9-32) L 07/16/17 04:36 Triglycerides 100 mg/dL (<150) 07/16/17 04:36 Cholesterol 34 mg/dL (<200) 07/19/17 05:00 LDL Cholesterol Direct 13 mg/dL (75-193) L 07/10/17 04:10 HDL Cholesterol 18 mg/dL (23-92) L 07/10/17 04:10 TSH 2.64 uIU/ml (0.34-5.60) 07/10/17 04:10 Urine Source ANSARI PORT 07/11/17 07:45 Urine Color YELLOW 07/11/17 07:45 Urine Clarity HAZY (CLEAR) 07/11/17 07:45 Urine pH 5.5 (4.6 - 8.0) 07/11/17 07:45 Ur Specific [place] 1.010 (1.005-1.030) 07/11/17 07:45 Urine Protein TRACE mg/dL (NEGATIVE) 07/11/17 07:45 Urine Glucose (UA) NEGATIVE mg/dL (NEGATIVE) 07/11/17 07:45 Urine Ketones NEGATIVE mg/dL (NEGATIVE) 07/11/17 07:45 Urine Blood SMALL (NEGATIVE) H 07/11/17 07:45 Urine Nitrate NEGATIVE (NEGATIVE) 07/11/17 07:45 Urine Bilirubin NEGATIVE (NEGATIVE) 07/11/17 07:45 Urine Urobilinogen 0.2 E.U./dL (0.2 - 1.0) 07/11/17 07:45 Ur Leukocyte Esterase TRACE (NEGATIVE) H 07/11/17 07:45 Urine RBC 0-2 /hpf (0-5) H 07/11/17 07:45 Urine WBC 2-5 /hpf (0-5) 07/11/17 07:45 Ur Epithelial Cells FEW /lpf (FEW) 07/11/17 07:45 Amorphous Sediment MODERATE PHOSPHATES (NONE SEEN) 07/11/17 02:35 Urine Bacteria FEW /hpf (NONE SEEN) 07/11/17 07:45 Fine Granular Casts 5-10 /lpf (NONE SEEN) H 07/11/17 02:35 Urine Osmolality 404 mOsmol/kg 07/11/17 02:35 Ur Random Sodium 88 mmol/L 07/11/17 07:45 Urine Creatinine 34.0 mg/dl (39.0-259.0) L 07/11/17 07:45 Urine Microalbumin 61.5 ug/mL (Not Estab.) 07/11/17 02:35 Vancomycin Trough 8.3 ug/mL (10-20) L 07/15/17 08:06 Random Vancomycin 22.3 ug/mL (5.0-40.0) 07/11/17 16:13 Levetiracetam 69.5 ug/mL (10.0-40.0) H 07/09/17 19:48 Ur L.pneumophila Ag Negative (Negative) 07/11/17 02:35 - Physical Exam Vitals and I&O: Vital Signs Temp 98 F 07/19/17 12:00 Pulse 81 07/19/17 13:00 Resp 21 07/19/17 13:00 BP 101/54 07/19/17 13:00 Pulse Ox 100 07/19/17 13:00 Intake & Output 07/18/17 07/19/17 07/19/17 18:59 06:59 18:59 Intake Total 2867.5 1364.5 Output Total 1680 600 Balance 1187.5 764.5 Weight (lbs) 52.889 kg 70.76 kg Intake: Intake, IV Amount 2157.5 357.5 Cefepime 1 gm In Dextrose 50 50 5% 50 ml @ 100 mls/hr IV Q8HR [facility] Rx#:[id number] Dextrose 5% 500 ml @ 20 500 mls/hr IV Q24H [facility] Rx#: [id number] KCL 20mEq/100mL Premix 20 100 meq In 100 ml @ 50 mls/ hr IV Q2H [facility] Rx#: [id number] Levetiracetam 750 mg In 107.5 107.5 Sodium Chloride 0.9% 100 ml @ 400 mls/hr IV Q12H [facility] Rx#:[id number] Levofloxacin 500mg/100mL 100 500 mg In 100 ml @ 100 mls/hr IV Q24HR [facility] Rx#: [id number] Multivitamin Inj 10 ml In 1200 Amino Acids 4.25% /Dext 10% 1,140 ml In Intralipids 20% 50 ml @ 50 mls/hr IV .Q24H [facility] Rx #:[id number] metroNIDAZOLE 500mg/NS 100 200 100mL 500 mg In 100 ml @ 100 mls/hr IV Q8HR [facility] Rx #:[id number] Oral 0 TPN/PPN 610 600 Albumin 100 Other 407 Output: Urine 1680 600 Stool 0 Other: # Bowel Movements 1 Stool Characteristics Soft Formed Active Medications: Current Medications Acetaminophen (Tylenol 325mg Supp) 650 mg RC Q6H PRN PRN Reason: Pain or Fever >101 Stop: 09/13/17 15:58 Last Admin: 07/15/17 17:00 Dose: 650 mg Albuterol/Ipratropium (Duoneb Neb) 3 ml HHN Q4HRT [facility] Stop: 09/08/17 14:59 Last Admin: 07/19/17 10:50 Dose: 3 ml Artificial Tears (Artificial Tears Ophth Soln) 1 drop EACH EYE DAILY [facility] Stop: 09/09/17 10:59 Last Admin: 07/19/17 08:45 Dose: 1 drop Atorvastatin Calcium (Lipitor) 20 mg PO HS [facility] Stop: 09/09/17 20:59 Last Admin: 07/18/17 20:30 Dose: Not Given Levofloxacin (Levaquin Pb) 500 mg in 100 mls @ 100 mls/hr IV Q24HR [facility] Stop: 09/09/17 07:59 Last Admin: 07/19/17 08:42 Dose: 100 mls/hr Metronidazole (Flagyl) 500 mg in 100 mls @ 100 mls/hr IV Q8HR [facility] Stop: 09/09/17 12:59 Last Admin: 07/19/17 12:46 Dose: 100 mls/hr Norepinephrine Bitartrate 4 mg (/ Sodium Chloride) 254 mls @ 0 mls/hr IV TITR PRN; Protocol; 0 MCG/MIN PRN Reason: BP MAINTENANCE (PER PROTOCOL) Stop: 09/11/17 09:59 Last Titration: 07/15/17 11:28 Dose: 0 mcg/min, 0 mls/hr Dextrose (D5w) 500 mls @ 20 mls/hr IV Q24H [facility] Stop: 09/13/17 14:59 Last Admin: 07/18/17 18:11 Dose: 20 mls/hr Levetiracetam 750 mg/ Sodium (Chloride) 107.5 mls @ 400 mls/hr IV Q12H [facility] Stop: 09/14/17 10:59 Last Admin: 07/19/17 11:17 Dose: 400 mls/hr Multivitamins/Minerals 10 ml/Amino Acids/ Fat Emulsion Intravenous 1,200 mls @ 50 mls/hr IV .Q24H [facility] Stop: 09/14/17 15:59 Last Admin: 07/18/17 18:14 Dose: 50 mls/hr Insulin Aspart (Novolog Insulin Sliding Scale) 0 units SUBQ Q6HR [facility] PRN Reason: Protocol Stop: 09/14/17 11:59 Last Admin: 07/19/17 12:43 Dose: Not Given Magnesium Hydroxide (Milk Of Magnesia) 30 ml PO HS PRN PRN Reason: Constipation Stop: 09/09/17 09:12 Methylprednisolone Sodium Succinate (Solu-Medrol) 40 mg IVP Q6HR [facility] Stop: 09/16/17 17:59 Last Admin: 07/19/17 11:18 Dose: 40 mg Mirtazapine (Remeron) 7.5 mg PO HS [facility] Stop: 09/09/17 20:59 Last Admin: 07/18/17 20:28 Dose: Not Given Miscellaneous (Tpn Per Pharmacy) 1 ea PRN PRN PRN Reason: PROTOCOL Stop: 09/13/17 12:33 Miscellaneous (Probiotic Screen) 1 ea PRN PRN PRN Reason: PROTOCOL Stop: 09/15/17 16:05 Pantoprazole Sodium (Protonix) 40 mg IVP DAILY [facility] Stop: 09/09/17 09:59 Last Admin: 07/19/17 08:45 Dose: 40 mg Sertraline HCl (Zoloft) 25 mg PO DAILY [facility] PRN Reason: Protocol Stop: 09/09/17 09:14 Last Admin: 07/19/17 09:46 Dose: Not Given Sucralfate (Carafate) 1 gm PO ACHS [facility] Stop: 09/09/17 11:29 Last Admin: 07/19/17 12:46 Dose: Not Given General: Mild distress HEENT: Atraumatic, EOMI Neck: Supple, +2 carotid pulse wo bruit Cardiovascular: Regular rate, Normal S1, Normal S2 Lungs: Other (scattered rhonchi) Abdomen: Bowel sounds, Soft Extremities: Other (severely contracted), no Edema Neurological: Sensation intact Skin: no Rash Psych/Mental Status: Mood NL - Procedures Procedures: Procedures Procedure Code Date ASSISTANCE WITH RESPIRATORY VENTILATION, 24-96 HRS, CPAP [id number] 07/09/17 POS AIRWAY PRESSURE CPAP 84004 07/09/17 Assessment/Plan - Assessment Assessment: CHRISTIAN S/P CVA Left Hemiparesis CAD Shock 2/2 Sepsis Sepsis: HAP Severe Malnutrition Severe Contractures acute decomp CHF Acute Resp Failure on NRB mask - Plan Plan: Lab - Result Diagrams 07/11/17 04:20 07/11/17 04:20 Current Medications Acetaminophen (Tylenol) 650 mg PO Q6HR PRN PRN Reason: Pain or Fever >101 Stop: 09/09/17 09:12 Albuterol/Ipratropium (Duoneb Neb) 3 ml HHN Q4HRT [facility] Stop: 09/08/17 14:59 Last Admin: 07/11/17 12:15 Dose: 3 ml Artificial Tears (Artificial Tears Ophth Soln) 1 drop EACH EYE DAILY [facility] Stop: 09/09/17 10:59 Last Admin: 07/11/17 12:54 Dose: 1 drop Atorvastatin Calcium (Lipitor) 20 mg PO HS [facility] Stop: 09/09/17 20:59 Norepinephrine Bitartrate 4 mg (/ Dextrose) 254 mls @ 30.48 mls/hr IV TITR PRN ; Protocol; 8 MCG/MIN PRN Reason: BP MAINTENANCE (PER PROTOCOL) Stop: 09/08/17 02:02 Last Admin: 07/11/17 12:28 Dose: 7 mcg/min, 26.67 mls/hr Heparin Sodium/Dextrose (Heparin Drip) 25,000 units in 250 mls @ 0 mls/hr IV TITR PRN; Protocol; 0 UNITS/HR PRN Reason: PROTOCOL Stop: 09/08/17 02:36 Last Titration: 07/10/17 14:30 Dose: 0 units/hr, 0 mls/hr Vancomycin HCl 1 gm/ Sodium (Chloride) 250 mls @ 165 mls/hr IV Q24H [facility] Stop: 09/08/17 11:29 Last Infusion: 07/11/17 12:25 Dose: Infused Levofloxacin (Levaquin Pb) 500 mg in 100 mls @ 100 mls/hr IV Q24HR [facility] Stop: 09/09/17 07:59 Last Infusion: 07/11/17 09:45 Dose: Infused Piperacillin Sod/Tazobactam (Sod 4.5 gm/ Sodium Chloride) 50 mls @ 100 mls/hr IV Q8HR [facility] Stop: 09/08/17 17:37 Last Infusion: 07/11/17 12:40 Dose: Infused Potassium Chloride 10 meq/ (Dextrose) 1,005 mls @ 125 mls/hr IV .Q8H3M [facility] Stop: 09/09/17 09:14 Last Admin: 07/11/17 10:00 Dose: 125 mls/hr Metronidazole (Flagyl) 500 mg in 100 mls @ 100 mls/hr IV Q8HR [facility] Stop: 09/09/17 12:59 Last Infusion: 07/11/17 13:30 Dose: Infused Levetiracetam (Keppra) 750 mg PO Q12HR [facility] Stop: 09/09/17 09:59 Last Admin: 07/11/17 10:00 Dose: Not Given Magnesium Hydroxide (Milk Of Magnesia) 30 ml PO HS PRN PRN Reason: Constipation Stop: 09/09/17 09:12 Mirtazapine (Remeron) 7.5 mg PO HS [facility] Stop: 09/09/17 20:59 Pantoprazole Sodium (Protonix) 40 mg IVP DAILY [facility] Stop: 09/09/17 09:59 Last Admin: 07/11/17 12:54 Dose: 40 mg Sertraline HCl (Zoloft) 25 mg PO DAILY [facility] PRN Reason: Protocol Stop: 09/09/17 09:14 Sucralfate (Carafate) 1 gm PO ACHS [facility] Stop: 09/09/17 11:29 Last Admin: 07/11/17 11:10 Dose: Not Given Lab - Result Diagrams 07/19/17 05:00 07/19/17 05:00 Kidney fnc improved w/ BUN/CR of 41/0.6 replace K, MG decrease hydration @ 20 ml/hr ; Clinimix @ 50 ml/hr due to persistent CHF sudden improvement in WBC off Levo CXR still w/ b/l infiltrates likely HAP continue ABx thrombocytopenia 2/2 sepsis, DIC, meds Nutritional Asmnt/Malnutr-PDOC - Dietary Evaluation Malnutrition Findings (Please click <Entered> for more info): Nutritional Asmnt/Malnutrition Start: 07/11/17 14: 59 Text: Status: Complete Freq: Document 07/11/17 15:00 LCHENG (Rec: 07/11/17 15:15 LCHENG [email or web address]) Nutritional Asmnt/Malnutrition Patient General Information Nutritional Screening High Risk Diagnosis hypoxemia, respiratory disress , ARF Pertinent Medical Hx/Surgical Hx CVA, paralysis, seizure, heart disease Subjective Information Consult received on Ashish score 12. Pt seen resting in bed at time of visit, awake, on O2 mask. RN reported pt was choking on [facility] soft chopped diet, tolerating thin liquid. Current Diet Order/ Nutrition Support Mech soft chopped, cardiac diet Pertinent Medications levaquin, remeron, protonix, piperacillin, vancomycin Pertinent Labs 3/ Na 154, K 2.7, Cl 125, BUN 57, Cr 1.3, Glucose 175, Ca 8 .5 Nutritional Hx/Data Height 1.73 m Height (Calculated Centimeters) 172.7 Current Weight (lbs) 49.895 kg Weight (Calculated Kilograms) 49.9 Weight (Calculated Grams) 03324.2 [place] Body Weight 154 Body Mass Index (BMI) 16.7 Weight Status Underweight GI Symptoms GI Symptoms None Last BM 3/ Difficult in: Chewing Skin Integrity/Comment: reddeded to back discoloered to right let/thigh , right hand/forearm, right upper extremity, right upper extremity and head pressure area to cyccyx/sacral and right hip Estimated Nutritional Goals Calories/Kcals/Kg 25-30 based on IBW 70kg Kcals Calculated 3363-2202 Protein g/k-1.2 monitor renal labs Protein Calculated 70-84 Fluid: ml 1750-2100ml Nutritional Problem 2. Problem Problem altered nutrition related lab values Etiology imbalanced electrolytes/fluid, CHRISTIAN, endocrine dysfunction Signs/Symptoms: Na 154, K 2.7, Cl 125, BUN 57, Glucose 175 1. Problem Problem chewing difficulty Etiology weakness Signs/Symptoms: [facility] Intervention/Recommendation Comments 1. Modify diet to mec soft ground cardiac diet. If PO intake low, will consider nutrition supplement. RN notified. 2. Monitor PO intake, wt, labs and skin integrity 3. F/U as high risk in 2-3 days, 07/13-07/14 Expected Outcomes/Goals Expected Outcomes/Goals 1. PO intake to meet at least 75% of nutritional needs. 2. Wt stability, skin to remain intact, labs to approach WNL.
== END 2017-07-19 16:00 | DRG 871 ==
LOC: ER 19:01 → ICU 22:05
PROVIDERS: ADMIT Internal Medicine; ATTEND Internal Medicine
PROC: 5A09557 Assistance with Respiratory Ventilation, Greater than 96 Consecutive Hours, Continuous Positive Airway Pressure (ICD-10-PCS; principal; 2017-07-12)
PROC: 0XH833Z Insertion of Infusion Device into Right Upper Arm, Percutaneous Approach (ICD-10-PCS; 2017-07-13)
PROC: 3E0436Z Introduction of Nutritional Substance into Central Vein, Percutaneous Approach (ICD-10-PCS; 2017-07-16)
DX: A41.9 Sepsis, unspecified organism (principal); R65.21 Severe sepsis with septic shock; D65 Disseminated intravascular coagulation [defibrination syndrome]; J96.00 Acute respiratory failure, unspecified whether with hypoxia or hypercapnia; E43 Unspecified severe protein-calorie malnutrition; L89.159 Pressure ulcer of sacral region, unspecified stage; R53.2 Functional quadriplegia; J18.9 Pneumonia, unspecified organism; N17.9 Acute kidney failure, unspecified; G20 Parkinson's disease; I69.354 Hemiplegia and hemiparesis following cerebral infarction affecting left non-dominant side; I11.0 Hypertensive heart disease with heart failure; E86.0 Dehydration; I25.10 Atherosclerotic heart disease of native coronary artery without angina pectoris; G40.909 Epilepsy, unspecified, not intractable, without status epilepticus; M19.90 Unspecified osteoarthritis, unspecified site; R62.7 Adult failure to thrive; E78.5 Hyperlipidemia, unspecified; N40.0 Benign prostatic hyperplasia without lower urinary tract symptoms; F32.9 Major depressive disorder, single episode, unspecified; K75.9 Inflammatory liver disease, unspecified; R33.9 Retention of urine, unspecified; I50.9 Heart failure, unspecified; Z68.23 Body mass index [BMI] 23.0-23.9, adult
CPT/HCPCS: 36415-UA; 36600-90; 71045-TC; 71250-TC; 76700-TC; 76857-TC; 80053-TC; 80061-TC; 80202-TC; 80299-90; 81001-TC; 81015-TC; 82043-90; 82465-TC; 82570-TC; 82803-TC; 82948-90; 83036-90; 83605; 83735-TC; 83880-TC; 83935-90; 84100-TC; 84134-90; 84300-TC; 84443-TC; 84478-TC; 84484-TC; 84550-TC; 85007-TC; 85025-TC; 85027-TC; 85379-TC; 85610-TC; 85730-TC; 87070; 87086-90; 87449-90; 90799; 93005; 93970-TC-50; 94640; 94660; A9540; A9567; C9113; J0456; J0692; J0696; J1644; J1815; J1940; J1953; J1956; J2001; J2543; J2920; J2930; J3370; J3475; J3480; J7030; J7040; J7042; J7070; P9046; X6452; X6598; Z7610